=== PATIENT | female | born 1950 ===

== ENCOUNTER 2023-03-12 22:36 | Inpatient (IN) | payer MEDICARE, SELFPAY ==
--- NOTE | 2023-03-12 | ECG_ITS ---
Test Reason : TACHYCARDIA Blood Pressure : / mmHG Vent. Rate : 140 BPM Atrial Rate : 000 BPM P-R Int : 000 ms QRS Dur : 144 ms QT Int : 364 ms P-R-T Axes : 000 133 -49 degrees QTc Int : 555 ms Possible Atrial flutter with 2 to 1 block Left bundle branch block Abnormal ECG No previous ECGs available Referred By: Chris Mendez Electronically Signed By:JENNA CORNELIUS MD
--- NOTE | ~2023-03-12 | XR_ITS ---
EXAMINATION: XR CHEST CLINICAL INFORMATION: Shortness of breath COMPARISON: None available. TECHNIQUE: Frontal view of the chest was obtained. FINDINGS: There is mild cardiac enlargement. There is mild central pulmonary vascular congestion along with some peribronchial cuffing and thickening of the minor fissure. Tiny pleural effusions may be present. Bibasilar atelectasis is seen. Degenerative changes are present in the spine with scoliosis convex to right. XR/XR chest 1V IMPRESSION: Cardiomegaly with mild pulmonary vascular congestion and possible tiny pleural effusions.
--- NOTE | ~2023-03-12 | CT_ITS ---
EXAMINATION: CT ANGIOGRAM OF THE CHEST WITH AND WITHOUT CONTRAST (CT PULMONARY ANGIOGRAM FOR PE) CLINICAL INFORMATION: Reason for Exam acute sob ?PE COMPARISON: None available. TECHNIQUE: Prior to contrast administration, noncontrast localization images were obtained. Subsequently, multidetector volumetric imaging was performed from the thoracic inlet to below the diaphragms following the administration of 65 mL Omnipaque 350 intravenous contrast. No contrast reaction reported Sagittal, coronal, and MIP oblique sagittal reformatted images were obtained on the CT workstation, uploaded to PACS, and reviewed. This CT examination was performed using dose optimization techniques as appropriate, variously including the following: *Automated exposure control *Adjustment of mA and/or kV according to patient size (this includes techniques or standardized protocols for targeted exams where dose is matched to indication/reason for exam; i.e. extremities or head) *Use of iterative reconstruction technique Total exam dose-length product 372 mGy-cm FINDINGS: QUALITY OF STUDY/CONTRAST BOLUS: Suboptimal. PULMONARY ARTERIES: Limited evaluation due to extensive respiratory motion artifact. However, within these limitations there does appear to be a filling defect in the right lower lobe pulmonary artery on image 266/514 and possibly in a left lower lobe segmental vessel on image 287/514, suspicious for pulmonary emboli. THORACIC AORTA: Suboptimally assessed due to the phase of postcontrast imaging. There is atherosclerotic calcification along the aorta. LUNG: Significantly limited detailed evaluation due to extensive respiratory motion artifact. Mild bibasilar atelectasis is suspected. PLEURA: Small right and trace left pleural effusions. No pneumothorax. MEDIASTINUM: Visualized thyroid gland is grossly unremarkable. No appreciable mediastinal lymphadenopathy. There is cardiomegaly without pericardial effusion. No evidence of septal bowing or right heart strain. CORONARY ARTERY CALCIFICATION: None visualized on this study. CHEST WALL/AXILLA: No axillary or internal mammary lymphadenopathy. OSSEOUS STRUCTURES: No acute or suspicious osseous abnormality. UPPER ABDOMEN: Grossly unremarkable for acute findings, though suboptimally assessed due to motion artifact. Partially visualized hypodensity in the lateral left kidney favors a cyst; no follow-up recommended. No reflux of contrast into the hepatic veins to suggest elevated right heart pressures. CT/CT angio chest PE protocol IMPRESSION: 1. Limited assessment due to extensive respiratory motion artifact. However, there do appear to be filling defects in the right lower lobe pulmonary artery and possibly in a left lower lobe segmental vessel, suspicious for pulmonary emboli. 2. Small right and trace left pleural effusions. 3. Cardiomegaly. VTE: positive. This critical result was discussed with Dr. Tellez on 03/13/2023 1:23 AM, and it was ascertained that the content and urgency of the report was understood at the time of direct communication.
--- NOTE | ~2023-03-12 | XR_ITS ---
EXAMINATION: XR CHEST CLINICAL INFORMATION: Central line COMPARISON: 03/12/2023 TECHNIQUE: Frontal view of the chest was obtained. FINDINGS: Right IJ central line tip lies in the region of the cavoatrial junction. Lung volumes are symmetric. Mild bibasilar opacities favoring atelectasis along with small pleural effusions, better demonstrated on recent CT. No evidence of pneumothorax. Mildly prominent central vasculature without overt edema. Cardiac silhouette remains enlarged. Calcification is present at the aortic arch. No acute osseous findings are seen. XR/XR chest 1V IMPRESSION: Right IJ central line tip in the region of the cavoatrial junction. Small pleural effusions and mild bibasilar opacities favoring atelectasis.
--- NOTE | 2023-03-12 22:47 | ECG_ITS ---
Test Reason : RYTHYM CHANGE Blood Pressure : / mmHG Vent. Rate : 147 BPM Atrial Rate : 147 BPM P-R Int : 080 ms QRS Dur : 140 ms QT Int : 320 ms P-R-T Axes : 000 121 -50 degrees QTc Int : 500 ms Possible Atrial flutter with 2 to 1 block Left bundle branch block T wave abnormality, consider inferolateral ischemia Abnormal ECG When compared with ECG of 12-MAR-2023 22:44, No significant changes seen Referred By: Deb Escamilla Electronically Signed By:JENNA CORNELIUS MD
--- NOTE | 2023-03-12 22:47 | ED_ITS ---
HPI - SOB/Dyspnea General Chief Complaint: Dyspnea Stated Complaint: SOB,RESPIRATORY DISTRESS 78% RA 95%W/ CPAP Time Seen by Provider: 03/12/23 22:38 Source: patient and EMS Mode of arrival: EMS Limitations: no limitations History of Present Illness HPI Narrative: Patient is 79 years old with history of left MCA stroke with right-sided weakness , thrombocythemia, AFib on aspirin and Plavix,diabetes, hypertension no history of heart failure or lung conditions came from long term for acute shortness breath saturating 75% with dry cough no fever no chills no chest pain or palpitation on arrival patient was tachycardic with heart rate of 140 saturating 95% on CPAP patient is DNR DNI Related Data Allergies Allergy/AdvReac Type Severity Reaction Status Date / Time lisinopril Allergy Unknown Unknown Verified 03/12/23 23:14 atorvastatin AdvReac Unknown Unknown Verified 03/12/23 23:14 metformin AdvReac Unknown Unknown Verified 03/12/23 23:14 spironolactone AdvReac Unknown Unknown Verified 03/12/23 23:14 Review of Systems 2 Review of Systems: Yes all other systems are reviewed and are negative [facility] Past Medical History Medical History (Updated 03/13/23 @ 01:33 by Chris Mendez MD) Essential thrombocythemia Rheumatic valvular disease Hyperlipemia HTN (hypertension) Atrial fibrillation CKD (chronic kidney disease) stage 3, GFR 30-59 ml/min Diabetes mellitus Aphasia Chronic ischemic left MCA stroke Social History Social History Advance Directives: No Advance Directives Information Provided: Yes Physical Exam 2 Vital Signs: Vital Signs: Last Vital Signs Temp 98.7 F 03/13/23 00:16 Pulse 115 H 03/13/23 02:50 Resp 28 H 03/13/23 02:50 BP 90/67 03/13/23 02:50 Pulse Ox 98 03/13/23 02:50 O2 Del Method High Flow Nasal C annula 03/13/23 02:50 O2 Flow Rate 35 03/13/23 02:50 Oxygen Flow Rate 5 03/12/23 22:55 BMI result Body Mass Index 22.8 Appearance: Alert. Oriented X3. severe respiratory distress , thin emaciated Eyes: PERRLA, ENT: Pharynx normal. Oral Mucosa moist Neck: Normal inspection. Neck supple. CVS: tachycardic with heart rate of 140. Pulses normal. Respiratory: No respiratory distress. Equal air entry bilateral, no wheezing/rales/rhonchi Abdomen: Soft and nontender. Bowel sounds are present, no mass palpable, no CVA tenderness Skin: Skin warm and dry. Normal skin color. Normal skin turgor. Extremities: No lower extremity edema. No calf tenderness Neuro: Oriented X 3. right hemiparesis .No cerebellar signs , cranial nerves II-XII intact Medications Administered Generic Name Dose Route Start Last Admin Trade Name Freq PRN Reason Stop Dose Admin Diltiazem HCl 125 mg/ Sodium 125 mls @ 0 mls/hr 03/13/23 01:00 03/13/23 02:18 Chloride IVCONT 15 mg/hr .Q0M STONE 15 mls/hr Titration Protocol Per Protocol Discontinued Medications Generic Name Dose Route Start Last Admin Trade Name Freq PRN Reason Stop Dose Admin Acetaminophen 650 mg 03/12/23 23:04 03/12/23 23:12 Acetaminophen Supp 650 Mg Supp.Rect LA 03/12/23 23:05 650 mg ONCE ONE Administration Dexamethasone Sodium Phosphate 6 mg 03/13/23 02:05 03/13/23 02:29 Dexamethasone Sod Phosphate 4 Mg/Ml Vial IVPUSH 03/13/23 02:06 6 mg ONCE ONE Administration Diltiazem HCl 10 mg 03/12/23 23:01 03/12/23 23:10 Diltiazem Hcl 50 Mg/10 Ml Vial IVPUSH 03/12/23 23:02 10 mg STAT STA Administration Furosemide 20 mg 03/12/23 23:25 03/13/23 00:02 Furosemide 20 Mg/2 Ml Vial IVPUSH 03/12/23 23:26 20 mg ONCE ONE Administration Protocol Heparin Sodium (Porcine) 3,700 unit 03/13/23 01:26 03/13/23 01:39 Heparin Sodium,Porcine 5,000 Unit/Ml Vial 60 unit/kg (3700 unit) 03/13/23 01:27 3,700 unit IVPUSH Administration ONCE ONE Sodium Chloride 1,000 mls @ 999 mls/hr 03/12/23 23:03 03/13/23 01:31 Ns IV 03/13/23 00:03 Infused .Q1H1M ONE Infusion Ceftriaxone Sodium 1 gm/ 50 mls @ 100 mls/hr 03/12/23 23:15 03/13/23 01:31 Sodium Chloride IV 03/12/23 23:44 Infused ONCE ONE Infusion Calcium Gluconate 2 gm in 100 mls @ 50 mls/hr 03/12/23 23:25 03/13/23 01:14 Calcium Gluconate IV 03/13/23 01:24 50 mls/hr ONCE ONE Administration Insulin Human Regular 5 unit 03/13/23 01:32 03/13/23 02:32 Insulin Regular, Human 100 Unit/Ml 3 Ml Vial IVPUSH 03/13/23 01:33 5 unit ONCE ONE Administration Iohexol 65 ml 03/13/23 00:39 03/13/23 00:40 Iohexol 350 Mg/Ml 100 Ml Infus..Btl IV 03/13/23 00:40 65 ml ONCE ONE Administration Sodium Zirconium Cyclosilicate 10 gm 03/12/23 23:25 03/13/23 00:02 Sodium Zirconium Cyclosilicate 10 Gm Powd.Pack PO 03/12/23 23:26 10 gm ONCE ONE Administration Medical Decision Making Medical Decision Making [facility] Narrative: patient with COVID-19 with UTI with acute shortness of breath CTA chest done which showed bilateral PE, pleural effusion no saddle emboli will start patient on haparin and admit patient was placed on high-flow but tachypnea and increased shortness of breath at this time patient on high Flow 50% FiO2 35 liters/minutes Differential Diagnosis Differential Diagnoses: The differential diagnosis associated with the presentation includes CHF/pneumonia/ COVID/ PE/pneumothorax /sepsis acute hypoxic failure Admission/Observation Consideration of admission/observation: Escalation of care including admission/observation considered Consult Healthcare Provider Management of the patient was discussed with: Hospitalist Lab Data [facility] Lab Attestation statement: I reviewed the patient's lab results. 03/12/23 22:52 03/13/23 01:11 Labs: Lab Results 03/12/23 03/12/23 03/12/23 Range/Units 00:00 22:45 22:52 WBC 22.2 H (4.8-10.8) X10*3/uL RBC 4.29 (4.20-5.50) X10*6/uL Hgb 12.1 (12.0-16.0) g/dl Hct 37.2 (37.0-47.0) % MCV 86.7 (80.0-98.0) fL MCH 28.2 (27.0-33.0) pg MCHC 32.5 (31.0-35.0) g/dl RDW 13.5 (11.0-16.0) % Plt Count 482 H D (160-400) X10*3/uL MPV 9.8 (9.4-12.3) fL Immature Gran % (Auto) 1.3 H (0.0-0.4) % Neut % (Auto) 84.7 H (45-73) % Lymph % (Auto) 4.9 L (20-40) % Elliott % (Auto) 8.3 (2-11) % Eos % (Auto) 0.1 (0-4) % Baso % (Auto) 0.7 (0-2) % Lymph # (Auto) 1.1 L (1.2-4.9) X10*3/uL Elliott # (Auto) 1.8 H (0.1-1.2) X10*3/uL Eos # (Auto) 0.0 (0.0-0.4) X10*3/uL Baso # (Auto) 0.2 (0.0-0.2) X10*3/uL Abs Immat Gran (auto) 0.28 H (0.00-0.03) X10*3/uL Absolute Neuts (auto) 18.9 H (2.0-8.3) x10*3/uL Absolute Nucleated RBC 0.000 (0.0-0.012) X10*3/uL Nucleated RBC % (auto) 0.0 (0.0-0.2) /100WBC Smear Tech's Comments VERIFIED PT (11.1-13.3) SEC INR (0.9-1.1) APTT (26.0-36.4) SEC D-Dimer High Sensitivty NG/ML VBG pH (7.32-7.43) VBG pCO2 mmHg VBG pO2 mmHg VBG HCO3 (22-26) mmol/L VBG O2 Saturation % VBG Base Excess mmol/L Sodium 129 L (135-145) mmol/L Potassium 6.7 H* D (3.3-5.1) mmol/L Chloride 99 (96-108) mmol/L Carbon Dioxide 16 L (22-29) mmol/L Anion Gap 21 H (12-20) BUN 33 H (9-16) mg/dL Creatinine 1.55 H (0.5-1.4) mg/dL Estim Creat Clear Calc 29.1 Estimated GFR 33 Random Glucose 308 H (60-115) mg/dL Lactic Acid 1.5 (0.5-2.0) mmol/L Calcium 9.1 (8.4-10.2) mg/dL Magnesium 2.0 (1.6-2.6) mg/dL Total Bilirubin 0.9 (0.0-1.0) mg/dL AST 23 (5-31) U/L ALT 15 (0-31) U/L Alkaline Phosphatase 91 (39-117) U/L Troponin I High Sens (<3.5-17.0) ng/L B-Natriuretic Peptide 1919 H (<100) pg/mL Total Protein 6.0 L (6.5-8.0) g/dL Albumin 2.6 L (3.5-5.0) g/dL Urine Color Urine Appearance Urine pH (5.0-9.0) Ur Specific Canadensis (1.005-1.025) Urine Protein (Neg-Trace) mg/dL Urine Glucose (UA) (Negative) mg/dL Urine Ketones (Negative) mg/dL Urine Blood (Negative) Urine Nitrite (Negative) Ur Leukocyte Esterase (Negative) Urine RBC (0-2) /HPF Urine WBC (0-5) /HPF Ur Squamous Epith Cells (0-2) /HPF Urine Bacteria (None Seen) Hyaline Casts (0-2) /LPF Influenza Type A (PCR) NEGATIVE (Negative) Influenza Type B (PCR) NEGATIVE (Negative) RSV RNA Qual (PCR) NEGATIVE (Negative) SARS-CoV-2 RNA (RT-PCR) POSITIVE A (Negative) 03/12/23 03/12/23 03/12/23 Range/Units 23:36 23:43 23:43 WBC (4.8-10.8) X10*3/uL RBC (4.20-5.50) X10*6/uL Hgb (12.0-16.0) g/dl Hct (37.0-47.0) % MCV (80.0-98.0) fL MCH (27.0-33.0) pg MCHC (31.0-35.0) g/dl RDW (11.0-16.0) % Plt Count (160-400) X10*3/uL MPV (9.4-12.3) fL Immature Gran % (Auto) (0.0-0.4) % Neut % (Auto) (45-73) % Lymph % (Auto) (20-40) % Elliott % (Auto) (2-11) % Eos % (Auto) (0-4) % Baso % (Auto) (0-2) % Lymph # (Auto) (1.2-4.9) X10*3/uL Elliott # (Auto) (0.1-1.2) X10*3/uL Eos # (Auto) (0.0-0.4) X10*3/uL Baso # (Auto) (0.0-0.2) X10*3/uL Abs Immat Gran (auto) (0.00-0.03) X10*3/uL Absolute Neuts (auto) (2.0-8.3) x10*3/uL Absolute Nucleated RBC (0.0-0.012) X10*3/uL Nucleated RBC % (auto) (0.0-0.2) /100WBC Smear Tech's Comments PT 13.5 H (11.1-13.3) SEC INR 1.1 (0.9-1.1) APTT 25.8 L (26.0-36.4) SEC D-Dimer High Sensitivty 2061 Cancelled NG/ML VBG pH (7.32-7.43) VBG pCO2 mmHg VBG pO2 mmHg VBG HCO3 (22-26) mmol/L VBG O2 Saturation % VBG Base Excess mmol/L Sodium (135-145) mmol/L Potassium (3.3-5.1) mmol/L Chloride (96-108) mmol/L Carbon Dioxide (22-29) mmol/L Anion Gap (12-20) BUN (9-16) mg/dL Creatinine (0.5-1.4) mg/dL Estim Creat Clear Calc Estimated GFR Random Glucose (60-115) mg/dL Lactic Acid (0.5-2.0) mmol/L Calcium (8.4-10.2) mg/dL Magnesium (1.6-2.6) mg/dL Total Bilirubin (0.0-1.0) mg/dL AST (5-31) U/L ALT (0-31) U/L Alkaline Phosphatase (39-117) U/L Troponin I High Sens 50.8 H* (<3.5-17.0) ng/L B-Natriuretic Peptide (<100) pg/mL Total Protein (6.5-8.0) g/dL Albumin (3.5-5.0) g/dL Urine Color Dark Yellow Urine Appearance Turbid Urine pH 5.5 (5.0-9.0) Ur Specific [place] 1.015 (1.005-1.025) Urine Protein 100 (2+) H (Neg-Trace) mg/dL Urine Glucose (UA) Negative (Negative) mg/dL Urine Ketones Trace (Negative) mg/dL Urine Blood Large (3+) H (Negative) Urine Nitrite Negative (Negative) Ur Leukocyte Esterase Large (3+) H (Negative) Urine RBC >20 H (0-2) /HPF Urine WBC >50 H (0-5) /HPF Ur Squamous Epith Cells 6-10 (0-2) /HPF Urine Bacteria 4+ (None Seen) Hyaline Casts 6-10 (0-2) /LPF Influenza Type A (PCR) (Negative) Influenza Type B (PCR) (Negative) RSV RNA Qual (PCR) (Negative) SARS-CoV-2 RNA (RT-PCR) (Negative) 03/12/23 03/13/23 Range/Units 23:48 01:11 WBC (4.8-10.8) X10*3/uL RBC (4.20-5.50) X10*6/uL Hgb (12.0-16.0) g/dl Hct (37.0-47.0) % MCV (80.0-98.0) fL MCH (27.0-33.0) pg MCHC (31.0-35.0) g/dl RDW (11.0-16.0) % Plt Count (160-400) X10*3/uL MPV (9.4-12.3) fL Immature Gran % (Auto) (0.0-0.4) % Neut % (Auto) (45-73) % Lymph % (Auto) (20-40) % Elliott % (Auto) (2-11) % Eos % (Auto) (0-4) % Baso % (Auto) (0-2) % Lymph # (Auto) (1.2-4.9) X10*3/uL Elliott # (Auto) (0.1-1.2) X10*3/uL Eos # (Auto) (0.0-0.4) X10*3/uL Baso # (Auto) (0.0-0.2) X10*3/uL Abs Immat Gran (auto) (0.00-0.03) X10*3/uL Absolute Neuts (auto) (2.0-8.3) x10*3/uL Absolute Nucleated RBC (0.0-0.012) X10*3/uL Nucleated RBC % (auto) (0.0-0.2) /100WBC Smear Tech's Comments PT (11.1-13.3) SEC INR (0.9-1.1) APTT (26.0-36.4) SEC D-Dimer High Sensitivty NG/ML VBG pH 7.46 H (7.32-7.43) VBG pCO2 25 mmHg VBG pO2 62 mmHg VBG HCO3 18 L (22-26) mmol/L VBG O2 Saturation 87.0 % VBG Base Excess -4.1 mmol/L Sodium 130 L (135-145) mmol/L Potassium 5.9 H (3.3-5.1) mmol/L Chloride 98 (96-108) mmol/L Carbon Dioxide 18 L (22-29) mmol/L Anion Gap 20 (12-20) BUN 34 H (9-16) mg/dL Creatinine 1.59 H (0.5-1.4) mg/dL Estim Creat Clear Calc 28.3 Estimated GFR 32 Random Glucose 293 H (60-115) mg/dL Lactic Acid (0.5-2.0) mmol/L Calcium 9.0 (8.4-10.2) mg/dL Magnesium (1.6-2.6) mg/dL Total Bilirubin (0.0-1.0) mg/dL AST (5-31) U/L ALT (0-31) U/L Alkaline Phosphatase (39-117) U/L Troponin I High Sens (<3.5-17.0) ng/L B-Natriuretic Peptide (<100) pg/mL Total Protein (6.5-8.0) g/dL Albumin (3.5-5.0) g/dL Urine Color Urine Appearance Urine pH (5.0-9.0) Ur Specific [place] (1.005-1.025) Urine Protein (Neg-Trace) mg/dL Urine Glucose (UA) (Negative) mg/dL Urine Ketones (Negative) mg/dL Urine Blood (Negative) Urine Nitrite (Negative) Ur Leukocyte Esterase (Negative) Urine RBC (0-2) /HPF Urine WBC (0-5) /HPF Ur Squamous Epith Cells (0-2) /HPF Urine Bacteria (None Seen) Hyaline Casts (0-2) /LPF Influenza Type A (PCR) (Negative) Influenza Type B (PCR) (Negative) RSV RNA Qual (PCR) (Negative) SARS-CoV-2 RNA (RT-PCR) (Negative) Radiology Impression Discussion of test interpretation with radiology: I have reviewed the radiologist's reading. Radiologist Impression: [place] [id number] CT Scan Report Signed Patient: Brenna Driver MR#: [id number] : 1950 Acct:[id number] Age/Sex: 72 / F ADM Date: 03/12/23 Loc: .ED Attending Dr: Ordering Physician: Chris Mendez MD Date of Service: 03/13/23 Procedure(s): CT angio chest PE protocol Accession Number(s): [id number] cc: LISET LICONA MD; Chris Mendez MD~ EXAMINATION: CT ANGIOGRAM OF THE CHEST WITH AND WITHOUT CONTRAST (CT PULMONARY ANGIOGRAM FOR PE) CLINICAL INFORMATION: Reason for Exam acute sob ?PE COMPARISON: None available. TECHNIQUE: Prior to contrast administration, noncontrast localization images were obtained. Subsequently, multidetector volumetric imaging was performed from the thoracic inlet to below the diaphragms following the administration of 65 mL Omnipaque 350 intravenous contrast. No contrast reaction reported Sagittal, coronal, and MIP oblique sagittal reformatted images were obtained on the CT workstation, uploaded to PACS, and reviewed. This CT examination was performed using dose optimization techniques as appropriate, variously including the following: *Automated exposure control *Adjustment of mA and/or kV according to patient size (this includes techniques or standardized protocols for targeted exams where dose is matched to indication/reason for exam; i.e. extremities or head) *Use of iterative reconstruction technique Total exam dose-length product 372 mGy-cm FINDINGS: QUALITY OF STUDY/CONTRAST BOLUS: Suboptimal. PULMONARY ARTERIES: Limited evaluation due to extensive respiratory motion artifact. However, within these limitations there does appear to be a filling defect in the right lower lobe pulmonary artery on image 266/514 and possibly in a left lower lobe segmental vessel on image 287/514, suspicious for pulmonary emboli. THORACIC AORTA: Suboptimally assessed due to the phase of postcontrast imaging. There is atherosclerotic calcification along the aorta. LUNG: Significantly limited detailed evaluation due to extensive respiratory motion artifact. Mild bibasilar atelectasis is suspected. PLEURA: Small right and trace left pleural effusions. No pneumothorax. MEDIASTINUM: Visualized thyroid gland is grossly unremarkable. No appreciable mediastinal lymphadenopathy. There is cardiomegaly without pericardial effusion. No evidence of septal bowing or right heart strain. CORONARY ARTERY CALCIFICATION: None visualized on this study. CHEST WALL/AXILLA: No axillary or internal mammary lymphadenopathy. OSSEOUS STRUCTURES: No acute or suspicious osseous abnormality. UPPER ABDOMEN: Grossly unremarkable for acute findings, though suboptimally assessed due to motion artifact. Partially visualized hypodensity in the lateral left kidney favors a cyst; no follow-up recommended. No reflux of contrast into the hepatic veins to suggest elevated right heart pressures. CT/CT angio chest PE protocol IMPRESSION: 1. Limited assessment due to extensive respiratory motion artifact. However, there do appear to be filling defects in the right lower lobe pulmonary artery and possibly in a left lower lobe segmental vessel, suspicious for pulmonary emboli. 2. Small right and trace left pleural effusions. 3. Cardiomegaly. VTE: positive. This critical result was discussed with Dr. Tellez on 03/13/2023 1:23 AM, and it was ascertained that the content and urgency of the report was understood at the time of direct communication. Dictated By: Gene Cerda MD Signed By: <Electronically signed by Gene Cerda MD in OV> 03/13/23 0124 DD/ 0048 TD/TT: Hog Ringer: RICKI Procedures Central Line Placement Right IJ: Time Out Performed: Yes Patient Placed on Monitor/Pulse Ox: Yes MD Prep: mask, gown and gloves Central Line Prep: Chlorhexidine scrub and sterile drapes applied Local Anesthetic: lidocaine 2% Amount of anesthesia used (mL): 4 Ultrasound Used for Placement: Yes Central Line Lumen Inserted: triple Post Procedure: sutured in place, good blood return, all ports aspirated, flushed, capped and sterile dressing applied Post Procedure X-Ray: tip of catheter in good position Patient Tolerated Procedure: well Complications: none Critical Care Time Critical Care Time Critical Care Time: Yes Total Critical Care Time: 70 Attestation: The patient was critically ill with a high probability of imminent or life threatening deterioration. I spent greater than 80 minutes of discontinuous time evaluating the patient,delivering critical care at the bedside, discussing and evaluating pertinent data with consultants. Critical care time does not include time spent performing separately billable procedures or teaching. Total time spent performing critical care was 70 minutes. Discharge Plan Discharge Clinical Impression: COVID-19, Pulmonary embolism, Acute hypoxic respiratory failure, Acute UTI Patient Disposition: Admitted As Inpatient
[2023-03-12 22:55] VITALS: BP 110/72; BP 124/82; PULSE 140; PULSE 147; RESP 35; TEMP 36.9; O2SAT 95; O2SAT 96; BMI 22.8
[2023-03-12 22:58] LABS: Basophils Absolute Auto 0.2 X10*3/uL (0.0-0.2); Basophils Percent Auto 0.7 % (0-2); Eosinophils Percent Auto 0.1 % (0-4); Hematocrit 37.2 % (37.0-47.0); Hemoglobin 12.1 g/dl (12.0-16.0); Imm Gran Abs Auto 0.28 X10*3/uL (0.00-0.03); Imm Gran Pct Auto 1.3 % (0.0-0.4); Lymphocytes Absolute Auto 1.1 X10*3/uL (1.2-4.9); Lymphocytes Percent Auto 4.9 % (20-40); MANUAL DIFF FLAG SCAN; Mean Corpuscular HGB Conc 32.5 g/dl (31.0-35.0); Mean Corpuscular Hemoglobin 28.2 pg (27.0-33.0); Mean Corpuscular Volume 86.7 fL (80.0-98.0); Mean Platelet Volume 9.8 fL (9.4-12.3); Monocytes Absolute Auto 1.8 X10*3/uL (0.1-1.2); Monocytes Percent Auto 8.3 % (2-11); Neutrophils Absolute Auto 18.9 x10*3/uL (2.0-8.3); Neutrophils Percent Auto 84.7 % (45-73); Platelet Count 482 X10*3/uL (160-400); Red Blood Count 4.29 X10*6/uL (4.20-5.50); Red Cell Distribution Width 13.5 % (11.0-16.0); SCAN SMEAR FLAG 1; White Blood Count 22.2 X10*3/uL (4.8-10.8)
--- NOTE | 2023-03-12 23:00 | PC.NURSE ---
pt toriea from [place] where staff reports pt having increased work of breathing. staff reports pt o2 sat of 78% on room air, pt placed on 2 L nasal cannula and sating at 88%. ems placed pt on cpap and pt was sating at 95%. respirations even but labored at this time. pt placed on oxymax 5L and sating between 94-96%. pt tachycardic on tele between 130-145, provider aware.
[2023-03-12] MEDS: dilTIAZem HCL 50 MG/10 ML VIAL 10 MG IVPUSH (23:10)
[2023-03-12] MEDS: 0.9 % Sodium Chloride 1,000 ML 999 ML IV (23:12)
[2023-03-12] MEDS: Acetaminophen Supp 650 MG SUPP.RECT PR (23:12)
[2023-03-12 23:15] VITALS: BP 124/82; PULSE 96; RESP 25; O2SAT 95
[2023-03-12 23:17] LABS: SLIDE REVIEW VERIFIED
[2023-03-12 23:19] LABS: B Type Natriuretic Peptide 1919 pg/mL (<100)
[2023-03-12 23:22] VITALS: BP 117/57; PULSE 93; RESP 24; O2SAT 95
[2023-03-12 23:25] LABS: Alanine Aminotransferase 15 U/L (0-31); Albumin Level 2.6 g/dL (3.5-5.0); Alkaline Phosphatase 91 U/L (39-117); Anion Gap 21 (12-20); Aspartate Amino Transferase 23 U/L (5-31); Bilirubin Total 0.9 mg/dL (0.0-1.0); Blood Urea Nitrogen 33 mg/dL (9-16); Calcium 9.1 mg/dL (8.4-10.2); Carbon Dioxide 16 mmol/L (22-29); Chloride 99 mmol/L (96-108); Creatinine Clr Calc Pharmacy 29.1; Estimated Glomerular Filt Rate 33; Glucose Random 308 mg/dL (60-115); Potassium 6.7 mmol/L (3.3-5.1); Sodium 129 mmol/L (135-145)
--- NOTE | 2023-03-12 23:33 | PC.NURSE ---
this rn straight cathed pt at this time with assietnce from [place]. pt produced 300ml of cloudy yellow urine. pt tolerated procedure well.
[2023-03-12 23:37] LABS: Influenza A PCR NEGATIVE (Negative); Influenza B PCR NEGATIVE (Negative); Resp Syncy Virus RNA Qual PCR NEGATIVE (Negative); SARS COV2 PCR INHOUSE POSITIVE (Negative)
[2023-03-12 23:42] VITALS: BP 168/71; PULSE 139; RESP 25; O2SAT 98
[2023-03-12 23:49] LABS: Appearance Urine Turbid; Color Urine Dark Yellow; Glucose Urine UA Negative (Negative); Leukocyte Esterase Urine Large (3+) (Negative); Nitrite Urine Negative (Negative); PH 5.5 (5.0-9.0); Specific Gravity - Urine 1.015 (1.005-1.025); UMIC TRIGGER UACC YES; Urine Blood Large (3+) (Negative); Urine Ketones Trace mg/dL (Negative); Urine Protein 100 (2+) mg/dL (Neg-Trace)
[2023-03-12 23:53] LABS: VBG Base Excess -4.1 mmol/L; VBG HCO3 18 mmol/L (22-26); VBG pCO2 25 mmHg; VBG pH 7.46 (7.32-7.43); VBG pO2 62 mmHg
[2023-03-12 23:53] LABS: Venous Blood Gas Refer to POC result
[2023-03-12 23:58] LABS: INTERNATIONAL NORM RATIO 1.1 (0.9-1.1); Prothrombin Time 13.5 SEC (11.1-13.3)
[2023-03-13] VITALS (28 sets, daily range): BP systolic 90–155; BP diastolic 54–87; PULSE 66–165; RESP 16–30; TEMP 36–37.1; O2SAT 5–99; BMI 22.6
[2023-03-13] LABS: D Dimer High Sensitivity 2061 NG/ML
--- NOTE | 2023-03-13 | ECG_ITS ---
Test Reason : tachy Blood Pressure : / mmHG Vent. Rate : 133 BPM Atrial Rate : 153 BPM P-R Int : 000 ms QRS Dur : 140 ms QT Int : 342 ms P-R-T Axes : 000 117 -49 degrees QTc Int : 509 ms Atrial fibrillation Left bundle branch block T wave abnormality, consider inferior ischemia Abnormal ECG When compared with ECG of 13-MAR-2023 04:56, Atrial fibrillation has replaced Atrial flutter with 2 to 1 block Referred By: Deb Escamilla Electronically Signed By:JENNA CORNELIUS MD
[2023-03-13 00:01] LABS: Partial Thromboplastin Time 25.8 SEC (26.0-36.4)
[2023-03-13] MEDS: Sodium Zirconium Cyclosilicate 10 GM POWD.PACK PO ×2 (00:02→09:19)
[2023-03-13] MEDS: Furosemide 20 MG/2 ML VIAL IVPUSH (00:02)
[2023-03-13 00:03] LABS: Bacteria Urine 4+ (None Seen); RBC Urine >20 /HPF (0-2); UACC Culture Trigger YES; WBC Urine >50 /HPF (0-5)
[2023-03-13] MEDS: cefTRIAXone sodium 1 GM in 0.9 % Sodium Chloride 50 ML IV ×2 (00:05→20:53)
[2023-03-13 00:18] LABS: Lactic Acid 1.5 mmol/L (0.5-2.0)
[2023-03-13 00:36] LABS: Troponin-I High Sensitivity 50.8 ng/L (<3.5-17.0)
--- NOTE | 2023-03-13 00:36 | PC.NURSE ---
critical lab result troponin 50.8,provider aware.
[2023-03-13] MEDS: iohexoL 350 MG/ML 100 ML INFUS..BTL 65 ML IV (00:40)
[2023-03-13] MEDS: Calcium Gluconate/NaCl,Iso-Osm 2 GM/100 ML PLAST..BAG IV (01:14)
--- NOTE | 2023-03-13 01:30 | PC.NURSE ---
delay in calcium iv hanging d/t pt only having one IV access.
--- NOTE | 2023-03-13 01:34 | P.HPHOSP_ITS ---
History of Present Illness Date of Service: 03/13/23 Chief Complaint: Dyspnea This is a 72-year-old female with pertinent history of CVA with residual right- sided weakness, paroxysmal atrial fibrillation not on anticoagulation, evu-[id number]-[id number] diabetes mellitus, essential hypertension, mixed hyperlipidemia who was sent to the emergency department for evaluation of dyspnea and hypoxemia. Patient is a poor historian and unable to obtain history from the patient. History obtained from ER provider and chart review. Patient presents for dyspnea and was found saturating 75% on room air. Was placed on NIV by [facility] and brought to the ER. In the emergency department, imaging with PE and patient tested positive for COVID-19. She was found to be in AFib with RVR and started on IV diltiazem which was weaned. UA concerning for UTI. Unable to obtain review of systems Review of Systems 2 Review of Systems: Yes Unobtainable due to mental status [facility] Medical History Essential thrombocythemia Rheumatic valvular disease Hyperlipemia HTN (hypertension) Atrial fibrillation CKD (chronic kidney disease) stage 3, GFR 30-59 ml/min Diabetes mellitus Aphasia Chronic ischemic left MCA stroke Pertinent family history: Unable to obtain Social History Advance Directives: No Advance Directives Information Provided: Yes Meds Allergies Allergy/AdvReac Type Severity Reaction Status Date / Time lisinopril Allergy Unknown Unknown Verified 03/12/23 23:14 atorvastatin AdvReac Unknown Unknown Verified 03/12/23 23:14 metformin AdvReac Unknown Unknown Verified 03/12/23 23:14 spironolactone AdvReac Unknown Unknown Verified 03/12/23 23:14 Active Medications: Current Medications Acetaminophen (Acetaminophen 325 Mg Tablet) 650 mg PO Q6H PRN PRN Reason: Pain, Mild (Pain Scale 1-3) Acetaminophen (Acetaminophen Supp 650 Mg Supp.Rect) 650 mg [place] Q6H PRN PRN Reason: Pain, Mild (Pain Scale 1-3) Heparin Sodium (Porcine) (Heparin Sodium,Porcine 5,000 Unit/Ml Vial) 2,500 unit 40 unit/kg (2500 unit) IVPUSH PROTOCOL BOLUS PRN; Protocol PRN Reason: 40 unit/kg - Heparin Protocol Heparin Sodium (Porcine) (Heparin Sodium,Porcine 5,000 Unit/Ml Vial) 5,000 unit 80 unit/kg (5000 unit) IVPUSH PROTOCOL BOLUS PRN; Protocol PRN Reason: 80 unit/kg - Heparin Protocol Diltiazem HCl 125 mg/ Sodium (Chloride) 125 mls @ 0 mls/hr IVCONT .Q0M STONE; Protocol Heparin Sodium/Sodium Chloride (Heparin Sodium,Porcine/1/2ns) 25,000 unit in 250 mls @ 0 mls/hr IVCONT .Q0M STONE; Protocol Sodium Chloride (0.9 % Sodium Chloride Flush 3 Ml Syringe) 3 ml IVFLUSH QSHIFT [facility] Physical Exam 2 Vital Signs and Narrative: Vital Signs: Last Vital Signs Temp 98.7 F 03/13/23 00:16 Pulse 139 H 03/13/23 00:16 Resp 26 H 03/13/23 00:16 BP 130/69 03/13/23 00:16 Pulse Ox 5 L 03/13/23 00:16 O2 Del Method Oxymask 03/13/23 00:16 O2 Flow Rate 5 03/12/23 23:42 Oxygen Flow Rate 5 03/12/23 22:55 BMI result Body Mass Index 22.8 Elderly female lying in bed in distress on supplemental oxygen Neck supple Regular rate and rhythm, S1-S2 heard Bilateral crackles without wheezing Abdomen soft nontender, no guarding, no rigidity Patient is awake, alert and oriented to self, disoriented to place, time and person ; no focal motor deficit Psych: Normal mood Bilateral pedal edema Results Labs 03/12/23 22:52 03/13/23 01:11 Labs: Laboratory Results - last 24 hr 03/12/23 03/12/23 03/12/23 00:00 22:45 22:52 MCV 86.7 MCH 28.2 MCHC 32.5 RDW 13.5 Plt Count 482 H D MPV 9.8 Immature Gran % (Auto) 1.3 H Neut % (Auto) 84.7 H Lymph % (Auto) 4.9 L Garvin % (Auto) 8.3 Eos % (Auto) 0.1 Baso % (Auto) 0.7 Lymph # (Auto) 1.1 L Garvin # (Auto) 1.8 H Eos # (Auto) 0.0 Baso # (Auto) 0.2 Abs Immat Gran (auto) 0.28 H Absolute Neuts (auto) 18.9 H Absolute Nucleated RBC 0.000 Nucleated RBC % (auto) 0.0 Smear Tech's Comments VERIFIED PT INR APTT D-Dimer High Sensitivty VBG pH VBG pCO2 VBG pO2 VBG HCO3 VBG O2 Saturation VBG Base Excess Anion Gap 21 H Estim Creat Clear Calc 29.1 Estimated GFR 33 Random Glucose 308 H Lactic Acid 1.5 Calcium 9.1 Magnesium 2.0 Total Bilirubin 0.9 AST 23 ALT 15 Alkaline Phosphatase 91 B-Natriuretic Peptide 1919 H Total Protein 6.0 L Albumin 2.6 L Urine Color Urine Appearance Urine pH Ur Specific [place] Urine Protein Urine Glucose (UA) Urine Ketones Urine Blood Urine Nitrite Ur Leukocyte Esterase Urine RBC Urine WBC Ur Squamous Epith Cells Urine Bacteria Hyaline Casts Influenza Type A (PCR) NEGATIVE Influenza Type B (PCR) NEGATIVE RSV RNA Qual (PCR) NEGATIVE SARS-CoV-2 RNA (RT-PCR) POSITIVE A 03/12/23 03/12/23 03/12/23 23:36 23:43 23:43 MCV MCH MCHC RDW Plt Count MPV Immature Gran % (Auto) Neut % (Auto) Lymph % (Auto) Garvin % (Auto) Eos % (Auto) Baso % (Auto) Lymph # (Auto) Garvin # (Auto) Eos # (Auto) Baso # (Auto) Abs Immat Gran (auto) Absolute Neuts (auto) Absolute Nucleated RBC Nucleated RBC % (auto) Smear Tech's Comments PT 13.5 H INR 1.1 APTT 25.8 L D-Dimer High Sensitivty 2060 Cancelled VBG pH VBG pCO2 VBG pO2 VBG HCO3 VBG O2 Saturation VBG Base Excess Anion Gap Estim Creat Clear Calc Estimated GFR Random Glucose Lactic Acid Calcium Magnesium Total Bilirubin AST ALT Alkaline Phosphatase B-Natriuretic Peptide Total Protein Albumin Urine Color Dark Yellow Urine Appearance Turbid Urine pH 5.5 Ur Specific [place] 1.015 Urine Protein 100 (2+) H Urine Glucose (UA) Negative Urine Ketones Trace Urine Blood Large (3+) H Urine Nitrite Negative Ur Leukocyte Esterase Large (3+) H Urine RBC >20 H Urine WBC >50 H Ur Squamous Epith Cells 6-10 Urine Bacteria 4+ Hyaline Casts 6-10 Influenza Type A (PCR) Influenza Type B (PCR) RSV RNA Qual (PCR) SARS-CoV-2 RNA (RT-PCR) 03/12/23 23:48 MCV MCH MCHC RDW Plt Count MPV Immature Gran % (Auto) Neut % (Auto) Lymph % (Auto) Garvin % (Auto) Eos % (Auto) Baso % (Auto) Lymph # (Auto) Garvin # (Auto) Eos # (Auto) Baso # (Auto) Abs Immat Gran (auto) Absolute Neuts (auto) Absolute Nucleated RBC Nucleated RBC % (auto) Smear Tech's Comments PT INR APTT D-Dimer High Sensitivty VBG pH 7.46 H VBG pCO2 25 VBG pO2 62 VBG HCO3 18 L VBG O2 Saturation 87.0 VBG Base Excess -4.1 Anion Gap Estim Creat Clear Calc Estimated GFR Random Glucose Lactic Acid Calcium Magnesium Total Bilirubin AST ALT Alkaline Phosphatase B-Natriuretic Peptide Total Protein Albumin Urine Color Urine Appearance Urine pH Ur Specific [place] Urine Protein Urine Glucose (UA) Urine Ketones Urine Blood Urine Nitrite Ur Leukocyte Esterase Urine RBC Urine WBC Ur Squamous Epith Cells Urine Bacteria Hyaline Casts Influenza Type A (PCR) Influenza Type B (PCR) RSV RNA Qual (PCR) SARS-CoV-2 RNA (RT-PCR) Imaging Radiologist's Impressions: Impressions Chest X-Ray 03/12/23 23:55 IMPRESSION: Cardiomegaly with mild pulmonary vascular congestion and possible tiny pleural effusions. Chest CTA 03/13/23 00:48 IMPRESSION: 1. Limited assessment due to extensive respiratory motion artifact. However, there do appear to be filling defects in the right lower lobe pulmonary artery and possibly in a left lower lobe segmental vessel, suspicious for pulmonary emboli. 2. Small right and trace left pleural effusions. 3. Cardiomegaly. VTE: positive. This critical result was discussed with Dr. Tellez on 03/13/2023 1:23 AM, and it was ascertained that the content and urgency of the report was understood at the time of direct communication. Assessment and Plan (1) Acute UTI: Status: Acute (2) Acute hypoxic respiratory failure: Status: Acute (3) Pulmonary embolism: Status: Acute (4) COVID-19: Status: Acute Plan This is a 72-year-old female with pertinent history of CVA with residual right- sided weakness, paroxysmal atrial fibrillation not on anticoagulation, ruw-qlsmnef-yhcxgnjvy diabetes mellitus, essential hypertension, mixed hyperlipidemia who was sent to the emergency department for evaluation of dyspnea and hypoxemia. #. Acute hypoxemic respiratory failure secondary to acute submassive right- sided PE and COVID-19 infection. Will admit patient with supplemental oxygen. Was initiated on IV heparin in the ER. Also initiating IV Decadron. Monitor oxygen saturation and wean as tolerated. Maintain oxygen saturation greater than 90%. Obtaining echocardiogram #. Sepsis due to acute UTI: Resuscitated with IV crystalloids. Initiating empiric IV Rocephin. Follow urine culture and blood culture. Lactic acid obtained #. Acute metabolic encephalopathy in the setting of above #. AFib with RVR. Was initiated on IV diltiazem in the ER which was weaned. Consulting Cardiology and obtaining echo. On IV heparin as above #. Acute kidney injury stage I: Monitor creatinine and urine output. Avoid nephrotoxins. #. Hyperkalemia due to JOSEPH: Given temporizing measures in the ER. Initiating Lokelma #. Xjt-xhihpza-exiupqgql diabetes glycemia: Initiating Accu-Cheks with sliding scale insulin every 6 hours #. Essential hypertension: Hold antihypertensives in the setting of sepsis #. History of CVA with residual right-sided weakness: On dual antiplatelet therapy and high-intensity statin Med rec pending DNR/DNI Admit as inpatient and will require two night minimum hospital stay for supplemental oxygen, IV antibiotics and IV heparin Time Spent With Patient Time: Total time managing care of this patient today ____ minutes. Quality Stroke Does the patient have a stroke diagnosis?: No VTE Prior VTE?: No VTE Risk Level:: Medical - moderate - high VTE Device Contraindication: Treatment Not Indicated VTE Drug Contraindication: N/A - Med Ordered
[2023-03-13] MEDS: Heparin Sodium,Porcine 5,000 UNIT/ML VIAL 3700 UNIT IVPUSH (01:39)
[2023-03-13 01:49] LABS: Anion Gap 20 (12-20); Blood Urea Nitrogen 34 mg/dL (9-16); Carbon Dioxide 18 mmol/L (22-29); Chloride 98 mmol/L (96-108); Creatinine Clr Calc Pharmacy 28.3; Estimated Glomerular Filt Rate 32; Glucose Random 293 mg/dL (60-115); Potassium 5.9 mmol/L (3.3-5.1); Sodium 130 mmol/L (135-145)
[2023-03-13] MEDS: dilTIAZem HCL 125 MG in 0.9 % Sodium Chloride 100 ML 10 MG IVCONT (01:59)
--- NOTE | 2023-03-13 02:02 | PC.NURSE ---
cartizem drip started at this time. pt heart rate between 158-165.
--- NOTE | 2023-03-13 02:21 | PC.NURSE ---
delay in heparin drip per provider verbal order. heparin bolus given per provider order/jul.
[2023-03-13] MEDS: dexAMETHasone sod phosphate 4 MG/ML VIAL 6 MG IVPUSH ×2 (02:29→09:17)
[2023-03-13] MEDS: Insulin Regular, Human 100 UNIT/ML 3 ML VIAL IVPUSH (02:32)
[2023-03-13] MEDS: Metoprolol Tartrate 5 MG/5 ML VIAL IVPUSH (02:55)
--- NOTE | 2023-03-13 03:01 | PC.NURSE ---
at bedside placing central line for pt. central line placed in pt right neck.
[2023-03-13 03:15] LABS: PTT Heparin Drip 145.7 SEC (53-77.9)
--- NOTE | 2023-03-13 03:15 | PC.NURSE ---
per provider Anwer, pause cartizem drip d/t pt heart rate between 90-105.
--- NOTE | 2023-03-13 03:20 | PC.NURSE ---
at bedside discussing pt care.
--- NOTE | 2023-03-13 03:22 | PC.NURSE ---
Called Pharmacy spoke to regarding heparin drip rate due to false elevate Ptt , lab was drawn after Heparin bolus was given. Per start rate at weight base redraw Ptt in 6 hours from false bolus results. Notified RN Pema and Provider Dr. Escamilla. Will continue to monitor.
[2023-03-13] MEDS: Heparin Sodium,Porcine/1/2NS 25,000 UNIT/250 ML IV.SOLN 8.69 UNIT IVCONT (03:38)
--- NOTE | 2023-03-13 03:38 | PC.NURSE ---
heparin drip started at pt kg/hr in pt central line.
[2023-03-13 04:07] LABS: Lactic Acid 2.3 mmol/L (0.5-2.0)
[2023-03-13 04:15] LABS: Troponin-I High Sensitivity 53.1 ng/L (<3.5-17.0)
--- NOTE | 2023-03-13 04:18 | PC.NURSE ---
critical lab received. troponin 53.1, aware.
[2023-03-13] MEDS: dilTIAZem HCL 50 MG/10 ML VIAL 15 MG IVPUSH (05:08)
--- NOTE | 2023-03-13 05:13 | PC.NURSE ---
pt in rapid heart rate of 148, placed order for 15mg cartizem, pushed at 0508.
[2023-03-13 05:23] LABS: MANUAL DIFF FLAG NO
[2023-03-13 05:24] LABS: Basophils Percent Auto 0.3 % (0-2); Eosinophils Percent Auto 0.1 % (0-4); Hemoglobin 10.1 g/dl (12.0-16.0); Imm Gran Abs Auto 0.17 X10*3/uL (0.00-0.03); Imm Gran Pct Auto 1.1 % (0.0-0.4); Lymphocytes Percent Auto 6.6 % (20-40); Mean Corpuscular HGB Conc 31.6 g/dl (31.0-35.0); Mean Corpuscular Hemoglobin 27.5 pg (27.0-33.0); Mean Corpuscular Volume 87.2 fL (80.0-98.0); Mean Platelet Volume 9.8 fL (9.4-12.3); Monocytes Absolute Auto 0.9 X10*3/uL (0.1-1.2); Monocytes Percent Auto 5.6 % (2-11); Neutrophils Absolute Auto 13.2 x10*3/uL (2.0-8.3); Neutrophils Percent Auto 86.3 % (45-73); Platelet Count 361 X10*3/uL (160-400); Red Blood Count 3.67 X10*6/uL (4.20-5.50); Red Cell Distribution Width 13.5 % (11.0-16.0); White Blood Count 15.2 X10*3/uL (4.8-10.8)
[2023-03-13 05:47] LABS: Reflex Lactate? Lactic Acid Added
[2023-03-13 05:49] LABS: Anion Gap 16 (12-20); Blood Urea Nitrogen 36 mg/dL (9-16); Calcium 8.8 mg/dL (8.4-10.2); Carbon Dioxide 19 mmol/L (22-29); Chloride 101 mmol/L (96-108); Creatinine Clr Calc Pharmacy 30.6; Estimated Glomerular Filt Rate 35; Glucose Random 275 mg/dL (60-115); Potassium 5.1 mmol/L (3.3-5.1); Sodium 131 mmol/L (135-145)
[2023-03-13 06:09] LABS: Glucose, Whole Blood 271 mg/dL (60-115)
[2023-03-13 06:16] LABS: ~Lactic Acid-LAB USE ONLY 1.4 mmol/L (0.5-2.0)
[2023-03-13] MEDS: Insulin Lispro 100 UNIT/ML 3 ML VIAL SUBCUT ×3 (06:17→18:26)
--- NOTE | 2023-03-13 07:00 | CA_ITS ---
Transthoracic Echocardiogram Patient (Last, First, Middle): Brenna Driver, Gender: Female Date of : 1950 Age: 72 Procedure Date: 03/13/2023 Procedure Type: Transthoracic Echocardiogram Location: ER Height: 165.1 cm Weight: 61.69 kg BSA: 1.68 m2 Heart Rate: bpm BP: 87 / 60 mmHg Child Welfare Social Worker: Referring MD: Roberto Escamilla MD [place] Machine Operator Helper: Eric Polk MD Symptoms: Pulmonary Embolism Study Quality: Adequate ECG Rhythm: Atrial Fibrillation Conclusions: - 1. Severely reduced LV ejection fraction of 25-30% with mild LVH with regional wall motion abnormality consistent with underlying coronary artery disease 2. Mildly dilated left atrium 3. Mild mitral regurgitation 4. Normal RV systolic pressure 5. Trivial pericardial effusion Findings Left Ventricle Normal left ventricular cavity size. There is mildly increased left ventricular wall thickness. The left ventricular systolic function is severely decreased. The visually estimated ejection fraction is between 25 30%. Diastolic function is indeterminate on the basis of available data. Wall Motion Rest Echo Findings The anterior wall, anteroseptal wall, entire lateral wall, and apex segment are hypokinetic. The inferoseptal wall and inferior wall are akinetic. Right Ventricle Mildly increased right ventricular cavity size. There is borderline right ventricular systolic function. Atria The left atrium is mildly dilated. There is no evidence of interatrial shunt. The right atrium is likely dilated. Aortic Valve There is mild calcification of the aortic valve. There is mild thickening of the aortic valve. There is no aortic valve stenosis. There is no aortic valve regurgitation. Mitral Valve There is mild anterior mitral leaflet thickening. There is mild mitral valve regurgitation. There is no mitral valve stenosis. Pulmonic Valve The pulmonic valve is likely normal. There is trace pulmonic valve regurgitation. Tricuspid Valve Normal tricuspid valve structure. There is mild tricuspid valve regurgitation. The right ventricular systolic pressure is normal. The right ventricular systolic pressure is 24 mmHg. Normal right atrial pressure. There is no evidence of pulmonary hypertension. Great Vessels All visible segments of the aorta are normal in size. The pulmonary artery was not well visualized. Venous The inferior vena cava is normal in size and collapses greater than 50% with inspiration. Pericardium/Pleural There is a trivial pericardial effusion. There is a left sided pleural effusion. Prior Study Comparison No prior study available for comparison. Measurements 2D Linear Measurements IVSd: 1.24 0.6-0.9/0.6-1.0 cm LVIDd: 3.36 3.9-5.3/4.2-5.9 cm LVIDd Index: 2.00 2.4-3.2/2.2-3.1 cm/m2 LVIDs: 3.07 2.0-3.6 cm LVPWd: 1.21 0.7-1.1 cm Ao Root: 2.90 2.1-3.5 cm LA Diam: 3.90 2.7-3.8/3.0-4.0 cm LAIDs Index: 2.32 1.5-2.3 cm/m2 LV Mass: 164.52 67-162/88-224 g LV Mass Index: 97.93 43-95/49-115 g/m2 LVOT Diam: 2.10 3.0+(-)1.3 cm 2D Systolic Function EF 4C: 29.00 >55% EF 2C: 13.70 >55% EF BiP: 23.60 >55% Mitral Valve MV Pk E: 0.99 MV Decel Time: 195.00 E'Lateral: 12.00 E'Medial: 5.11 E/E' Med: 19.30 E/E' Lat: 8.20 Aortic Valve AoV Pk Amadeo: 1.12 AoV Mn Amadeo: 0.75 AoV VTI: 0.22 AoV Pk Grad: 5.00 Aov Mn Grad: 3.00 IKE Cont.VTI: 2.29 LVOT LVOT Pk Amadeo: 0.71 LVOT Mn Amadeo: 0.44 LVOT VTI: 0.14 LVOT Pk Grad: 2.00 LVOT Mn Grad: 1.00 LVOT Diam: 2.10 LVOT Area: 3.46 Diastolic Function MV Pk E: 0.99 E'Medial: 5.11 E/E' Med: 19.30 E' Laterial: 12.00 E/E' Lat: 8.20 Right Ventricle TAPSE (mm): 17.00 TVS' Amadeo: 8.00 Tricuspid Valve TR Pk Amadeo: 2.31 TR Pk Grad: 21.00 RA Press: 3.00 RVSP: 24.00 Great Vessels Aorta Ao Root-2D: 2.90 2.0-3.7 cm Ao Asc: 3.20 2.1-3.4 cm Pulmonary Valve PV Pk Amadeo: 0.87 Peak PV Grad: 3.00 Updated in Other Vendor System with Status of Final Eric Polk MD electronically signed on 03/13/2023 4:36:46 PM with status of Final
[2023-03-13 07:43] LABS: Glucose, Whole Blood 281 mg/dL (60-115)
[2023-03-13] MEDS: 0.9 % Sodium Chloride Flush 3 ML SYRINGE IVFLUSH ×3 (07:50→20:54)
--- NOTE | 2023-03-13 08:21 | PHA.MEDREC ---
Pharmacy Consult ? Medication Reconciliation Pharmacy has completed the medication reconciliation. List from [facility]
--- NOTE | 2023-03-13 08:35 | PC.NURSE ---
hr 130-150 on 10mg /h cardizem, bp trended down to 91/70, cardizem decreased to 5mg/[address] mlapah and bp and hr stabilized as that change was made. pt asymptomatic, alert, nad
--- NOTE | 2023-03-13 08:43 | P.PNIM_ITS ---
Subjective Subjective Date of Service: 03/13/23 Interval History: Seen eval, has acute hypoxic resp failure d/t covid and PE, on high flow but appear comfortable. Physical Exam 2 Vital Signs: Vital Signs: Last Vital Signs Temp 98.2 F 03/13/23 05:14 Pulse 90 03/13/23 08:34 Resp 22 H 03/13/23 08:34 BP 141/69 H 03/13/23 08:34 Pulse Ox 97 03/13/23 08:34 O2 Del Method High Flow Nasal C annula 03/13/23 07:55 O2 Flow Rate 35 03/13/23 08:34 Oxygen Flow Rate 5 03/12/23 22:55 BMI result Body Mass Index 22.8 Const: Other: General: AO X 2, no acute distress Resp: CTA bilateral CVS: S1,S2, iregular iregular GI: +BS, NT, no distention Skin: No rash Neuro: motor grossly intact Psych: appropriate affect Objective Data Active Medications Acetaminophen (Acetaminophen 325 Mg Tablet) 650 mg PO Q6H PRN PRN Reason: Pain, Mild (Pain Scale 1-3) Acetaminophen (Acetaminophen Supp 650 Mg Supp.Rect) 650 mg NH Q6H PRN PRN Reason: Pain, Mild (Pain Scale 1-3) Dexamethasone Sodium Phosphate (Dexamethasone Sod Phosphate 4 Mg/Ml Vial) 6 mg IVPUSH DAILY [facility] Dextrose (Dextrose 50 % 25 Gm/50 Ml Syringe) 25 gm IVPUSH Q15M PRN; Protocol PRN Reason: per Hypoglycemia Standing Ord. Glucose (Glucose Gel 15 Gm Gel..Gram.) 15 gm PO Q15M PRN; Protocol PRN Reason: per Hypoglycemia Standing Ord. Heparin Sodium (Porcine) (Heparin Sodium,Porcine 5,000 Unit/Ml Vial) 2,500 unit 40 unit/kg (2500 unit) IVPUSH PROTOCOL BOLUS PRN; Protocol PRN Reason: 40 unit/kg - Heparin Protocol Heparin Sodium (Porcine) (Heparin Sodium,Porcine 5,000 Unit/Ml Vial) 5,000 unit 80 unit/kg (5000 unit) IVPUSH PROTOCOL BOLUS PRN; Protocol PRN Reason: 80 unit/kg - Heparin Protocol Diltiazem HCl 125 mg/ Sodium (Chloride) 125 mls @ 0 mls/hr IVCONT .Q0M STONE; Protocol Last Titration: 03/13/23 08:35 Dose: 5 mg/hr, 5 mls/hr Documented By: GRAHAM Heparin Sodium/Sodium Chloride (Heparin Sodium,Porcine/1/2ns) 25,000 unit in 250 mls @ 0 mls/hr IVCONT .Q0M [facility]; Protocol Last Admin: 03/13/23 03:38 Dose: 14 units/kg/hr, 8.69 mls/hr Documented By: JANIS Co-signed By: RESHMA Ceftriaxone Sodium 1 gm/ (Sodium Chloride) 50 mls @ 100 mls/hr IV Q24H [facility] Insulin Human Lispro (Insulin Lispro 100 Unit/Ml 3 Ml Vial) 0 unit SUBCUT Q6H [facility]; Protocol Last Admin: 03/13/23 06:17 Dose: 6 unit Documented By: JANIS Comments: per , given the okay Melatonin (Melatonin 3 Mg Tablet) 6 mg PO BEDTIME PRN PRN Reason: Insomnia Ondansetron HCl (Ondansetron Hcl 4 Mg/2 Ml Vial) 4 mg IVPUSH Q8H PRN PRN Reason: Nausea and Vomiting Sodium Chloride (0.9 % Sodium Chloride Flush 3 Ml Syringe) 3 ml IVFLUSH QSHIFT [facility] Last Admin: 03/13/23 07:50 Dose: 3 ml Documented By: GRAHAM Sodium Zirconium Cyclosilicate (Sodium Zirconium Cyclosilicate 10 Gm Powd.Pack) 10 gm PO DAILY [facility] Labs 03/13/23 05:03 03/13/23 05:03 Labs: Laboratory Results - last 24 hr 03/12/23 03/12/23 03/12/23 00:00 22:45 22:52 MCV 86.7 MCH 28.2 MCHC 32.5 RDW 13.5 Plt Count 482 H D MPV 9.8 Immature Gran % (Auto) 1.3 H Neut % (Auto) 84.7 H Lymph % (Auto) 4.9 L [place] % (Auto) 8.3 Eos % (Auto) 0.1 Baso % (Auto) 0.7 Lymph # (Auto) 1.1 L [place] # (Auto) 1.8 H Eos # (Auto) 0.0 Baso # (Auto) 0.2 Abs Immat Gran (auto) 0.28 H Absolute Neuts (auto) 18.9 H Absolute Nucleated RBC 0.000 Nucleated RBC % (auto) 0.0 Smear Tech's Comments VERIFIED Hold Purple Top PT INR APTT aPTT Heparin Protocol D-Dimer High Sensitivty VBG pH VBG pCO2 VBG pO2 VBG HCO3 VBG O2 Saturation VBG Base Excess Anion Gap 21 H Estim Creat Clear Calc 29.1 Estimated GFR 33 POC Glucose Random Glucose 308 H Lactic Acid 1.5 Lactic Acid F/U @ 2Hr Calcium 9.1 Magnesium 2.0 Total Bilirubin 0.9 AST 23 ALT 15 Alkaline Phosphatase 91 B-Natriuretic Peptide 1919 H Total Protein 6.0 L Albumin 2.6 L Urine Color Urine Appearance Urine pH Ur Specific [place] Urine Protein Urine Glucose (UA) Urine Ketones Urine Blood Urine Nitrite Ur Leukocyte Esterase Urine RBC Urine WBC Ur Squamous Epith Cells Urine Bacteria Hyaline Casts Influenza Type A (PCR) NEGATIVE Influenza Type B (PCR) NEGATIVE RSV RNA Qual (PCR) NEGATIVE SARS-CoV-2 RNA (RT-PCR) POSITIVE A 03/12/23 03/12/23 03/12/23 23:36 23:43 23:43 MCV MCH MCHC RDW Plt Count MPV Immature Gran % (Auto) Neut % (Auto) Lymph % (Auto) [place] % (Auto) Eos % (Auto) Baso % (Auto) Lymph # (Auto) [place]rie # (Auto) Eos # (Auto) Baso # (Auto) Abs Immat Gran (auto) Absolute Neuts (auto) Absolute Nucleated RBC Nucleated RBC % (auto) Smear Tech's Comments Hold Purple Top PT 13.5 H INR 1.1 APTT 25.8 L aPTT Heparin Protocol D-Dimer High Sensitivty 2060 Cancelled VBG pH VBG pCO2 VBG pO2 VBG HCO3 VBG O2 Saturation VBG Base Excess Anion Gap Estim Creat Clear Calc Estimated GFR POC Glucose Random Glucose Lactic Acid Lactic Acid F/U @ 2Hr Calcium Magnesium Total Bilirubin AST ALT Alkaline Phosphatase B-Natriuretic Peptide Total Protein Albumin Urine Color Dark Yellow Urine Appearance Turbid Urine pH 5.5 Ur Specific [place] 1.015 Urine Protein 100 (2+) H Urine Glucose (UA) Negative Urine Ketones Trace Urine Blood Large (3+) H Urine Nitrite Negative Ur Leukocyte Esterase Large (3+) H Urine RBC >20 H Urine WBC >50 H Ur Squamous Epith Cells 6-10 Urine Bacteria 4+ Hyaline Casts 6-10 Influenza Type A (PCR) Influenza Type B (PCR) RSV RNA Qual (PCR) SARS-CoV-2 RNA (RT-PCR) 03/12/23 03/13/23 03/13/23 23:48 01:11 02:11 MCV MCH MCHC RDW Plt Count MPV Immature Gran % (Auto) Neut % (Auto) Lymph % (Auto) [place] % (Auto) Eos % (Auto) Baso % (Auto) Lymph # (Auto) [place] # (Auto) Eos # (Auto) Baso # (Auto) Abs Immat Gran (auto) Absolute Neuts (auto) Absolute Nucleated RBC Nucleated RBC % (auto) Smear Tech's Comments Hold Purple Top SEE NOTE PT INR APTT aPTT Heparin Protocol 145.7 H* D-Dimer High Sensitivty VBG pH 7.46 H VBG pCO2 25 VBG pO2 62 VBG HCO3 18 L VBG O2 Saturation 87.0 VBG Base Excess -4.1 Anion Gap 20 Estim Creat Clear Calc 28.3 Estimated GFR 32 POC Glucose Random Glucose 293 H Lactic Acid Lactic Acid F/U @ 2Hr Calcium 9.0 Magnesium Total Bilirubin AST ALT Alkaline Phosphatase B-Natriuretic Peptide Total Protein Albumin Urine Color Urine Appearance Urine pH Ur Specific [place] Urine Protein Urine Glucose (UA) Urine Ketones Urine Blood Urine Nitrite Ur Leukocyte Esterase Urine RBC Urine WBC Ur Squamous Epith Cells Urine Bacteria Hyaline Casts Influenza Type A (PCR) Influenza Type B (PCR) RSV RNA Qual (PCR) SARS-CoV-2 RNA (RT-PCR) 03/13/23 03/13/23 03/13/23 03:44 05:03 05:56 MCV 87.2 MCH 27.5 MCHC 31.6 RDW 13.5 Plt Count 361 D MPV 9.8 Immature Gran % (Auto) 1.1 H Neut % (Auto) 86.3 H Lymph % (Auto) 6.6 L [place] % (Auto) 5.6 Eos % (Auto) 0.1 Baso % (Auto) 0.3 Lymph # (Auto) 1.0 L [place] # (Auto) 0.9 Eos # (Auto) 0.0 Baso # (Auto) 0.0 Abs Immat Gran (auto) 0.17 H Absolute Neuts (auto) 13.2 H Absolute Nucleated RBC 0.000 Nucleated RBC % (auto) 0.0 Smear Tech's Comments Hold Purple Top PT INR APTT aPTT Heparin Protocol D-Dimer High Sensitivty VBG pH VBG pCO2 VBG pO2 VBG HCO3 VBG O2 Saturation VBG Base Excess Anion Gap 16 Estim Creat Clear Calc 30.6 Estimated GFR 35 POC Glucose Random Glucose 275 H Lactic Acid 2.3 H* Lactic Acid F/U @ 2Hr 1.4 Calcium 8.8 Magnesium Total Bilirubin AST ALT Alkaline Phosphatase B-Natriuretic Peptide Total Protein Albumin Urine Color Urine Appearance Urine pH Ur Specific [place] Urine Protein Urine Glucose (UA) Urine Ketones Urine Blood Urine Nitrite Ur Leukocyte Esterase Urine RBC Urine WBC Ur Squamous Epith Cells Urine Bacteria Hyaline Casts Influenza Type A (PCR) Influenza Type B (PCR) RSV RNA Qual (PCR) SARS-CoV-2 RNA (RT-PCR) 03/13/23 03/13/23 06:06 07:39 MCV MCH MCHC RDW Plt Count MPV Immature Gran % (Auto) Neut % (Auto) Lymph % (Auto) [place] % (Auto) Eos % (Auto) Baso % (Auto) Lymph # (Auto) [place] # (Auto) Eos # (Auto) Baso # (Auto) Abs Immat Gran (auto) Absolute Neuts (auto) Absolute Nucleated RBC Nucleated RBC % (auto) Smear Tech's Comments Hold Purple Top PT INR APTT aPTT Heparin Protocol D-Dimer High Sensitivty VBG pH VBG pCO2 VBG pO2 VBG HCO3 VBG O2 Saturation VBG Base Excess Anion Gap Estim Creat Clear Calc Estimated GFR POC Glucose 271 H 281 H Random Glucose Lactic Acid Lactic Acid F/U @ 2Hr Calcium Magnesium Total Bilirubin AST ALT Alkaline Phosphatase B-Natriuretic Peptide Total Protein Albumin Urine Color Urine Appearance Urine pH Ur Specific [place] Urine Protein Urine Glucose (UA) Urine Ketones Urine Blood Urine Nitrite Ur Leukocyte Esterase Urine RBC Urine WBC Ur Squamous Epith Cells Urine Bacteria Hyaline Casts Influenza Type A (PCR) Influenza Type B (PCR) RSV RNA Qual (PCR) SARS-CoV-2 RNA (RT-PCR) Assessment and Plan (1) Acute hypoxic respiratory failure: Status: Acute (2) Pulmonary embolism: Status: Acute (3) COVID-19: Status: Acute Plan 72-year-old female with 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 Acute hypoxemic respiratory failure secondary to acute submassive right-sided PE and COVID-19 infection, continue high flow O2 to maintain sat between 90 to 94% Covid 19 with hypoxia, continue Decadrone, add Remdesevir PE--On IV heparin, get an echo Sepsis due to acute UTI: Culture pending, continue Rocephin 03/13 Acute metabolic encephalopathy in the setting of above, treat underlying causes AFib with RV, IV cardizem, echo and cardiology eval Acute kidney injury stage I: Monitor creatinine and urine output. IVF Hyperkalemia due to JOSEPH: resolved after lokelma [id number] diabetes glycemia: BS check , SSI Essential hypertension: Hold antihypertensives in the setting of sepsis and low Bap History of CVA with residual right-sided weakness: On dual antiplatelet therapy and high-intensity statin DNR/DNI need for inpatient: management with covid and PE with hypoxia and on IV heparin Time Spent With Patient Time: Total time managing care of this patient today ____ minutes. Quality Stroke Does the patient have a stroke diagnosis?: No VTE Prior VTE?: No VTE Risk Level:: Medical - moderate - high VTE Device Contraindication: Treatment Not Indicated VTE Drug Contraindication: N/A - Med Ordered
--- NOTE | 2023-03-13 09:09 | PC.NURSE ---
cardizem changed to 7.5mg/h per Dr Polk
[2023-03-13] MEDS: Sodium Bicarbonate 650 MG TABLET 1300 MG PO (09:18)
[2023-03-13] MEDS: Aspirin Enteric Coated 81 MG TABLET.DR PO (09:18)
[2023-03-13] MEDS: Digoxin 0.5 MG/2 ML AMPUL 0.125 MG IVPUSH ×3 (09:18→20:52)
[2023-03-13] MEDS: carvediloL 12.5 MG TABLET PO ×2 (09:18→20:53)
--- NOTE | 2023-03-13 09:28 | PC.NURSE ---
this RN resumed care of pt a this time. medication administered per provider order. pharmacy called/notified of missing med from pyxis - will administer when able. labs drawn off of central line/given to phlebotomy. line flushed w/ ns. pt c/o no pain at this time. pt resting at 97% via CPAP 34.8%. pt able to speak in full, clear sentences w/o difficulty. no sob/wob noted at this time. pt sinus tachy on monitoring and evaluation advisor (130-150bpm). otherwise vss. crackles noted throughout lower lungs bilaterally upon auscultation. heparin drip at 8.69 ml/hr per protocol/admitting provider. respiration even and unlabored at this time. call ybarra placed within reach.
[2023-03-13 09:32] LABS: PTT Heparin Drip 59.2 SEC (53-77.9)
--- NOTE | 2023-03-13 09:38 | MHC.CM.PN ---
PT ADMITTED, COVID-19 + CM CALLED PTS SON/ALT HCP, AKIN ROGERS [phone] HE REPORTS PT INITIALLY WENT TO [facility] AND THEN TRANSITIONED TO [facility] FOR STR HE SAYS SHE WAS EXPECTED TO DC FROM [facility] IN MID-MARCH HE REPORTS PRIOR TO REHAB, PT WAS LIVING ALONE AND FULLY INDEPENDENT SHE HAD NO DME AND NO SERVICES PTS PCP IS DR SENTHIL BIGGS IN [place] COPY OF HCP OBTAINED AND SCANNED INTO [employer] IMM DELIVERED, COPY WILL BE EMAILED TO JOVANNI AT [email or web address] DCP: PT WILL NEED A PT EVAL TO RETURN TO [facility] TO CONTINUE STR BLS TRANSPORT HCP: NELLY ROGERS [phone] AKIN ROGERS: [phone]
--- NOTE | 2023-03-13 10:30 | PC.NURSE ---
APTT results came back at 59.2 - per [facility] heparin protocol - no titration/dose change needed at this point. next APTT isc scheduled to be drawn in 6 hours from this time.
--- NOTE | 2023-03-13 10:54 | P.CONCA_ITS ---
History of Present Illness History of Present Illness Date of Service: 03/13/23 [facility]ing [facility] Consult reason: atrial fibrillation Chief complaint: Dyspnea Narrative: I was consulted to see Brenna in cardiology consultation today for atrial flutter/fibrillation with rapid ventricular response. 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 Patient also noted to be in rapid atrial fibrillation/flutter with underlying left bundle-branch block. Patient also from [facility] note has a prior history of cardiomyopathy LVEF of about 40-45%. On presently emergency room she was noted to be markedly hypoxemic requiring high level of oxygen and subsequently diagnosed with COVID and subsequent CTA shows pulmonary embolism in the right lung. Patient has been started on IV heparin. Was also started on IV Cardizem drip although blood pressure was soft and her medications have been withheld multiple times leading to rapid heart rate very quickly. Patient currently denying any palpitations or chest pain. Says shortness of breath is better. No lightheadedness, syncope. No clear history of orthopnea, PND. There is also concern for UTI Review of Systems 2 Constitutional: Constitutional: Reports lethargy and Reports weakness Eyes: Eyes: Reports no additional eye complaints Cardiovascular: Cardiovascular: Denies chest pain, Denies rapid heart rate, Denies leg edema, Denies lightheadedness, Denies Loss of Consciousness, Denies palpitations and Reports dyspnea Respiratory: Respiratory: Reports no additional respiratory complaints and Reports dyspnea Gastrointestinal: Gastrointestinal: Reports no additional gastrointestinal complaints Genitourinary: Genitourinary: Reports no additional female genitourinary complaints Neurologic: Reports weakness Endocrine: Endocrine: Denies palpitations PMFSH Past Medical History Medical History Essential thrombocythemia Rheumatic valvular disease Hyperlipemia HTN (hypertension) Atrial fibrillation CKD (chronic kidney disease) stage 3, GFR 30-59 ml/min Diabetes mellitus Aphasia Chronic ischemic left MCA stroke Social History Social History Patient Tobacco Use Status: Never used Tobacco Smoked in Last 30 Days: No Use of substances other than those prescribed or required for medical reasons: No Advance Directives: Yes Advance Directives on File: Yes Advance Directives Date on File: 03/13/23 Nutrition Risks: No Nutritional Risk service: No Meds Allergies Allergy/AdvReac Type Severity Reaction Status Date / Time lisinopril Allergy Unknown Unknown Verified 03/12/23 23:14 atorvastatin AdvReac Unknown Unknown Verified 03/12/23 23:14 metformin AdvReac Unknown Unknown Verified 03/12/23 23:14 spironolactone AdvReac Unknown Unknown Verified 03/12/23 23:14 Active Medications: Current Medications Acetaminophen (Acetaminophen 325 Mg Tablet) 650 mg PO Q6H PRN PRN Reason: Pain, Mild (Pain Scale 1-3) Acetaminophen (Acetaminophen Supp 650 Mg Supp.Rect) 650 mg WI Q6H PRN PRN Reason: Pain, Mild (Pain Scale 1-3) Aspirin (Aspirin Enteric Coated 81 Mg Tablet.Dr) 81 mg PO DAILY [facility] Last Admin: 03/13/23 09:18 Dose: 81 mg Carvedilol (Carvedilol 12.5 Mg Tablet) 12.5 mg PO BID [facility]; Protocol Last Admin: 03/13/23 09:18 Dose: 12.5 mg Dexamethasone Sodium Phosphate (Dexamethasone Sod Phosphate 4 Mg/Ml Vial) 6 mg IVPUSH DAILY [facility] Last Admin: 03/13/23 09:17 Dose: 6 mg Dextrose (Dextrose 50 % 25 Gm/50 Ml Syringe) 25 gm IVPUSH Q15M PRN; Protocol PRN Reason: per Hypoglycemia Standing Ord. Digoxin (Digoxin 0.5 Mg/2 Ml Ampul) 0.125 mg IVPUSH Q6H [facility] Stop: 03/13/23 21:01 Last Admin: 03/13/23 09:18 Dose: 0.125 mg Glipizide (Glipizide 10 Mg Tablet) 10 mg PO DAILY [facility] Glucose (Glucose Gel 15 Gm Gel..Gram.) 15 gm PO Q15M PRN; Protocol PRN Reason: per Hypoglycemia Standing Ord. Heparin Sodium (Porcine) (Heparin Sodium,Porcine 5,000 Unit/Ml Vial) 2,500 unit 40 unit/kg (2500 unit) IVPUSH PROTOCOL BOLUS PRN; Protocol PRN Reason: 40 unit/kg - Heparin Protocol Heparin Sodium (Porcine) (Heparin Sodium,Porcine 5,000 Unit/Ml Vial) 5,000 unit 80 unit/kg (5000 unit) IVPUSH PROTOCOL BOLUS PRN; Protocol PRN Reason: 80 unit/kg - Heparin Protocol Diltiazem HCl 125 mg/ Sodium (Chloride) 125 mls @ 0 mls/hr IVCONT .Q0M [facility]; Protocol Last Titration: 03/13/23 09:09 Dose: 7.5 mg/hr, 7.5 mls/hr Heparin Sodium/Sodium Chloride (Heparin Sodium,Porcine/1/2ns) 25,000 unit in 250 mls @ 0 mls/hr IVCONT .Q0M [facility]; Protocol Last Admin: 03/13/23 03:38 Dose: 14 units/kg/hr, 8.69 mls/hr Ceftriaxone Sodium 1 gm/ (Sodium Chloride) 50 mls @ 100 mls/hr IV Q24H [facility] Remdesivir 200 mg/ Sodium (Chloride) 210 mls @ 105 mls/hr IV ONCE ONE Stop: 03/13/23 13:59 Remdesivir 100 mg/ Sodium (Chloride) 230 mls @ 115 mls/hr IV Q24H [facility] Stop: 03/15/23 13:59 Insulin Human Lispro (Insulin Lispro 100 Unit/Ml 3 Ml Vial) 0 unit SUBCUT Q6H [facility]; Protocol Last Admin: 03/13/23 06:17 Dose: 6 unit Melatonin (Melatonin 3 Mg Tablet) 6 mg PO BEDTIME PRN PRN Reason: Insomnia Melatonin (Melatonin 3 Mg Tablet) 3 mg PO BEDTIME PRN PRN Reason: Sleep Ondansetron HCl (Ondansetron Hcl 4 Mg/2 Ml Vial) 4 mg IVPUSH Q8H PRN PRN Reason: Nausea and Vomiting Sodium Bicarbonate (Sodium Bicarbonate 650 Mg Tablet) 1,300 mg PO DAILY [facility] Last Admin: 03/13/23 09:18 Dose: 1,300 mg Sodium Chloride (0.9 % Sodium Chloride Flush 3 Ml Syringe) 3 ml IVFLUSH QSHIFT [facility] Last Admin: 03/13/23 07:50 Dose: 3 ml Sodium Zirconium Cyclosilicate (Sodium Zirconium Cyclosilicate 10 Gm Powd.Pack) 10 gm PO DAILY [facility] Last Admin: 03/13/23 09:19 Dose: 10 gm Home Medications Medication Instructions Recorded Confirmed Last Taken Type amlodipine 10 mg tablet 10 mg PO DAILY 03/13/23 03/13/23 Unknown History aspirin 81 mg tablet,delayed 81 mg PO DAILY 03/13/23 03/13/23 Unknown History release carvedilol 12.5 mg tablet 12.5 mg PO BID 03/13/23 03/13/23 Unknown History clopidogrel 75 mg tablet 75 mg PO DAILY 03/13/23 03/13/23 Unknown History glipizide 10 mg tablet 10 mg PO DAILY 03/13/23 03/13/23 Unknown History insulin glargine 100 unit/mL (3 5 unit subcut DAILY 03/13/23 03/13/23 Unknown History mL) subcutaneous pen (Lantus Solostar U-100 Insulin) insulin lispro 100 unit/mL 4 unit subcut BID@1130,1630 03/13/23 03/13/23 Unknown History subcutaneous solution (Humalog U-100 Insulin) insulin lispro 100 unit/mL 5 unit subcut BEDTIME 03/13/23 03/13/23 Unknown History subcutaneous solution (Humalog U-100 Insulin) insulin lispro 100 unit/mL 10 unit subcut QAM 03/13/23 03/13/23 Unknown History subcutaneous solution (Humalog U-100 Insulin) melatonin 3 mg tablet 3 mg PO BEDTIME PRN Sleep 03/13/23 03/13/23 Unknown History potassium chloride 10 mEq 40 meq PO DAILY 03/13/23 03/13/23 Unknown History capsule,extended release sodium bicarbonate 650 mg tablet 1,300 mg PO DAILY 03/13/23 03/13/23 Unknown History Physical Exam 2 Vital Signs: Vital Signs: Last Vital Signs Temp 98.2 F 03/13/23 05:14 Pulse 137 H 03/13/23 09:16 Resp 22 H 03/13/23 09:16 BP 99/69 03/13/23 09:16 Pulse Ox 95 03/13/23 09:16 O2 Del Method CPAP 03/13/23 09:16 O2 Flow Rate 34.8 03/13/23 09:16 Oxygen Flow Rate 5 03/12/23 22:55 BMI result Body Mass Index 22.8 Const: General: cooperative, alert and awake Nutritional Appearance: thin Orientation/consciousness: patient oriented x3 HEENT: Head: Yes normocephalic and Yes atraumatic Neck: Neck: Yes trachea midline, Yes supple and Yes no JVD Resp: Effort & Inspection: decreased respiratory effort Auscultation: clear to auscultation bilaterally Cardio: Jugular venous distension: no JVD Rate: tachycardic Rhythm: a bnormal rhythm irregularly irregular Heart sounds: S1 normal heart sound present, S2 normal heart sound present, no click, no gallops and no murmurs GI: Auscultation: normal bowel sounds Skin: General skin exam: no rashes or lesions noted Neuro: General: patient oriented x3 Extrem: General: Yes no clubbing, cyanosis or edema Objective Labs and Meds 03/13/23 05:03 03/13/23 05:03 Lab results: Laboratory Results - last 24 hr 03/12/23 03/12/23 03/12/23 00:00 22:45 22:52 WBC 22.2 H RBC 4.29 Hgb 12.1 Hct 37.2 MCV 86.7 MCH 28.2 MCHC 32.5 RDW 13.5 Plt Count 482 H D MPV 9.8 Immature Gran % (Auto) 1.3 H Neut % (Auto) 84.7 H Lymph % (Auto) 4.9 L [place] % (Auto) 8.3 Eos % (Auto) 0.1 Baso % (Auto) 0.7 Lymph # (Auto) 1.1 L [place] # (Auto) 1.8 H Eos # (Auto) 0.0 Baso # (Auto) 0.2 Abs Immat Gran (auto) 0.28 H Absolute Neuts (auto) 18.9 H Absolute Nucleated RBC 0.000 Nucleated RBC % (auto) 0.0 Smear Tech's Comments VERIFIED Hold Purple Top PT INR APTT aPTT Heparin Protocol D-Dimer High Sensitivty VBG pH VBG pCO2 VBG pO2 VBG HCO3 VBG O2 Saturation VBG Base Excess Sodium 129 L Potassium 6.7 H* D Chloride 99 Carbon Dioxide 16 L Anion Gap 21 H BUN 33 H Creatinine 1.55 H Estim Creat Clear Calc 29.1 Estimated GFR 33 POC Glucose Random Glucose 308 H Lactic Acid 1.5 Lactic Acid F/U @ 2Hr Calcium 9.1 Magnesium 2.0 Total Bilirubin 0.9 AST 23 ALT 15 Alkaline Phosphatase 91 Troponin I High Sens B-Natriuretic Peptide 1919 H Total Protein 6.0 L Albumin 2.6 L Urine Color Urine Appearance Urine pH Ur Specific [place] Urine Protein Urine Glucose (UA) Urine Ketones Urine Blood Urine Nitrite Ur Leukocyte Esterase Urine RBC Urine WBC Ur Squamous Epith Cells Urine Bacteria Hyaline Casts Influenza Type A (PCR) NEGATIVE Influenza Type B (PCR) NEGATIVE RSV RNA Qual (PCR) NEGATIVE SARS-CoV-2 RNA (RT-PCR) POSITIVE A 03/12/23 03/12/23 03/12/23 23:36 23:43 23:43 WBC RBC Hgb Hct MCV MCH MCHC RDW Plt Count MPV Immature Gran % (Auto) Neut % (Auto) Lymph % (Auto) [place] % (Auto) Eos % (Auto) Baso % (Auto) Lymph # (Auto) [place] # (Auto) Eos # (Auto) Baso # (Auto) Abs Immat Gran (auto) Absolute Neuts (auto) Absolute Nucleated RBC Nucleated RBC % (auto) Smear Tech's Comments Hold Purple Top PT 13.5 H INR 1.1 APTT 25.8 L aPTT Heparin Protocol D-Dimer High Sensitivty 2060 Cancelled VBG pH VBG pCO2 VBG pO2 VBG HCO3 VBG O2 Saturation VBG Base Excess Sodium Potassium Chloride Carbon Dioxide Anion Gap BUN Creatinine Estim Creat Clear Calc Estimated GFR POC Glucose Random Glucose Lactic Acid Lactic Acid F/U @ 2Hr Calcium Magnesium Total Bilirubin AST ALT Alkaline Phosphatase Troponin I High Sens 50.8 H* B-Natriuretic Peptide Total Protein Albumin Urine Color Dark Yellow Urine Appearance Turbid Urine pH 5.5 Ur Specific [place] 1.015 Urine Protein 100 (2+) H Urine Glucose (UA) Negative Urine Ketones Trace Urine Blood Large (3+) H Urine Nitrite Negative Ur Leukocyte Esterase Large (3+) H Urine RBC >20 H Urine WBC >50 H Ur Squamous Epith Cells 6-10 Urine Bacteria 4+ Hyaline Casts 6-10 Influenza Type A (PCR) Influenza Type B (PCR) RSV RNA Qual (PCR) SARS-CoV-2 RNA (RT-PCR) 03/12/23 03/13/23 03/13/23 23:48 01:11 02:11 WBC RBC Hgb Hct MCV MCH MCHC RDW Plt Count MPV Immature Gran % (Auto) Neut % (Auto) Lymph % (Auto) [place] % (Auto) Eos % (Auto) Baso % (Auto) Lymph # (Auto) [place] # (Auto) Eos # (Auto) Baso # (Auto) Abs Immat Gran (auto) Absolute Neuts (auto) Absolute Nucleated RBC Nucleated RBC % (auto) Smear Tech's Comments Hold Purple Top SEE NOTE PT INR APTT aPTT Heparin Protocol 145.7 H* D-Dimer High Sensitivty VBG pH 7.46 H VBG pCO2 25 VBG pO2 62 VBG HCO3 18 L VBG O2 Saturation 87.0 VBG Base Excess -4.1 Sodium 130 L Potassium 5.9 H Chloride 98 Carbon Dioxide 18 L Anion Gap 20 BUN 34 H Creatinine 1.59 H Estim Creat Clear Calc 28.3 Estimated GFR 32 POC Glucose Random Glucose 293 H Lactic Acid Lactic Acid F/U @ 2Hr Calcium 9.0 Magnesium Total Bilirubin AST ALT Alkaline Phosphatase Troponin I High Sens B-Natriuretic Peptide Total Protein Albumin Urine Color Urine Appearance Urine pH Ur Specific [place] Urine Protein Urine Glucose (UA) Urine Ketones Urine Blood Urine Nitrite Ur Leukocyte Esterase Urine RBC Urine WBC Ur Squamous Epith Cells Urine Bacteria Hyaline Casts Influenza Type A (PCR) Influenza Type B (PCR) RSV RNA Qual (PCR) SARS-CoV-2 RNA (RT-PCR) 03/13/23 03/13/23 03/13/23 03:43 03:44 05:03 WBC 15.2 H RBC 3.67 L Hgb 10.1 L Hct 32.0 L MCV 87.2 MCH 27.5 MCHC 31.6 RDW 13.5 Plt Count 361 D MPV 9.8 Immature Gran % (Auto) 1.1 H Neut % (Auto) 86.3 H Lymph % (Auto) 6.6 L [place] % (Auto) 5.6 Eos % (Auto) 0.1 Baso % (Auto) 0.3 Lymph # (Auto) 1.0 L [place] # (Auto) 0.9 Eos # (Auto) 0.0 Baso # (Auto) 0.0 Abs Immat Gran (auto) 0.17 H Absolute Neuts (auto) 13.2 H Absolute Nucleated RBC 0.000 Nucleated RBC % (auto) 0.0 Smear Tech's Comments Hold Purple Top PT INR APTT aPTT Heparin Protocol D-Dimer High Sensitivty VBG pH VBG pCO2 VBG pO2 VBG HCO3 VBG O2 Saturation VBG Base Excess Sodium 131 L Potassium 5.1 Chloride 101 Carbon Dioxide 19 L Anion Gap 16 BUN 36 H Creatinine 1.47 H Estim Creat Clear Calc 30.6 Estimated GFR 35 POC Glucose Random Glucose 275 H Lactic Acid 2.3 H* Lactic Acid F/U @ 2Hr Calcium 8.8 Magnesium Total Bilirubin AST ALT Alkaline Phosphatase Troponin I High Sens 53.1 H* B-Natriuretic Peptide Total Protein Albumin Urine Color Urine Appearance Urine pH Ur Specific [place] Urine Protein Urine Glucose (UA) Urine Ketones Urine Blood Urine Nitrite Ur Leukocyte Esterase Urine RBC Urine WBC Ur Squamous Epith Cells Urine Bacteria Hyaline Casts Influenza Type A (PCR) Influenza Type B (PCR) RSV RNA Qual (PCR) SARS-CoV-2 RNA (RT-PCR) 03/13/23 03/13/23 03/13/23 05:56 06:06 07:39 WBC RBC Hgb Hct MCV MCH MCHC RDW Plt Count MPV Immature Gran % (Auto) Neut % (Auto) Lymph % (Auto) [place] % (Auto) Eos % (Auto) Baso % (Auto) Lymph # (Auto) [place] # (Auto) Eos # (Auto) Baso # (Auto) Abs Immat Gran (auto) Absolute Neuts (auto) Absolute Nucleated RBC Nucleated RBC % (auto) Smear Tech's Comments Hold Purple Top PT INR APTT aPTT Heparin Protocol D-Dimer High Sensitivty VBG pH VBG pCO2 VBG pO2 VBG HCO3 VBG O2 Saturation VBG Base Excess Sodium Potassium Chloride Carbon Dioxide Anion Gap BUN Creatinine Estim Creat Clear Calc Estimated GFR POC Glucose 271 H 281 H Random Glucose Lactic Acid Lactic Acid F/U @ 2Hr 1.4 Calcium Magnesium Total Bilirubin AST ALT Alkaline Phosphatase Troponin I High Sens B-Natriuretic Peptide Total Protein Albumin Urine Color Urine Appearance Urine pH Ur Specific [place] Urine Protein Urine Glucose (UA) Urine Ketones Urine Blood Urine Nitrite Ur Leukocyte Esterase Urine RBC Urine WBC Ur Squamous Epith Cells Urine Bacteria Hyaline Casts Influenza Type A (PCR) Influenza Type B (PCR) RSV RNA Qual (PCR) SARS-CoV-2 RNA (RT-PCR) 03/13/23 09:15 WBC RBC Hgb Hct MCV MCH MCHC RDW Plt Count MPV Immature Gran % (Auto) Neut % (Auto) Lymph % (Auto) [place] % (Auto) Eos % (Auto) Baso % (Auto) Lymph # (Auto) [place] # (Auto) Eos # (Auto) Baso # (Auto) Abs Immat Gran (auto) Absolute Neuts (auto) Absolute Nucleated RBC Nucleated RBC % (auto) Smear Tech's Comments Hold Purple Top PT INR APTT aPTT Heparin Protocol 59.2 D D-Dimer High Sensitivty VBG pH VBG pCO2 VBG pO2 VBG HCO3 VBG O2 Saturation VBG Base Excess Sodium Potassium Chloride Carbon Dioxide Anion Gap BUN Creatinine Estim Creat Clear Calc Estimated GFR POC Glucose Random Glucose Lactic Acid Lactic Acid F/U @ 2Hr Calcium Magnesium Total Bilirubin AST ALT Alkaline Phosphatase Troponin I High Sens B-Natriuretic Peptide Total Protein Albumin Urine Color Urine Appearance Urine pH Ur Specific [place] Urine Protein Urine Glucose (UA) Urine Ketones Urine Blood Urine Nitrite Ur Leukocyte Esterase Urine RBC Urine WBC Ur Squamous Epith Cells Urine Bacteria Hyaline Casts Influenza Type A (PCR) Influenza Type B (PCR) RSV RNA Qual (PCR) SARS-CoV-2 RNA (RT-PCR) Imaging Radiologist's impression: Impressions Chest X-Ray 03/12/23 23:55 IMPRESSION: Cardiomegaly with mild pulmonary vascular congestion and possible tiny pleural effusions. Chest CTA 03/13/23 00:48 IMPRESSION: 1. Limited assessment due to extensive respiratory motion artifact. However, there do appear to be filling defects in the right lower lobe pulmonary artery and possibly in a left lower lobe segmental vessel, suspicious for pulmonary emboli. 2. Small right and trace left pleural effusions. 3. Cardiomegaly. VTE: positive. This critical result was discussed with Dr. Tellez on 03/13/2023 1:23 AM, and it was ascertained that the content and urgency of the report was understood at the time of direct communication. Chest X-Ray 03/13/23 03:25 IMPRESSION: Right IJ central line tip in the region of the cavoatrial junction. Small pleural effusions and mild bibasilar opacities favoring atelectasis. Assessment and Plan (1) Atrial fibrillation with rapid ventricular response: Status: Acute Atrial fibrillation rapid ventricular response the patient with known prior history of paroxysmal atrial fibrillation not on oral anticoagulation despite multiple embolic appearing CVA with multiple comorbidities including hypertension, diabetes, prior CVA, cardiomyopathy, CAD. Atrial fibrillation most likely due to acute medical illness with COVID as well as UTI as well as acute pulmonary embolism. Blood pressure is on the softer side. Continue to manage underlying medical condition including UTI and hypoxemia associated with COVID as well as PE. Can use IV Cardizem for now as she does appear to be in heart failure and LV systolic function is only marginally depressed by last echocardiogram at [facility]. Can also digitalize with 0.25 mg IV push q.6 hours x3 doses. Can also start using p.o. metoprolol. Consider neurology/neuro surgical consultation for oral anticoagulation therapy. She has now significant indication for oral anticoagulation therapy given her PE as well as prior CVA. If the any absolute contraindication this may be a clinical dilemma and will need to discuss with family about the same. Will continue to follow with you Time Spent With Patient Time: Total time managing care of this patient today ____ minutes. Procedures Date of Service Date of Service: 03/13/23
--- NOTE | 2023-03-13 11:06 | PC.NURSE ---
RT took pt off of CPAP and transitioned to 3L via NC. pt currently tolerating transition well - satting at 98% at this time. no sob/wob noted at this time. respirations even and unlabored. still currently waiting for medication from pharmacy - will administer when able. call ybarra placed within reach.
[2023-03-13 11:47] LABS: Glucose, Whole Blood 282 mg/dL (60-115)
[2023-03-13] MEDS: glipiZIDE 10 MG TABLET PO (12:11)
[2023-03-13] MEDS: Remdesivir 200 MG in 0.9 % Sodium Chloride 210 ML 105 MG IV (12:11)
--- NOTE | 2023-03-13 12:23 | PC.NURSE ---
medication delivered by pharmacy. medication administered per provider order. pt resting comfortably in no apparent distress. respirations remain even and unlabored. call ybarra placed within reach.
--- NOTE | 2023-03-13 14:03 | PC.NURSE ---
pt currently sleeping at this time. seems to be in no apparent distress. vss and up to date. nsr on the director of cardiac rehabilitation. respirations even and unlabored. call ybarra placed within reach.
--- NOTE | 2023-03-13 14:08 | PC.NURSE ---
frances villegas held/paused at this time d/t HR being wnl. admitting provider aware at this time.
--- NOTE | 2023-03-13 15:13 | PC.NURSE ---
medication administered per provider order. pt receiving echocardiogram at this time. respirations remain even and unlabored. call ybarra placed within reach.
[2023-03-13 18:17] LABS: Glucose, Whole Blood 268 mg/dL (60-115)
--- NOTE | 2023-03-13 18:17 | PC.NURSE ---
this RN was unaware of delay in draw from phlebotomy. update APTT drawn from central line and sent to lab at this time. pt has family bedside for support. tech took POC = 262mg/dL - will administer insulin per sliding scale. pt still verbalizing no pain at this time. resting comfortably in no apparent distress. respirations remain even and unlabored.
[2023-03-13 18:27] LABS: PTT Heparin Drip 66.1 SEC (53-77.9)
--- NOTE | 2023-03-13 18:28 | PC.NURSE ---
insulin administered per sliding scale.
[2023-03-13] MEDS: Melatonin 3 MG TABLET 6 MG PO (20:53)
--- NOTE | 2023-03-13 22:49 | HO.SKINPHOTO ---
Location: Right Buttock Category: Pressure Injury Stage: 2 Length: 1.5cm Width: 1cm Depth: 0 cm
[2023-03-14 01:02] LABS: Glucose, Whole Blood 253 mg/dL (60-115)
[2023-03-14] MEDS: Insulin Lispro 100 UNIT/ML 3 ML VIAL SUBCUT ×4 (01:14→17:00)
[2023-03-14] MEDS: Heparin Sodium,Porcine/1/2NS 25,000 UNIT/250 ML IV.SOLN 8.69 UNIT IVCONT (03:27)
[2023-03-14 03:42] VITALS: BP 156/59; PULSE 89; RESP 16; TEMP 35.8; O2SAT 98
[2023-03-14 05:50] LABS: Glucose, Whole Blood 198 mg/dL (60-115)
[2023-03-14 07:21] LABS: INTERNATIONAL NORM RATIO 1.1 (0.9-1.1); Prothrombin Time 13.9 SEC (11.1-13.3)
[2023-03-14 07:24] LABS: PTT Heparin Drip 45.8 SEC (53-77.9)
--- NOTE | 2023-03-14 07:33 | P.CDIM_ITS ---
PROVIDER RESPONSE TEXT: To clarify, the appropriate diagnosis supported by the clinical indicators: Hyponatremia QUERY TEXT: PHYSICIAN'S DOCUMENTATION REQUEST Date of Query: 03/13/2023 09:52 AM EDT Patient Name: Brenna Driver Admit Date: 03/13/2023 Dear Tom Carpenter, A review of the medical record indicates additional documentation may be needed. Please review below and update the documentation accordingly. Clinical Indicators: LAB FINDINGS: sodium 129 L 130 L Based on the above, is there a diagnosis that correlates with these lab findings: Hyponatremia Labs indicate a diagnosis of (please specify) Other (explain)Clinically unable to determine (explain)Thank you, Donna Thomas, CCS, CDIS Use of terms such as suspected, likely, concern for, or probable (associated with a specific diagnosi s that is being evaluated, monitored, or treated as if it exists) are acceptable and can be coded in the inpatient se tting, when documented at the time of discharge. Please use your independent medical judgment in providing your response. THIS QUERY IS PART OF THE PERMANENT MEDICAL RECORD
[2023-03-14 07:41] VITALS: BP 106/65; PULSE 94; RESP 21; TEMP 36; O2SAT 100
[2023-03-14] MEDS: carvediloL 12.5 MG TABLET PO ×2 (08:06→21:47)
[2023-03-14] MEDS: Sodium Zirconium Cyclosilicate 10 GM POWD.PACK PO (08:06)
[2023-03-14] MEDS: Heparin Sodium,Porcine 5,000 UNIT/ML VIAL 2500 UNIT IVPUSH (08:06)
[2023-03-14] MEDS: dexAMETHasone sod phosphate 4 MG/ML VIAL 6 MG IVPUSH (08:06)
[2023-03-14] MEDS: glipiZIDE 10 MG TABLET PO (08:06)
[2023-03-14] MEDS: Sodium Bicarbonate 650 MG TABLET 1300 MG PO (08:06)
[2023-03-14] MEDS: 0.9 % Sodium Chloride Flush 3 ML SYRINGE IVFLUSH ×2 (08:07→23:43)
--- NOTE | 2023-03-14 10:19 | HO.PM.IMPN ---
Subjective Subjective Date of Service: 03/14/23 Interval History: Patient is doing much better today, she is off HiFlo and saturating near 100 on 2 liters Physical Exam Vital Signs: Vital Signs: Last Vital Signs Temp 96.8 F 03/14/23 07:41 Pulse 94 03/14/23 07:41 Resp 21 H 03/14/23 07:41 BP 106/65 03/14/23 07:41 Pulse Ox 100 03/14/23 07:41 O2 Del Method Nasal Cannula 03/14/23 07:41 O2 Flow Rate 2 03/14/23 07:41 Oxygen Flow Rate 5 03/12/23 22:55 BMI result Body Mass Index 22.6 Const: Other: General: AO X 2, no acute distress Resp: CTA bilateral CVS: S1,S2, iregular iregular GI: +BS, NT, no distention Skin: No rash Neuro: motor grossly intact Psych: appropriate affect Objective Data Active Medications Acetaminophen (Acetaminophen 325 Mg Tablet) 650 mg PO Q6H PRN PRN Reason: Pain, Mild (Pain Scale 1-3) Acetaminophen (Acetaminophen Supp 650 Mg Supp.Rect) 650 mg [place] Q6H PRN PRN Reason: Pain, Mild (Pain Scale 1-3) Aspirin (Aspirin Enteric Coated 81 Mg Tablet.Dr) 81 mg PO DAILY ON [facility] OF [facility] Last Admin: 03/14/23 08:17 Dose: Not Given Documented By: SAMRA Non-Admin Reason: Cant be crushed Carvedilol (Carvedilol 12.5 Mg Tablet) 12.5 mg PO BID ON LICENSE OF [facility]; Protocol Last Admin: 03/14/23 08:06 Dose: 12.5 mg Documented By: SAMRA Dexamethasone Sodium Phosphate (Dexamethasone Sod Phosphate 4 Mg/Ml Vial) 6 mg IVPUSH DAILY ON LICENSE OF [facility] Last Admin: 03/14/23 08:06 Dose: 6 mg Documented By: SAMRA Dextrose (Dextrose 50 % 25 Gm/50 Ml Syringe) 25 gm IVPUSH Q15M PRN; Protocol PRN Reason: per Hypoglycemia Standing Ord. Digoxin (Digoxin 0.125 Mg Tablet) 0.125 mg PO Q2D ON LICENSE OF [facility] Glipizide (Glipizide 10 Mg Tablet) 10 mg PO DAILY ON [facility] OF [facility] Last Admin: 03/14/23 08:06 Dose: 10 mg Documented By: SAMRA Glucose (Glucose Gel 15 Gm Gel..Gram.) 15 gm PO Q15M PRN; Protocol PRN Reason: per Hypoglycemia Standing Ord. Heparin Sodium (Porcine) (Heparin Sodium,Porcine 5,000 Unit/Ml Vial) 2,500 unit 40 unit/kg (2500 unit) IVPUSH PROTOCOL BOLUS PRN; Protocol PRN Reason: 40 unit/kg - Heparin Protocol Last Admin: 03/14/23 08:06 Dose: 2,500 unit Documented By: SAMRA Heparin Sodium (Porcine) (Heparin Sodium,Porcine 5,000 Unit/Ml Vial) 5,000 unit 80 unit/kg (5000 unit) IVPUSH PROTOCOL BOLUS PRN; Protocol PRN Reason: 80 unit/kg - Heparin Protocol Diltiazem HCl 125 mg/ Sodium (Chloride) 125 mls @ 0 mls/hr IVCONT .Q0M [facility]; Protocol Last Titration: 03/14/23 09:34 Dose: Infused Documented By: SAMRA Heparin Sodium/Sodium Chloride (Heparin Sodium,Porcine/1/2ns) 25,000 unit in 250 mls @ 0 mls/hr IVCONT .Q0M [facility]; Protocol Last Titration: 03/14/23 07:30 Dose: 16 units/kg/hr, 9.94 mls/hr Documented By: SAMRA Co-signed By: LEONELA Ceftriaxone Sodium 1 gm/ (Sodium Chloride) 50 mls @ 100 mls/hr IV Q24H ON LICENSE OF [facility] Last Infusion: 03/13/23 21:31 Dose: Infused Documented By: COURTNEY Remdesivir 100 mg/ Sodium (Chloride) 230 mls @ 115 mls/hr IV Q24H ON LICENSE OF [facility] Stop: 03/15/23 13:59 Insulin Human Lispro (Insulin Lispro 100 Unit/Ml 3 Ml Vial) 0 unit SUBCUT Q6H [facility]; Protocol Last Admin: 03/14/23 06:19 Dose: 2 unit Documented By: COURTNEY Melatonin (Melatonin 3 Mg Tablet) 6 mg PO BEDTIME PRN PRN Reason: Insomnia Last Admin: 03/13/23 20:53 Dose: 6 mg Documented By: COURTNEY Melatonin (Melatonin 3 Mg Tablet) 3 mg PO BEDTIME PRN PRN Reason: Sleep Ondansetron HCl (Ondansetron Hcl 4 Mg/2 Ml Vial) 4 mg IVPUSH Q8H PRN PRN Reason: Nausea and Vomiting Sodium Bicarbonate (Sodium Bicarbonate 650 Mg Tablet) 1,300 mg PO DAILY ON [facility] OF [facility] Last Admin: 03/14/23 08:06 Dose: 1,300 mg Documented By: SAMRA Sodium Chloride (0.9 % Sodium Chloride Flush 3 Ml Syringe) 3 ml IVFLUSH QSHIFT ON LICENSE OF [facility] Last Admin: 03/14/23 08:07 Dose: 3 ml Documented By: SAMRA Sodium Zirconium Cyclosilicate (Sodium Zirconium Cyclosilicate 10 Gm Powd.Pack) 10 gm PO DAILY ON LICENSE OF [facility] Last Admin: 03/14/23 08:06 Dose: 10 gm Documented By: SAMRA Valsartan (Valsartan 40 Mg Tablet) 20 mg PO BID ON LICENSE OF [facility]; Protocol Labs 03/13/23 05:03 03/13/23 05:03 Labs: Laboratory Results - last 24 hr 03/13/23 03/13/23 03/13/23 11:42 18:09 18:12 Hold Purple Top PT INR aPTT Heparin Protocol 66.1 POC Glucose 282 H 268 H 03/14/23 03/14/23 03/14/23 00:58 05:36 06:25 Hold Purple Top PT 13.9 H INR 1.1 aPTT Heparin Protocol 45.8 L D POC Glucose 253 H 198 H 03/14/23 06:53 Hold Purple Top SEE NOTE PT INR aPTT Heparin Protocol POC Glucose Microbiology Microbiology Results: Microbiology 03/12/23 23:43 Blood Culture - Preliminary Blood - Venous No growth after 24 hours. 03/12/23 23:43 Blood Culture - Preliminary Blood - Venous No growth after 24 hours. 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 Acute hypoxemic respiratory failure secondary to acute submassive right-sided PE and COVID-19 infection. Off hi flwo Covid 19 with hypoxia, continue Decadrone, add Remdesevir x 3 days PE--On IV heparin, get an echo pending, will transition to PO eliquis in a day Sepsis due to acute UTI: Culture pending, continue Rocephin 03/13 Acute metabolic encephalopathy in the setting of above, back to baseline AFib, RVR resolved, stop cardizem, continue coreg and Digoxin added, previously not anticoagulated but now on heparin, will investigate contraindication to anticoagulation Acute kidney injury stage I: Monitor creatinine and urine output. IVF Hyperkalemia due to JOSEPH: resolved after lokelma Gks-ubakbbg-fyonyievb diabetes glycemia: BS check , SSI Essential hypertension: Hold antihypertensives in the setting of sepsis and low Bap History of CVA with residual right-sided weakness: On dual antiplatelet therapy and high-intensity statin DNR/DNI need for inpatient: management with covid and PE with hypoxia and on IV heparin Time Spent With Patient Time: Total time managing care of this patient today ____ minutes. Quality Stroke Does the patient have a stroke diagnosis?: No VTE Prior VTE?: No VTE Risk Level:: Medical - moderate - high VTE Device Contraindication: Treatment Not Indicated VTE Drug Contraindication: N/A - Med Ordered
--- NOTE | 2023-03-14 10:29 | PM.PNCARD ---
Subjective Subjective Date of Service: 03/14/23 Principal diagnosis: Atrial fibrillation, cardiomyopathy. Interval history: Patient currently having no cardiac symptoms. Echocardiogram shows further worsening LV ejection fraction. Patient denies any shortness of breath orthopnea. Heart rate is much better control at this point time. Tolerating IV heparin therapy. Review of Systems Constitutional: Reports no additional constitutional complaints Cardiovascular: Reports no additional cardiovascular complaints Gastrointestinal: Reports no additional gastrointestinal complaints Reports system reviewed and no additional complaints, except as documented Physical Exam Vital Signs: Last Vital Signs Temp 96.8 F 03/14/23 07:41 Pulse 94 03/14/23 07:41 Resp 21 H 03/14/23 07:41 BP 106/65 03/14/23 07:41 Pulse Ox 100 03/14/23 07:41 O2 Del Method Nasal Cannula 03/14/23 07:41 O2 Flow Rate 2 03/14/23 07:41 Oxygen Flow Rate 5 03/12/23 22:55 BMI result Body Mass Index 22.6 Const General: cooperative, alert and awake Nutritional Appearance: thin Orientation/consciousness: patient oriented x3 HEENT Head: Yes normocephalic and Yes atraumatic Neck Neck: Yes trachea midline, Yes supple and Yes no JVD Resp Effort & Inspection: decreased respiratory effort Auscultation: clear to auscultation bilaterally Cardio Jugular venous distension: no JVD Rate: tachycardic Rhythm: abnormal rhythm irregularly irregular Heart sounds: S1 normal heart sound present, S2 normal heart sound present, no click, no gallops and no murmurs GI Auscultation: normal bowel sounds Skin General skin exam: no rashes or lesions noted Neuro General: patient oriented x3 Extrem General: Yes no clubbing, cyanosis or edema Objective Labs and Meds 03/13/23 05:03 03/13/23 05:03 Lab results: Laboratory Results - last 24 hr 03/13/23 03/13/23 03/13/23 11:42 18:09 18:12 Hold Purple Top PT INR aPTT Heparin Protocol 66.1 POC Glucose 282 H 268 H 03/14/23 03/14/23 03/14/23 00:58 05:36 06:25 Hold Purple Top PT 13.9 H INR 1.1 aPTT Heparin Protocol 45.8 L D POC Glucose 253 H 198 H 03/14/23 06:53 Hold Purple Top SEE NOTE PT INR aPTT Heparin Protocol POC Glucose Progress Note: A&P Assessment and plan (1) Cardiomyopathy: Status: Acute Assessment and Plan: Patient with worsening LV systolic dysfunction secondary cardiomyopathy. Doing well at this point in time without overt signs of heart failure. Cause for worsening LV systolic function unclear whether this is related to progressive cardiomyopathic process and/or related to tachycardia mediated cardiomyopathy and/or stress-induced cardiomyopathy. Switch to oral metoprolol therapy for neurohormonal modulation as well as rate control. Add digoxin for rate control. Avoid calcium channel blockers. Also can start on angiotensin receptor antagonist such as valsartan 20 mg b.i.d. for neurohormonal modulation eventually switch to Entresto of the blood pressure tolerates. Blood pressure is on the lower side at this point in time. Signs and symptoms of heart failure were discussed. No indication for diuretic regimen at this point in time. (2) Atrial fibrillation with rapid ventricular response: Status: Acute Assessment and Plan: Atrial fibrillation rapid ventricular response, persistent at this point time. Rate is adequately control at this point time. Switch to oral digoxin metoprolol for rate control. Given acute pulmonary embolism as well as prior multiple CVAs which appear to be embolic in nature consider oral anticoagulation therapy. Will follow up if need be. Thank you for allowing me to partake in her care Time Spent With Patient Time: Total time managing care of this patient today ____ minutes. Progress Note: Quality Stroke Does the patient have a stroke diagnosis?: No Procedures Date of Service Date of Service: 03/14/23
[2023-03-14] MEDS: Digoxin 0.125 MG TABLET PO (11:17)
[2023-03-14] MEDS: Valsartan 40 MG TABLET 20 MG PO ×2 (11:17→21:47)
[2023-03-14] MEDS: Remdesivir 100 MG in 0.9 % Sodium Chloride 230 ML 115 MG IV (11:18)
--- NOTE | 2023-03-14 11:28 | MHC.CM.PN ---
EMR REVIEWED, PER HOSPITALIST ANTIC PT WILL BE MEDICALLY CLEARED FOR DC TOMORROW AND PLAN CONT'S TO BE [facility] TO RESUME STR, SNF UPDATED AND CM WILL CONT TO FOLLOW DC NEEDS.
--- NOTE | 2023-03-14 11:34 | P.CDIM_ITS ---
PROVIDER RESPONSE TEXT: To clarify, the appropriate diagnosis supported by the clinical indicators: Pressure (decubitus) ulcer/injury right buttock Stage 2 QUERY TEXT: PHYSICIAN'S DOCUMENTATION REQUEST Date of Query: 03/14/2023 08:52 AM EDT Patient Name: Brenna Driver Admit Date: 03/13/2023 Dear Tom Guerrero, A review of the medical record indicates additional documentation may be needed. Please review below and update the documentation accordingly. Clinical Indicators: Wound care nursing notes - Pressure injury right buttock Stage 2 Triad applied to wound bed and foam dressing placed on top. Based on the above, could you please provide further information regarding the ulcer/wound: Pressure (decubitus) ulcer/injury right buttock Stage 2 Other please specify Other (explain)Clinically unable to determine (explain)Thank you, Donna Thomas, CCS, CDIS Use of terms such as suspected, likely, concern for, or probable (associated with a specific diagnosi s that is being evaluated, monitored, or treated as if it exists) are acceptable and can be coded in the inpatient se tting, when documented at the time of discharge. Please use your independent medical judgment in providing your response. THIS QUERY IS PART OF THE PERMANENT MEDICAL RECORD
--- NOTE | 2023-03-14 11:35 | P.CDIM_ITS ---
PROVIDER RESPONSE TEXT: To clarify, the appropriate diagnosis supported by the clinical indicators: Diabetes mellitus with hyperglycemia QUERY TEXT: PHYSICIAN'S DOCUMENTATION REQUEST Date of Query: 03/14/2023 10:24 AM EDT Patient Name: Brenna Driver Admit Date: 03/13/2023 Dear Tom Carpenter, A review of the medical record indicates additional documentation may be needed. Please review below and update the documentation accordingly. Clinical Indicators: PN: Kdo-rbwtqcg-dydxrumhz diabetes glycemia: BS check, SSI POC glucose 282 H Please clarify the following regarding the Complications of Diabetes Mellitus (DM): Diabetes mellitus with hyperglycemia Diabetes mellitus with hypoglycemia Other please specify Other (explain)Clinically unable to determine (explain)Thank you, Donna Thomas, CCS, CDIS Use of terms such as suspected, likely, concern for, or probable (associated with a specific diagnosi s that is being evaluated, monitored, or treated as if it exists) are acceptable and can be coded in the inpatient se tting, when documented at the time of discharge. Please use your independent medical judgment in providing your response. THIS QUERY IS PART OF THE PERMANENT MEDICAL RECORD
[2023-03-14 12:00] VITALS: BP 111/61; PULSE 92; RESP 18; TEMP 37; O2SAT 100
[2023-03-14 12:18] LABS: Glucose, Whole Blood 233 mg/dL (60-115)
--- NOTE | 2023-03-14 12:30 | MHC.CM.PN ---
CM RECEIVED COPY FROM PT'S RN OF LIVING WILL DECLARATION AND HCP, DOCUMENTS UPLOADED TO [facility] AND WILL BE PLACED IN CHART.
[2023-03-14 13:59] VITALS: BMI 22.6
[2023-03-14 14:29] LABS: PTT Heparin Drip 119.3 SEC (53-77.9)
[2023-03-14 15:54] VITALS: BP 114/59; PULSE 81; RESP 16; TEMP 36.4; O2SAT 99
[2023-03-14 16:41] LABS: PTT Heparin Drip 41.8 SEC (53-77.9)
[2023-03-14 17:01] LABS: Glucose, Whole Blood 301 mg/dL (60-115)
--- NOTE | 2023-03-14 18:28 | PC.NURSE ---
Pt's Heparin drip paused d/t high ptt of 119.3. Drip restarted at 1646 at 12 units/kg/hr (7.45 mls/hr) per policy. No bolus given. There was an error typed into Heparin drip MAR documentation stating that the drip was restarted at 19.32 units/kg/hr (12mls/hr) which was typed by accident. The new rate of 12 was typed into the mls/hr column instead of the units/kg/hr column. Pharmacy is aware that it only ever ran at 12 units/kg/hr and that it was a mistake only in the MAR documentation not the physical pump.
[2023-03-14 19:54] VITALS: BP 143/62; PULSE 89; RESP 16; TEMP 36.4; O2SAT 98
[2023-03-14] MEDS: cefTRIAXone sodium 1 GM in 0.9 % Sodium Chloride 50 ML IV (21:47)
[2023-03-14 23:03] VITALS: BP 131/60; PULSE 88; RESP 18; TEMP 36.6; O2SAT 96
[2023-03-14 23:59] LABS: Glucose, Whole Blood 294 mg/dL (60-115)
[2023-03-15 00:30] LABS: PTT Heparin Drip > 200.0 SEC (53-77.9)
[2023-03-15] MEDS: Insulin Lispro 100 UNIT/ML 3 ML VIAL SUBCUT ×4 (00:56→16:49)
[2023-03-15 02:48] LABS: PTT Heparin Drip 26.2 SEC (53-77.9)
[2023-03-15] MEDS: Heparin Sodium,Porcine/1/2NS 25,000 UNIT/250 ML IV.SOLN 4.97 UNIT IVCONT (03:28)
[2023-03-15 03:32] VITALS: BP 115/83; PULSE 63; RESP 14; TEMP 36.3; O2SAT 97
[2023-03-15 05:27] LABS: Glucose, Whole Blood 233 mg/dL (60-115)
[2023-03-15 07:39] VITALS: BP 127/58; PULSE 67; RESP 18; TEMP 36.2; O2SAT 97
[2023-03-15] MEDS: Valsartan 40 MG TABLET 20 MG PO ×2 (08:49→20:12)
[2023-03-15] MEDS: Sodium Bicarbonate 650 MG TABLET 1300 MG PO (08:49)
[2023-03-15] MEDS: glipiZIDE 10 MG TABLET PO (08:49)
[2023-03-15] MEDS: carvediloL 12.5 MG TABLET PO ×2 (08:49→20:11)
[2023-03-15] MEDS: 0.9 % Sodium Chloride Flush 3 ML SYRINGE IVFLUSH ×2 (08:51→20:12)
[2023-03-15] MEDS: dexAMETHasone sod phosphate 4 MG/ML VIAL 6 MG IVPUSH (08:51)
[2023-03-15 09:39] LABS: Hematocrit 33.1 % (37.0-47.0); Hemoglobin 10.9 g/dl (12.0-16.0); Mean Corpuscular HGB Conc 32.9 g/dl (31.0-35.0); Mean Corpuscular Hemoglobin 28.2 pg (27.0-33.0); Mean Corpuscular Volume 85.5 fL (80.0-98.0); Mean Platelet Volume 10.1 fL (9.4-12.3); Platelet Count 433 X10*3/uL (160-400); Red Blood Count 3.87 X10*6/uL (4.20-5.50); Red Cell Distribution Width 13.7 % (11.0-16.0); White Blood Count 17.4 X10*3/uL (4.8-10.8)
[2023-03-15 09:52] LABS: Anion Gap 17 (12-20); Blood Urea Nitrogen 46 mg/dL (9-16); Calcium 8.5 mg/dL (8.4-10.2); Carbon Dioxide 20 mmol/L (22-29); Chloride 99 mmol/L (96-108); Estimated Glomerular Filt Rate 35; Glucose Random 328 mg/dL (60-115); Potassium 3.8 mmol/L (3.3-5.1); Sodium 132 mmol/L (135-145)
[2023-03-15 09:56] LABS: PTT Heparin Drip 30.4 SEC (53-77.9)
[2023-03-15] MEDS: Heparin Sodium,Porcine 5,000 UNIT/ML VIAL 5000 UNIT IVPUSH (10:13)
--- NOTE | 2023-03-15 10:56 | P.PNIM_ITS ---
Subjective Subjective Date of Service: 03/15/23 Interval History: No new issues, O2 sat is within normal off O2 Physical Exam 2 Vital Signs: Vital Signs: Last Vital Signs Temp 97.2 F 03/15/23 07:39 Pulse 67 03/15/23 07:39 Resp 18 03/15/23 07:39 BP 127/58 L 03/15/23 07:39 Pulse Ox 97 03/15/23 07:39 O2 Del Method Nasal Cannula 03/15/23 07:39 O2 Flow Rate 1 03/15/23 07:39 Oxygen Flow Rate 5 03/12/23 22:55 BMI result Body Mass Index 22.6 Const: Other: General: AO X 2, no acute distress Resp: CTA bilateral CVS: S1,S2, iregular iregular GI: +BS, NT, no distention Skin: No rash Neuro: motor grossly intact Psych: appropriate affect Objective Data Active Medications Acetaminophen (Acetaminophen 325 Mg Tablet) 650 mg PO Q6H PRN PRN Reason: Pain, Mild (Pain Scale 1-3) Acetaminophen (Acetaminophen Supp 650 Mg Supp.Rect) 650 mg [place] Q6H PRN PRN Reason: Pain, Mild (Pain Scale 1-3) Aspirin (Aspirin Enteric Coated 81 Mg Tablet.Dr) 81 mg PO DAILY [facility] Last Admin: 03/15/23 08:51 Dose: Not Given Documented By: ALEX Non-Admin Reason: Patient Refused Carvedilol (Carvedilol 12.5 Mg Tablet) 12.5 mg PO BID [facility]; Protocol Last Admin: 03/15/23 08:49 Dose: 12.5 mg Documented By: ALEX Dexamethasone Sodium Phosphate (Dexamethasone Sod Phosphate 4 Mg/Ml Vial) 6 mg IVPUSH DAILY [facility] Last Admin: 03/15/23 08:51 Dose: 6 mg Documented By: ALEX Dextrose (Dextrose 50 % 25 Gm/50 Ml Syringe) 25 gm IVPUSH Q15M PRN; Protocol PRN Reason: per Hypoglycemia Standing Ord. Digoxin (Digoxin 0.125 Mg Tablet) 0.125 mg PO Q2D [facility] Last Admin: 03/14/23 11:17 Dose: 0.125 mg Documented By: SAMRA Glipizide (Glipizide 10 Mg Tablet) 10 mg PO DAILY [facility] Last Admin: 03/15/23 08:49 Dose: 10 mg Documented By: ALEX Glucose (Glucose Gel 15 Gm Gel..Gram.) 15 gm PO Q15M PRN; Protocol PRN Reason: per Hypoglycemia Standing Ord. Heparin Sodium (Porcine) (Heparin Sodium,Porcine 5,000 Unit/Ml Vial) 2,500 unit 40 unit/kg (2500 unit) IVPUSH PROTOCOL BOLUS PRN; Protocol PRN Reason: 40 unit/kg - Heparin Protocol Last Admin: 03/14/23 08:06 Dose: 2,500 unit Documented By: SAMRA Heparin Sodium (Porcine) (Heparin Sodium,Porcine 5,000 Unit/Ml Vial) 5,000 unit 80 unit/kg (5000 unit) IVPUSH PROTOCOL BOLUS PRN; Protocol PRN Reason: 80 unit/kg - Heparin Protocol Last Admin: 03/15/23 10:13 Dose: 5,000 unit Documented By: ALEX Heparin Sodium/Sodium Chloride (Heparin Sodium,Porcine/1/2ns) 25,000 unit in 250 mls @ 0 mls/hr IVCONT .Q0M [facility]; Protocol Last Titration: 03/15/23 10:14 Dose: 12 units/kg/hr, 7.45 mls/hr Documented By: ALEX Co-signed By: OG Ceftriaxone Sodium 1 gm/ (Sodium Chloride) 50 mls @ 100 mls/hr IV Q24H [facility] Last Infusion: 03/14/23 22:21 Dose: Infused Documented By: LIZY Remdesivir 100 mg/ Sodium (Chloride) 230 mls @ 115 mls/hr IV Q24H [facility] Stop: 03/15/23 13:59 Last Infusion: 03/14/23 13:26 Dose: Infused Documented By: SAMRA Insulin Human Lispro (Insulin Lispro 100 Unit/Ml 3 Ml Vial) 0 unit SUBCUT Q6H [facility]; Protocol Last Admin: 03/15/23 06:01 Dose: 4 unit Documented By: MANUELITO Melatonin (Melatonin 3 Mg Tablet) 6 mg PO BEDTIME PRN PRN Reason: Insomnia Last Admin: 03/13/23 20:53 Dose: 6 mg Documented By: COURTNEY Melatonin (Melatonin 3 Mg Tablet) 3 mg PO BEDTIME PRN PRN Reason: Sleep Ondansetron HCl (Ondansetron Hcl 4 Mg/2 Ml Vial) 4 mg IVPUSH Q8H PRN PRN Reason: Nausea and Vomiting Sodium Bicarbonate (Sodium Bicarbonate 650 Mg Tablet) 1,300 mg PO DAILY [facility] Last Admin: 03/15/23 08:49 Dose: 1,300 mg Documented By: ALEX Sodium Chloride (0.9 % Sodium Chloride Flush 3 Ml Syringe) 3 ml IVFLUSH QSHIFT [facility] Last Admin: 03/15/23 08:51 Dose: 3 ml Documented By: ALEX Sodium Zirconium Cyclosilicate (Sodium Zirconium Cyclosilicate 10 Gm Powd.Pack) 10 gm PO DAILY [facility] Last Admin: 03/15/23 08:52 Dose: Not Given Documented By: ALEX Non-Admin Reason: Patient Refused Valsartan (Valsartan 40 Mg Tablet) 20 mg PO BID [facility]; Protocol Last Admin: 03/15/23 08:49 Dose: 20 mg Documented By: ALEX Labs 03/15/23 09:29 03/15/23 09:30 Labs: Laboratory Results - last 24 hr 03/14/23 03/14/23 03/14/23 12:06 13:45 15:44 MCV MCH MCHC RDW Plt Count MPV Absolute Nucleated RBC Nucleated RBC % (auto) aPTT Heparin Protocol 119.3 H* D 41.8 L D Anion Gap Estim Creat Clear Calc Estimated GFR POC Glucose 233 H Random Glucose Calcium 03/14/23 03/14/23 03/14/23 16:57 23:05 23:40 MCV MCH MCHC RDW Plt Count MPV Absolute Nucleated RBC Nucleated RBC % (auto) aPTT Heparin Protocol > 200.0 H* D Anion Gap Estim Creat Clear Calc Estimated GFR POC Glucose 301 H 294 H Random Glucose Calcium 03/15/23 03/15/23 03/15/23 02:33 05:19 09:29 MCV 85.5 MCH 28.2 MCHC 32.9 RDW 13.7 Plt Count 433 H MPV 10.1 Absolute Nucleated RBC 0.000 Nucleated RBC % (auto) 0.0 aPTT Heparin Protocol 26.2 L D 30.4 L Anion Gap Estim Creat Clear Calc Estimated GFR POC Glucose 233 H Random Glucose Calcium 03/15/23 09:30 MCV MCH MCHC RDW Plt Count MPV Absolute Nucleated RBC Nucleated RBC % (auto) aPTT Heparin Protocol Anion Gap 17 Estim Creat Clear Calc 31.0 Estimated GFR 35 POC Glucose Random Glucose 328 H Calcium 8.5 Microbiology Microbiology Results: Microbiology 03/13/23 Unknown Urine Culture - Preliminary Urine clean catch - Clean Catch Midstream Gram negative 03/12/23 23:43 Blood Culture - Preliminary Blood - Venous No growth after 48 hours. 03/12/23 23:43 Blood Culture - Preliminary Blood - Venous No growth after 48 hours. Assessment and Plan (1) Acute hypoxic respiratory failure: Status: Acute (2) Pulmonary embolism: Status: Acute (3) COVID-19: Status: Acute Plan 72-year-old female with pertinent history of CVA with residual right-sided weakness, paroxysmal atrial fibrillation not on anticoagulation, dfs-ygvdhix-cieoctrdw diabetes mellitus, essential hypertension, mixed hyperlipidemia who was sent to the emergency department for evaluation of dyspnea and hypoxemia. Acute hypoxemic respiratory failure secondary to acute submassive right-sided PE and COVID-19 infection. Off hi flwo Covid 19 with hypoxia, continue Decadrone, add Remdesevir x 3 days PE--On IV heparin, get an echo pending, will transition to PO eliquis in a day later today Sepsis due to acute UTI: Culture pending, continue Rocephin 03/13 Acute metabolic encephalopathy in the setting of above, back to baseline AFib, RVR, resolved. Reason for no anticoagulation not clear. She was admitted to [facility] from 02/07 to 03/02: with the following summery: ?This is a 72-year-old woman with a history of previous CVA with right hemiparesis, hypertension, type 2 diabetes mellitus, chronic kidney disease stage III, atrial fibrillation, coronary artery disease and ischemic myopathy.? She was recently mated to [facility] on with visual changes and a left ICA occlusion along with multiple left hemisphere lesions.? She was discharged.? She returned to [facility] on 01/25/2023 with worsening expressive aphasia she was transferred to [facility] for concern of recurrent stroke and for angiogram/stent.? She was noted to have an acute infarct in the watershed area.? She was found to have right ICA stenosis of 60% and underwent carotid stent on 01/25.? After the stent she was noted to have worsening right upper extremity weakness and right-sided hemiparesis and was value by CT scan for the finding of hemorrhagic conversion vs contast extravasation per neurology.? Patient reinitiated dual antiplatelet therapy.? Given increasing right-sided weakness along with worsening expressive aphasia she was felt to need a course of acute inpatient rehabilitation and she was deemed medically stable and transferred to [place] [facility] on 02/07/2023. No mention of why she is not anticoagulated for AFIB Acute kidney injury stage I: [facility] record indicated she has stage 3 CKD Hyperkalemia due to JOSEPH: resolved after lokelma Hwj-axnigva-diqpldqvl diabetes glycemia: BS check , SSI Essential hypertension: Hold antihypertensives in the setting of sepsis and low Bap History of CVA with residual right-sided weakness: On dual antiplatelet therapy and high-intensity statin DNR/DNI need for inpatient: management with covid and PE with hypoxia and on IV hepari Time Spent With Patient Time: Total time managing care of this patient today ____ minutes. Quality Stroke Does the patient have a stroke diagnosis?: No VTE Prior VTE?: No VTE Risk Level:: Medical - moderate - high VTE Device Contraindication: Treatment Not Indicated VTE Drug Contraindication: N/A - Med Ordered
[2023-03-15] MEDS: Remdesivir 100 MG in 0.9 % Sodium Chloride 230 ML 115 MG IV (11:41)
[2023-03-15 11:47] LABS: Glucose, Whole Blood 300 mg/dL (60-115)
[2023-03-15 11:50] VITALS: BP 107/56; PULSE 100; RESP 18; TEMP 36.1; O2SAT 97
[2023-03-15] MEDS: Lactated Ringers 1,000 ML 80 ML IVCONT (13:36)
[2023-03-15 15:23] VITALS: BP 106/56; PULSE 52; RESP 18; TEMP 36; O2SAT 98
[2023-03-15 16:36] LABS: Glucose, Whole Blood 374 mg/dL (60-115)
[2023-03-15 17:20] LABS: PTT Heparin Drip 82.8 SEC (53-77.9)
[2023-03-15 19:15] VITALS: BP 136/63; PULSE 58; RESP 18; TEMP 36.6; O2SAT 97
[2023-03-15] MEDS: cefTRIAXone sodium 1 GM in 0.9 % Sodium Chloride 50 ML IV (23:00)
[2023-03-15 23:37] VITALS: BP 127/89; PULSE 67; RESP 18; TEMP 37; O2SAT 97
[2023-03-16 00:14] LABS: PTT Heparin Drip 64.6 SEC (53-77.9)
[2023-03-16 00:42] LABS: Glucose, Whole Blood 283 mg/dL (60-115)
[2023-03-16] MEDS: Insulin Lispro 100 UNIT/ML 3 ML VIAL SUBCUT ×4 (01:15→17:49)
[2023-03-16 02:47] VITALS: BP 146/71; PULSE 53; RESP 17; TEMP 37.1; O2SAT 97
[2023-03-16 06:22] LABS: Glucose, Whole Blood 190 mg/dL (60-115)
[2023-03-16 06:38] LABS: CDiff Gene PCR POSITIVE (Negative)
[2023-03-16 07:54] VITALS: BP 137/64; PULSE 96; RESP 16; TEMP 36.2; O2SAT 95
[2023-03-16] MEDS: Valsartan 40 MG TABLET 20 MG PO ×2 (07:55→20:56)
[2023-03-16] MEDS: Lactated Ringers 1,000 ML 80 ML IVCONT (07:55)
[2023-03-16] MEDS: 0.9 % Sodium Chloride Flush 3 ML SYRINGE IVFLUSH ×2 (07:55→16:18)
[2023-03-16] MEDS: dexAMETHasone sod phosphate 4 MG/ML VIAL 6 MG IVPUSH (07:56)
[2023-03-16] MEDS: Aspirin Enteric Coated 81 MG TABLET.DR PO (07:56)
[2023-03-16] MEDS: Sodium Bicarbonate 650 MG TABLET 1300 MG PO (07:56)
[2023-03-16] MEDS: glipiZIDE 10 MG TABLET PO (07:56)
[2023-03-16] MEDS: carvediloL 12.5 MG TABLET PO ×2 (07:56→20:56)
[2023-03-16 08:00] VITALS: BP 137/64; PULSE 96; RESP 16; TEMP 36.2; O2SAT 95
[2023-03-16 08:49] LABS: CDiff Toxin Positive (Negative)
[2023-03-16 08:50] LABS: CDIFF Internal ctrl Dots and bkg OK (V)
--- NOTE | 2023-03-16 08:56 | MHC.IC ---
Pt is CDIFF POSITIVE. Gowns and gloves MUST be worn within the room and hand MUST be washed with SOAP AND WATER after providing care. Thank you.
[2023-03-16 08:58] LABS: PTT Heparin Drip 31.9 SEC (53-77.9)
[2023-03-16 11:01] LABS: Glucose, Whole Blood 234 mg/dL (60-115)
--- NOTE | 2023-03-16 11:19 | P.PNIM_ITS ---
Subjective Subjective Date of Service: 03/16/23 Interval History: No new issues, O2 sat is within normal off O2 Physical Exam 2 Vital Signs: Vital Signs: Last Vital Signs Temp 97.1 F 03/16/23 08:00 Pulse 96 03/16/23 08:00 Resp 16 03/16/23 08:00 BP 137/64 03/16/23 08:00 Pulse Ox 95 03/16/23 08:00 O2 Del Method Room Air 03/16/23 08:00 O2 Flow Rate 1 03/15/23 07:39 Oxygen Flow Rate 5 03/12/23 22:55 BMI result Body Mass Index 22.6 Const: Other: General: AO X 2, no acute distress Resp: CTA bilateral CVS: S1,S2, iregular iregular GI: +BS, NT, no distention Skin: No rash Neuro: motor grossly intact Psych: appropriate affect Objective Data Active Medications Acetaminophen (Acetaminophen 325 Mg Tablet) 650 mg PO Q6H PRN PRN Reason: Pain, Mild (Pain Scale 1-3) Acetaminophen (Acetaminophen Supp 650 Mg Supp.Rect) 650 mg CO Q6H PRN PRN Reason: Pain, Mild (Pain Scale 1-3) Apixaban (Apixaban 5 Mg Tablet) 5 mg PO BID [facility] Aspirin (Aspirin Enteric Coated 81 Mg Tablet.Dr) 81 mg PO DAILY [facility] Last Admin: 03/16/23 07:56 Dose: 81 mg Documented By: SAMRA Carvedilol (Carvedilol 12.5 Mg Tablet) 12.5 mg PO BID [facility]; Protocol Last Admin: 03/16/23 07:56 Dose: 12.5 mg Documented By: SAMRA Dexamethasone Sodium Phosphate (Dexamethasone Sod Phosphate 4 Mg/Ml Vial) 6 mg IVPUSH DAILY [facility] Last Admin: 03/16/23 07:56 Dose: 6 mg Documented By: SAMRA Dextrose (Dextrose 50 % 25 Gm/50 Ml Syringe) 25 gm IVPUSH Q15M PRN; Protocol PRN Reason: per Hypoglycemia Standing Ord. Digoxin (Digoxin 0.125 Mg Tablet) 0.125 mg PO Q2D [facility] Last Admin: 03/14/23 11:17 Dose: 0.125 mg Documented By: SAMRA Glipizide (Glipizide 10 Mg Tablet) 10 mg PO DAILY [facility] Last Admin: 03/16/23 07:56 Dose: 10 mg Documented By: SAMRA Glucose (Glucose Gel 15 Gm Gel..Gram.) 15 gm PO Q15M PRN; Protocol PRN Reason: per Hypoglycemia Standing Ord. Ceftriaxone Sodium 1 gm/ (Sodium Chloride) 50 mls @ 100 mls/hr IV Q24H [facility] Last Infusion: 03/15/23 23:30 Dose: Infused Documented By: RAVIN Lactated Ringer's (Lr) 1,000 mls @ 80 mls/hr IVCONT .[id number] [facility] Last Admin: 03/16/23 11:08 Dose: Not Given Documented By: SAMRA Non-Admin Reason: Bag hung earlier Insulin Human Lispro (Insulin Lispro 100 Unit/Ml 3 Ml Vial) 0 unit SUBCUT Q6H [facility]; Protocol Last Admin: 03/16/23 07:35 Dose: 2 unit Documented By: RAVIN Melatonin (Melatonin 3 Mg Tablet) 6 mg PO BEDTIME PRN PRN Reason: Insomnia Last Admin: 03/13/23 20:53 Dose: 6 mg Documented By: COURTNEY Melatonin (Melatonin 3 Mg Tablet) 3 mg PO BEDTIME PRN PRN Reason: Sleep Ondansetron HCl (Ondansetron Hcl 4 Mg/2 Ml Vial) 4 mg IVPUSH Q8H PRN PRN Reason: Nausea and Vomiting Sodium Bicarbonate (Sodium Bicarbonate 650 Mg Tablet) 1,300 mg PO DAILY [facility] Last Admin: 03/16/23 07:56 Dose: 1,300 mg Documented By: SAMRA Sodium Chloride (0.9 % Sodium Chloride Flush 3 Ml Syringe) [facility] Last Admin: 03/16/23 07:55 Dose: 3 ml Documented By: SAMRA Sodium Zirconium Cyclosilicate (Sodium Zirconium Cyclosilicate 10 Gm Powd.Pack) 10 gm PO DAILY [facility] Last Admin: 03/16/23 08:08 Dose: Not Given Documented By: SAMRA Non-Admin Reason: Patient Refused Valsartan (Valsartan 40 Mg Tablet) 20 mg PO BID [facility]; Protocol Last Admin: 03/16/23 07:55 Dose: 20 mg Documented By: SAMRA Labs 03/15/23 09:29 10/26/23 09:30 Labs: Laboratory Results - last 24 hr 03/15/23 03/15/23 03/15/23 11:23 16:32 16:47 Hold Purple Top aPTT Heparin Protocol 82.8 H D POC Glucose 300 H 374 H* C. difficile Tox B Gene C. difficile Toxin A&B C. difficile Interpret 03/15/23 03/16/23 03/16/23 23:50 00:37 05:00 Hold Purple Top aPTT Heparin Protocol 64.6 D POC Glucose 283 H C. difficile Tox B Gene POSITIVE A* C. difficile Toxin A&B Positive A* C. difficile Interpret SEE NOTE 03/16/23 03/16/23 03/16/23 06:15 08:07 08:44 Hold Purple Top SEE NOTE aPTT Heparin Protocol 31.9 L D POC Glucose 190 H C. difficile Tox B Gene C. difficile Toxin A&B C. difficile Interpret 03/16/23 10:51 Hold Purple Top aPTT Heparin Protocol POC Glucose 234 H C. difficile Tox B Gene C. difficile Toxin A&B C. difficile Interpret Microbiology Microbiology Results: Microbiology 03/13/23 Unknown Urine Culture - Final Urine clean catch - Clean Catch Midstream Escherichia coli Assessment and Plan (1) Acute hypoxic respiratory failure: Status: Acute (2) Pulmonary embolism: Status: Acute (3) COVID-19: Status: Acute Plan 72-year-old female with pertinent history of CVA with residual right-sided weakness, paroxysmal atrial fibrillation not on anticoagulation, ges-qjnidfd-yxfsdsxfu diabetes mellitus, essential hypertension, mixed hyperlipidemia who was sent to the emergency department for evaluation of dyspnea and hypoxemia. Acute hypoxemic respiratory failure secondary to acute submassive right-sided PE and COVID-19 infection. Off hi flwo Covid 19 with hypoxia, continue Decadrone, add Remdesevir x 3 days PE--On IV heparin, get an echo pending, will transition to PO eliquis in a day later today Sepsis due to acute UTI: Culture pending, continue Rocephin 03/13 Acute metabolic encephalopathy in the setting of above, back to baseline AFib, RVR, resolved. Reason for no anticoagulation not clear. She was admitted to [facility] from 02/07 to 03/02: with the following summery: This is a 72-year-old woman with a history of previous CVA with right hemiparesis, hypertension, type 2 diabetes mellitus, chronic kidney disease stage III, atrial fibrillation, coronary artery disease and ischemic myopathy.? 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 She was discharged.? She returned to [facility] on 01/25/2023 with worsening expressive aphasia she was transferred to [facility] for concern of recurrent stroke and for angiogram/stent.? She was noted to have an acute infarct in the watershed area.? She was found to have right ICA stenosis of 60% and underwent carotid stent on 01/25.? After the stent she was noted to have worsening right upper extremity weakness and right-sided hemiparesis and was value by CT scan for the finding of hemorrhagic conversion vs contast extravasation per neurology.? Patient reinitiated dual antiplatelet therapy.? Given increasing right-sided weakness along with worsening expressive aphasia she was felt to need a course of acute inpatient rehabilitation and she was deemed medically stable and transferred to [facility] unit on 02/07/2023. No mention of why she is not anticoagulated for AFIB and no other contraindication and therefore will start eliquis Acute kidney injury stage I: [facility] record indicated she has stage 3 CKD Hyperkalemia due to JOSEPH: resolved after lokelma Iwe-lybozvc-venhxwrbj diabetes glycemia: BS check , SSI Essential hypertension: Hold antihypertensives in the setting of sepsis and low Bap History of CVA with residual right-sided weakness: On dual antiplatelet therapy and high-intensity statin DNR/DNI need for inpatient: management with covid and PE with hypoxia and on IV hepari Time Spent With Patient Time: Total time managing care of this patient today ____ minutes. Quality Stroke Does the patient have a stroke diagnosis?: No VTE Prior VTE?: No VTE Risk Level:: Medical - moderate - high VTE Device Contraindication: Treatment Not Indicated VTE Drug Contraindication: N/A - Med Ordered
[2023-03-16 11:21] VITALS: BP 112/56; PULSE 87; RESP 20; TEMP 37.7; O2SAT 97
[2023-03-16] MEDS: Digoxin 0.125 MG TABLET PO (11:24)
[2023-03-16] MEDS: Apixaban 5 MG TABLET PO ×2 (11:24→20:56)
--- NOTE | 2023-03-16 11:34 | MHC.CLN ---
F/U PT WITH INCREASED NUTRITION RISK R/T PRESSURE INJURY DIET RX: GRD M/S-APPROPRIATE RECOMMEND ADDING MAGIC CUP TID TO PROMOTE WOUND HEALING SUPP TO PROVIDE 810KCALS, 27G PROTEIN MONITOR PO INTAKE CLOSELY
[2023-03-16] MEDS: levoFLOXacin 250 MG TABLET PO (11:40)
[2023-03-16] MEDS: Fidaxomicin 200 MG TABLET PO ×2 (13:11→20:56)
--- NOTE | 2023-03-16 13:48 | MHC.CM.PN ---
CM STILL AWAITING FOR CONTACTS TO BE UPDATED IN MEDICAL RECORD, PT'S PRIMARY CONTACT AND HEALTH CARE AGENT IS NELLY ROGERS [phone] AND SECONDARY CONTACT SON/ALTERNATE HCP AKIN SUE [phone].
--- NOTE | 2023-03-16 13:50 | MHC.CM.PN ---
Addendum entered by Gabriella Rios RN 03/16/23 14:59: CM ATTEMPTED TO CONTACT HCP SEVERAL TIMES TO DELIVER IMM AND UPDATE ON PLAN FOR W/E DC HOWEVER CM UNABLE TO GET THROUGH D/T PHONE ISSUES AT [facility]. Addendum entered by Gabriella Rios RN 03/16/23 14:50: CM RECEIVED MESSAGE FROM HOSPTALIST PT WILL BE HELD OVERNIGHT, ANTIC DC TO [facility] OVER W/E. Original Note: ANTIC PT WILL BE MEDICALLY CLEARED FOR RETURN TO [facility], PT IS BED HOLD, SNF UPDATED PT NEWLY POSITIVE FOR CDIF AND CONT TO BE AGREEABLE FOR PT RETURN, TRANSPORT PREBOOKED W/SOFY FOR 3:30PM.
[2023-03-16 15:02] LABS: Anion Gap 14 (12-20); Blood Urea Nitrogen 43 mg/dL (9-16); Calcium 8.4 mg/dL (8.4-10.2); Carbon Dioxide 19 mmol/L (22-29); Chloride 99 mmol/L (96-108); Creatinine Clr Calc Pharmacy 33.8; Estimated Glomerular Filt Rate 39; Glucose Random 329 mg/dL (60-115); Potassium 3.9 mmol/L (3.3-5.1); Sodium 128 mmol/L (135-145)
[2023-03-16 15:37] VITALS: BP 121/63; PULSE 70; RESP 19; TEMP 36.5; O2SAT 98
[2023-03-16 17:31] LABS: Glucose, Whole Blood 341 mg/dL (60-115)
[2023-03-16 19:10] VITALS: BP 158/60; PULSE 80; RESP 17; TEMP 36.4; O2SAT 96
[2023-03-17] VITALS: BP 118/57; PULSE 80; RESP 19; TEMP 36.7
[2023-03-17 00:05] LABS: Glucose, Whole Blood 409 mg/dL (60-115)
--- NOTE | 2023-03-17 00:15 | MHC.PIE ---
P.POC 409 I.DR ROSE NOTIFIED.ORDER GIVEN TO GIVE 14 UNITS LISPRO. E.CONT.TO MONITOR
[2023-03-17] MEDS: Insulin Lispro 100 UNIT/ML 3 ML VIAL SUBCUT ×4 (01:12→16:43)
[2023-03-17] MEDS: 0.9 % Sodium Chloride Flush 3 ML SYRINGE IVFLUSH ×3 (01:12→16:43)
[2023-03-17 04:00] VITALS: BP 128/58; PULSE 63; RESP 19; TEMP 36.6; O2SAT 97
[2023-03-17 06:07] LABS: Glucose, Whole Blood 293 mg/dL (60-115)
[2023-03-17 07:48] VITALS: BP 133/60; PULSE 68; RESP 17; TEMP 36.2; O2SAT 98
[2023-03-17 07:52] VITALS: BP 133/60; PULSE 73; RESP 17; TEMP 36.4; O2SAT 98
[2023-03-17] MEDS: Fidaxomicin 200 MG TABLET PO (08:52)
[2023-03-17] MEDS: Apixaban 5 MG TABLET PO (08:53)
[2023-03-17] MEDS: Sodium Bicarbonate 650 MG TABLET 1300 MG PO (08:53)
[2023-03-17] MEDS: Aspirin Enteric Coated 81 MG TABLET.DR PO (08:53)
[2023-03-17] MEDS: Valsartan 40 MG TABLET 20 MG PO (08:53)
[2023-03-17] MEDS: carvediloL 12.5 MG TABLET PO (08:53)
[2023-03-17] MEDS: glipiZIDE 10 MG TABLET PO (08:53)
[2023-03-17] MEDS: dexAMETHasone sod phosphate 4 MG/ML VIAL 6 MG IVPUSH (08:54)
--- NOTE | 2023-03-17 09:48 | P.DS_ITS ---
DS: Providers Provider Date of Service: 03/17/23 Date of admission: 03/13/23 01:32 Primary care physician: Israel Figueredo MD Consults: 03/13/23 03:26 Consult to Cardiology Routine Consulting Provider: [facility] Cardiovascular Services Reason for consultation: afib with rvr DS: Diagnosis Discharge Diagnosis (1) Acute hypoxic respiratory failure: Status: Acute (2) Pulmonary embolism: Status: Acute (3) COVID-19: Status: Acute DS: Summary Hospital Course Hospital Course: Admission HPI Chief Complaint: Dyspnea This is a 72-year-old female with pertinent history of CVA with residual right- sided weakness, paroxysmal atrial fibrillation not on anticoagulation, pqd-bcghdky-mswbfzrtu diabetes mellitus, essential hypertension, mixed hyperlipidemia who was sent to the emergency department for evaluation of dyspnea and hypoxemia. Patient is a poor historian and unable to obtain history from the patient. History obtained from ER provider and chart review. Patient presents for dyspnea and was found saturating 75% on room air. Was placed on NIV by [facility] and brought to the ER. In the emergency department, imaging with PE and patient tested positive for COVID-19. She was found to be in AFib with RVR and started on IV diltiazem which was weaned. UA concerning for UTI. Unable to obtain review of systems Hospital course: The patient initially presented with acute hypoxic respiratory failure, with an oxygen saturation of 75% on room air, necessitating rescue BiPAP therapy. Further evaluation revealed a COVID-19 infection, and a chest CT scan suggested the presence of pulmonary emboli. Consequently, the patient was promptly initiated on IV heparin treatment. COVID-19 management included the administration of Decadron and three days of IV remdesivir. Remarkably, the hypoxia resolved rapidly, and the patient's oxygen saturation levels improved to 98% on room air. The pulmonary embolism was treated with an initial course of IV heparin, which was subsequently transitioned to Eliquis. Other medical issues addressed during the hospital stay included atrial fibrillation with rapid ventricular response (AFIB with RVR). This condition was managed with cardiology evaluation , IV cardizem and an initial loading dose of digoxin, with the patient currently maintained on a regimen of digoxin 0.125 mg every other day, in addition to continuing Coreg home dose. Notably, the patient had previously not been on anticoagulation, and the reasons for this were unclear. A discussion with the patient's son did not provide conclusive information. In January, when the patient was being treated for a [place] [facility] a carotid stent was placed. Subsequently, she experienced worsening weakness in the right upper extremity and right-sided hemiparesis, prompting a neurology evaluation that included a CT scan to differentiate between hemorrhagic conversion and contrast extravasation. Given the absence of contraindications, the decision has been made to continue anticoagulation therapy at this time. Cdiff--she was having diarrhea before in, tested positive for cdiff and started on Dificid and to be treated for 10 days Hyperkalemia--resolved with Lokelma Hyponatremia--She has chronic hyponatremia in the range of 128 to 130 JOSEPH on CKD--resolved with IVF UTI--E.coli sensitive to Levaqin will treat for 5 days Dispo: to return to SNF Time Spent with Patient Time attestation: Total time managing care of this patient today ____ minutes. Discharge coordination time: Greater than 30 minutes Quality: Safe Use of Opioids Does Pt have an Active Cancer Diagnosis on the Problem List?: No Quality: Stroke Does the patient have a stroke diagnosis?: No Physical Exam Vital Signs: Vital Signs: Last Vital Signs Temp 97.5 F 03/17/23 07:52 Pulse 73 03/17/23 07:52 Resp 17 03/17/23 07:52 BP 133/60 03/17/23 07:52 Pulse Ox 98 03/17/23 07:52 O2 Del Method Room Air 03/17/23 07:52 O2 Flow Rate 97 03/17/23 00:00 Oxygen Flow Rate 5 03/12/23 22:55 BMI result Body Mass Index 22.6 DS: Data Data Completed and Pending Labs on day of discharge: Laboratory Results - last 24 hr 03/16/23 03/16/23 03/16/23 10:51 13:48 17:28 Sodium 128 L Potassium 3.9 Chloride 99 Carbon Dioxide 19 L Anion Gap 14 BUN 43 H Creatinine 1.33 Estim Creat Clear Calc 33.8 Estimated GFR 39 POC Glucose 234 H 341 H Random Glucose 329 H Calcium 8.4 03/17/23 03/17/23 00:02 06:03 Sodium Potassium Chloride Carbon Dioxide Anion Gap BUN Creatinine Estim Creat Clear Calc Estimated GFR POC Glucose 409 H* 293 H Random Glucose Calcium Preliminary micro results at discharge 03/12/23 23:43 Blood Culture - Preliminary Blood - Venous No growth after 48 hours. 03/12/23 23:43 Blood Culture - Preliminary Blood - Venous No growth after 48 hours. Discharge Plan Discharge Anticipated Discharge Date/Time: 03/17/23 09:45 Patient Disposition: Xfer SNF Discharge Diagnosis: Pulmonary embolism, Covid 19 Referrals: [facility] [Outside] - 1 Day (SHORT TERM REHAB) Israel Figueredo MD [Primary Care Provider] - 1 Week Discharge Medications: New Dificid 200 mg Tablet 200 mg PO BID Qty: 17 0RF levofloxacin 250 mg Tablet 250 mg PO Q24H Qty: 3 0RF Eliquis 5 mg Tablet 5 mg PO BID Qty: 60 0RF Continued potassium chloride 10 mEq Capsule, Extended Release 40 meq PO DAILY carvedilol 12.5 mg Tablet 12.5 mg PO BID Rx Instructions: must administer with a meal/food glipizide 10 mg Tablet 10 mg PO DAILY melatonin 3 mg Tablet 3 mg PO BEDTIME PRN (Reason: Sleep) aspirin 81 mg Tablet,Delayed Release (Dr/Ec) 81 mg PO DAILY sodium bicarbonate 650 mg Tablet 1,300 mg PO DAILY amlodipine 10 mg tablet 10 mg PO DAILY insulin lispro [Humalog U-100 Insulin] 100 unit/mL Solution 4 unit SUBCUT BID@1130,1630 insulin lispro [Humalog U-100 Insulin] 100 unit/mL Solution 10 unit SUBCUT QAM insulin lispro [Humalog U-100 Insulin] 100 unit/mL Solution 5 unit SUBCUT BEDTIME insulin glargine [Lantus Solostar U-100 Insulin] 100 unit/mL (3 mL) Insulin Pen 5 unit SUBCUT DAILY Discontinued clopidogrel 75 mg tablet 75 mg PO DAILY Discharge Orders: Discharge Order (Routine); Ordered 03/17/23 Ordered By: Tom Carpenter Diet: Advance to usual diet Activity on Discharge: As tolerated Stand Alone Forms: Patient Portal Discharge page Care Plan Goals: recovery from PE and covid Health Concerns: pulmonary embolism, covid Plan of Treatment: take levaquin for UTI takei Eliquis for pulmonary embolism and Atrial fibrilation stop Plavix while taking eliquis Assessment: As above Discharge Date/Time: 03/17/23 17:00
--- NOTE | 2023-03-17 10:02 | HO.PM.IMPN ---
Subjective Subjective Date of Service: 03/17/23 Interval History: No new issues, O2 sat is within normal off O2 Physical Exam Vital Signs: Vital Signs: Last Vital Signs Temp 97.5 F 03/17/23 07:52 Pulse 73 03/17/23 07:52 Resp 17 03/17/23 07:52 BP 133/60 03/17/23 07:52 Pulse Ox 98 03/17/23 07:52 O2 Del Method Room Air 03/17/23 07:52 O2 Flow Rate 97 03/17/23 00:00 Oxygen Flow Rate 5 03/12/23 22:55 BMI result Body Mass Index 22.6 Const: Other: General:No distress Resp: CTA bilateral CVS: S1,S2,RRR GI: +BS, NT, no distention Skin: No rash Neuro: motor grossly intact Psych: appropriate affect Objective Data Active Medications Acetaminophen (Acetaminophen 325 Mg Tablet) 650 mg PO Q6H PRN PRN Reason: Pain, Mild (Pain Scale 1-3) Acetaminophen (Acetaminophen Supp 650 Mg Supp.Rect) 650 mg [place] Q6H PRN PRN Reason: Pain, Mild (Pain Scale 1-3) Apixaban (Apixaban 5 Mg Tablet) 5 mg PO BID [facility] Last Admin: 03/17/23 08:53 Dose: 5 mg Documented By: ALEX Aspirin (Aspirin Enteric Coated 81 Mg Tablet.) 81 mg PO DAILY [facility] Last Admin: 03/17/23 08:53 Dose: 81 mg Documented By: ALEX Carvedilol (Carvedilol 12.5 Mg Tablet) 12.5 mg PO BID [facility]; Protocol Last Admin: 03/17/23 08:53 Dose: 12.5 mg Documented By: ALEX Dexamethasone Sodium Phosphate (Dexamethasone Sod Phosphate 4 Mg/Ml Vial) 6 mg IVPUSH DAILY [facility] Last Admin: 03/17/23 08:54 Dose: 6 mg Documented By: ALEX Dextrose (Dextrose 50 % 25 Gm/50 Ml Syringe) 25 gm IVPUSH Q15M PRN; Protocol PRN Reason: per Hypoglycemia Standing Ord. Digoxin (Digoxin 0.125 Mg Tablet) 0.125 mg PO Q2D [facility] Last Admin: 03/16/23 11:24 Dose: 0.125 mg Documented By: SAMRA Fidaxomicin (Fidaxomicin 200 Mg Tablet) 200 mg PO BID [facility] Last Admin: 03/17/23 08:52 Dose: 200 mg Documented By: ALEX Glipizide (Glipizide 10 Mg Tablet) 10 mg PO DAILY [facility] Last Admin: 03/17/23 08:53 Dose: 10 mg Documented By: ALEX Glucose (Glucose Gel 15 Gm Gel..Gram.) 15 gm PO Q15M PRN; Protocol PRN Reason: per Hypoglycemia Standing Ord. Insulin Human Lispro (Insulin Lispro 100 Unit/Ml 3 Ml Vial) 0 unit SUBCUT Q6H [facility]; Protocol Last Admin: 03/17/23 06:18 Dose: 6 unit Documented By: LIANE Levofloxacin (Levofloxacin 250 Mg Tablet) 250 mg PO Q24H [facility] Last Admin: 03/16/23 11:40 Dose: 250 mg Documented By: SAMRA Melatonin (Melatonin 3 Mg Tablet) 6 mg PO BEDTIME PRN PRN Reason: Insomnia Last Admin: 03/13/23 20:53 Dose: 6 mg Documented By: COURTNEY Melatonin (Melatonin 3 Mg Tablet) 3 mg PO BEDTIME PRN PRN Reason: Sleep Ondansetron HCl (Ondansetron Hcl 4 Mg/2 Ml Vial) 4 mg IVPUSH Q8H PRN PRN Reason: Nausea and Vomiting Sodium Bicarbonate (Sodium Bicarbonate 650 Mg Tablet) 1,300 mg PO DAILY [facility] Last Admin: 03/17/23 08:53 Dose: 1,300 mg Documented By: ALEX Sodium Chloride (0.9 % Sodium Chloride Flush 3 Ml Syringe) 3 [facility] Last Admin: 03/17/23 08:54 Dose: 3 ml Documented By: ALEX Sodium Zirconium Cyclosilicate (Sodium Zirconium Cyclosilicate 10 Gm Powd.Pack) 10 gm PO DAILY [facility] Last Admin: 03/17/23 08:54 Dose: Not Given Documented By: ALEX Non-Admin Reason: Patient Refused Valsartan (Valsartan 40 Mg Tablet) 20 mg PO BID [facility]; Protocol Last Admin: 03/17/23 08:53 Dose: 20 mg Documented By: ALEX Labs 03/15/23 09:29 03/16/23 13:48 Labs: Laboratory Results - last 24 hr 10/03/16/23 03/16/23 10:51 13:48 17:28 Anion Gap 14 Estim Creat Clear Calc 33.8 Estimated GFR 39 POC Glucose 234 H 341 H Random Glucose 329 H Calcium 8.4 03/17/23 03/17/23 00:02 06:03 Anion Gap Estim Creat Clear Calc Estimated GFR POC Glucose 409 H* 293 H Random Glucose Calcium Microbiology Microbiology Results: Microbiology 03/13/23 Unknown Urine Culture - Final Urine clean catch - Clean Catch Midstream Escherichia coli Assessment and Plan (1) Acute hypoxic respiratory failure: Status: Acute (2) Pulmonary embolism: Status: Acute (3) COVID-19: Status: Acute Plan 72-year-old female with pertinent history of CVA with residual right-sided weakness, paroxysmal atrial fibrillation not on anticoagulation, dbm-urwbohq-hoqqiuyps diabetes mellitus, essential hypertension, mixed hyperlipidemia who was sent to the emergency department for evaluation of dyspnea and hypoxemia. Acute hypoxemic respiratory failure secondary to acute submassive right-sided PE and COVID-19 infection. Off hi flwo Covid 19 with hypoxia, continue Decadrone, add Remdesevir x 3 days PE--On IV heparin, get an echo pending, will transition to PO eliquis in a day later today Sepsis due to acute UTI: Culture pending, continue Rocephin 03/13 Acute metabolic encephalopathy in the setting of above, back to baseline AFib, RVR, resolved. Reason for no anticoagulation not clear. She was admitted to [facility] from 02/07 to 03/02: with the following summery: This is a 72-year-old woman with a history of previous CVA with right hemiparesis, hypertension, type 2 diabetes mellitus, chronic kidney disease stage III, atrial fibrillation, coronary artery disease and ischemic myopathy.? She was recently mated to [facility] on 831 through 01 19 with visual changes and a left ICA occlusion along with multiple left hemisphere lesions.? She was discharged.? She returned to [facility] on 01/25/2023 with worsening expressive aphasia she was transferred to [facility] for concern of recurrent stroke and for angiogram/stent.? She was noted to have an acute infarct in the watershed area.? She was found to have right ICA stenosis of 60% and underwent carotid stent on 01/25.? After the stent she was noted to have worsening right upper extremity weakness and right-sided hemiparesis and was value by CT scan for the finding of hemorrhagic conversion vs contast extravasation per neurology.? Patient reinitiated dual antiplatelet therapy.? Given increasing right-sided weakness along with worsening expressive aphasia she was felt to need a course of acute inpatient rehabilitation and she was deemed medically stable and transferred to [place] rehabilitation unit on 02/07/2023. No mention of why she is not anticoagulated for AFIB and no other contraindication and therefore will start eliquis Acute kidney injury stage I: [facility] record indicated she has stage 3 CKD Hyperkalemia due to JOSEPH: resolved after lokelma Gpg-aczaeud-hyhlmzred diabetes glycemia: BS check , SSI Essential hypertension: Hold antihypertensives in the setting of sepsis and low Bap History of CVA with residual right-sided weakness: On dual antiplatelet therapy and high-intensity statin DNR/DNI need for inpatient: management with covid and PE with hypoxia and on eliquis possible dc today Time Spent With Patient Time: Total time managing care of this patient today ____ minutes. Quality Stroke Does the patient have a stroke diagnosis?: No VTE Prior VTE?: No VTE Risk Level:: Medical - moderate - high VTE Device Contraindication: Treatment Not Indicated VTE Drug Contraindication: N/A - Med Ordered
[2023-03-17 10:39] LABS: Anion Gap 17 (12-20); Blood Urea Nitrogen 48 mg/dL (9-16); Calcium 8.8 mg/dL (8.4-10.2); Carbon Dioxide 20 mmol/L (22-29); Chloride 96 mmol/L (96-108); Estimated Glomerular Filt Rate 37; Glucose Random 331 mg/dL (60-115); Potassium 4.6 mmol/L (3.3-5.1); Sodium 128 mmol/L (135-145)
--- NOTE | 2023-03-17 11:17 | MHC.CM.PN ---
IMM 03/17/23 Patient is discharged back to [facility]. 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 A VM was left for HCP/Haily Driver.
[2023-03-17 11:40] VITALS: BP 130/69; PULSE 71; RESP 18; TEMP 36.4; O2SAT 96
[2023-03-17 11:45] LABS: Glucose, Whole Blood 338 mg/dL (60-115)
[2023-03-17] MEDS: levoFLOXacin 250 MG TABLET PO (11:50)
[2023-03-17 15:53] VITALS: BP 137/63; PULSE 92; RESP 18; TEMP 36.2; O2SAT 96
[2023-03-17 16:37] LABS: Glucose, Whole Blood 408 mg/dL (60-115)
--- NOTE | 2023-03-24 00:10 | P.CDIM_ITS ---
PROVIDER RESPONSE TEXT: To clarify, the appropriate diagnosis supported by the clinical indicators: Sepsis due to UTI QUERY TEXT: PHYSICIAN'S DOCUMENTATION REQUEST Date of Query: 03/21/2023 05:37 AM EDT Patient Name: Brenna Driver Admit Date: 03/13/2023 RETROSPECTIVE QUERY Dear Tom Guerrero, A review of the medical record indicates additional documentation may be needed. Please review below and update the documentation accordingly Clinical indicators: PN: Sepsis due to UTI (E coli) H&P: Sepsis due to UTI, resuscitated with IV cystalloids, initiating empiric IV Rocephin WBC 22.2 LA 2.4 HR 165 RR 35/28 BP 117/57 L Sepsis Systemic manifestations of infection, with 2 or more SIRS criteria which include: Fever > 100.4?F or hypothermia < 96.8?F Leukocytosis WBC > 12,000 or leukopenia, WBC < 4,000, or > 10% bands Tachycardia- > 90 beats/minute Tachypnea- RR > 20 breaths/minute or PaCO2 < 32mmHg Consistency of a diagnosis: Sepsis Sepsis due to UTI Other please specify Other (explain)Clinically unable to determine (explain)Thank you, Donna Thomas, CCS, CDIS Use of terms such as suspected, likely, concern for, or probable (associated with a specific diagnosi s that is being evaluated, monitored, or treated as if it exists) are acceptable and can be coded in the inpatient se tting, when documented at the time of discharge. Please use your independent medical judgment in providing your response. THIS QUERY IS PART OF THE PERMANENT MEDICAL RECORD
== END 2023-03-17 17:00 | disposition skilled nursing facility (03) | DRG 871 ==
LOC: HO.ED 03-13 01:33 → HO.EDOVER 03-13 01:46 → HO.IMC 03-13 19:21
PROVIDERS: Admitting Provider Student in an Organized Health Care Education/Training Program; Emergency Provider Internal Medicine; PCP Family Medicine; Visit Provider Internal Medicine
DX: A41.9 Sepsis, unspecified organism (principal); G93.41 Metabolic encephalopathy; I26.99 Other pulmonary embolism without acute cor pulmonale; J96.01 Acute respiratory failure with hypoxia; U07.1 COVID-19; N39.0 Urinary tract infection, site not specified; I69.351 Hemiplegia and hemiparesis following cerebral infarction affecting right dominant side; J91.8 Pleural effusion in other conditions classified elsewhere; N17.9 Acute kidney failure, unspecified; E87.1 Hypo-osmolality and hyponatremia; I42.9 Cardiomyopathy, unspecified; A04.72 Enterocolitis due to Clostridium difficile, not specified as recurrent; Z66 Do not resuscitate; L89.312 Pressure ulcer of right buttock, stage 2; I12.9 Hypertensive chronic kidney disease with stage 1 through stage 4 chronic kidney disease, or unspecified chronic kidney disease; N18.30 Chronic kidney disease, stage 3 unspecified; E11.22 Type 2 diabetes mellitus with diabetic chronic kidney disease; B96.20 Unspecified Escherichia coli [E. coli] as the cause of diseases classified elsewhere; E11.65 Type 2 diabetes mellitus with hyperglycemia; E87.5 Hyperkalemia; Z79.4 Long term (current) use of insulin; Z79.82 Long term (current) use of aspirin; Z79.84 Long term (current) use of oral hypoglycemic drugs; Z79.899 Other long term (current) drug therapy
CPT/HCPCS: 0241U; 36415; 71045; 71275; 80048; 80053; 81001; 82803; 82947; 83605; 83735; 83880; 84484; 85025; 85027; 85379; 85610; 85730; 87040; 87086; 87088; 87186; 87324; 87493; 93005; 93306; 99285; J0248; J0613; J0696; J1100; J1160; J1643; J1940; Q9957; Q9967

== ENCOUNTER → 2023-03-13 01:32 | Outpatient (BNV) | payer MEDICARE, SELFPAY | PROVIDERS: Admitting Provider Student in an Organized Health Care Education/Training Program; Emergency Provider Internal Medicine; PCP Family Medicine; Visit Provider Student in an Organized Health Care Education/Training Program | DX: J96.01 Acute respiratory failure with hypoxia (principal); I26.99 Other pulmonary embolism without acute cor pulmonale; U07.1 COVID-19 | CPT/HCPCS: 99223; 99232; 99239; 99499 ==

== ENCOUNTER → 2023-03-13 01:32 | Outpatient (BNV) | payer MEDICARE, SELFPAY | PROVIDERS: Admitting Provider Student in an Organized Health Care Education/Training Program; Emergency Provider Internal Medicine; PCP Family Medicine; Visit Provider Internal Medicine Cardiovascular Disease | DX: I48.91 Unspecified atrial fibrillation (principal); I34.0 Nonrheumatic mitral (valve) insufficiency | CPT/HCPCS: 93306; 99222; 99233 ==

== ENCOUNTER 2023-03-19 10:16 | Outpatient (REF) | payer MEDICARE, SELFPAY | END 2023-03-19 10:17 | disposition home or self-care (01) | LOC: HO.MMNH2L 10:16 | PROVIDERS: Visit Provider Family Medicine | DX: Z13.89 Encounter for screening for other disorder (principal) ==

== ENCOUNTER 2023-06-11 06:36 | Outpatient (REF) | payer MEDICARE, SELFPAY ==
[2023-06-11 06:10] LABS: MANUAL DIFF FLAG NO
[2023-06-11 06:50] LABS: Anion Gap 13 (12-20); Blood Urea Nitrogen 32 mg/dL (9-16); Calcium 9.9 mg/dL (8.4-10.2); Carbon Dioxide 29 mmol/L (22-29); Chloride 98 mmol/L (96-108); Estimated Glomerular Filt Rate 29; Glucose Random 205 mg/dL (60-115); Potassium 3.4 mmol/L (3.3-5.1); Sodium 137 mmol/L (135-145)
[2023-06-11 06:53] LABS: Basophils Absolute Auto 0.1 X10*3/uL (0.0-0.2); Basophils Percent Auto 0.9 % (0-2); Eosinophils Absolute Auto 0.7 X10*3/uL (0.0-0.4); Eosinophils Percent Auto 7.6 % (0-4); Hematocrit 32.9 % (37.0-47.0); Hemoglobin 10.4 g/dl (12.0-16.0); Imm Gran Abs Auto 0.02 X10*3/uL (0.00-0.03); Imm Gran Pct Auto 0.2 % (0.0-0.4); Lymphocytes Absolute Auto 3.1 X10*3/uL (1.2-4.9); Lymphocytes Percent Auto 36.1 % (20-40); Mean Corpuscular HGB Conc 31.6 g/dl (31.0-35.0); Mean Corpuscular Hemoglobin 25.1 pg (27.0-33.0); Mean Corpuscular Volume 79.3 fL (80.0-98.0); Mean Platelet Volume 10.5 fL (9.4-12.3); Monocytes Absolute Auto 0.8 X10*3/uL (0.1-1.2); Monocytes Percent Auto 9.1 % (2-11); Neutrophils Percent Auto 46.1 % (45-73); Platelet Count 318 X10*3/uL (160-400); Red Blood Count 4.15 X10*6/uL (4.20-5.50); Red Cell Distribution Width 13.5 % (11.0-16.0); White Blood Count 8.7 X10*3/uL (4.8-10.8)
== END 2023-06-11 06:37 | disposition home or self-care (01) ==
LOC: HO.MMNH2L 06:36
PROVIDERS: Visit Provider Family Medicine
DX: Z13.89 Encounter for screening for other disorder (principal)
CPT/HCPCS: 36415; 80048; 85025

== ENCOUNTER 2023-06-13 05:59 | Outpatient (REF) | payer MEDICARE, SELFPAY ==
[2023-06-13 06:46] LABS: Anion Gap 15 (12-20); Blood Urea Nitrogen 35 mg/dL (9-16); Calcium 9.8 mg/dL (8.4-10.2); Carbon Dioxide 24 mmol/L (22-29); Chloride 93 mmol/L (96-108); Estimated Glomerular Filt Rate 36; Glucose Random 233 mg/dL (60-115); Potassium 3.9 mmol/L (3.3-5.1); Sodium 128 mmol/L (135-145)
== END 2023-06-13 06:00 | disposition home or self-care (01) ==
LOC: HO.MMNH2L 05:59
PROVIDERS: Visit Provider Family Medicine
DX: Z13.89 Encounter for screening for other disorder (principal)
CPT/HCPCS: 36415; 80048

== ENCOUNTER 2023-06-14 13:27 | Inpatient (IN) | payer MEDICARE, SELFPAY ==
[2023-06-14] VITALS (15 sets, daily range): BP systolic 123–142; BP diastolic 50–69; PULSE 53–149; RESP 14–32; TEMP 36.3–37.4; O2SAT 80–100; BMI 27.4
--- NOTE | ~2023-06-14 | XR_ITS ---
EXAMINATION: XR CHEST CLINICAL INFORMATION: Dyspnea COMPARISON: Chest x-ray March 13, 2023 TECHNIQUE: Frontal portable view of the chest was obtained. 1:46 PM FINDINGS: Dense lung bases due to bilateral pleural effusions with bibasilar consolidation/atelectasis. Low lung volume chest which accentuates the pulmonary vascularity. There is pulmonary vascular congestion and increased lung markings. XR/XR chest 1V IMPRESSION: Congestive heart failure with bilateral pleural effusions and bibasilar consolidation/atelectasis.
--- NOTE | ~2023-06-14 | XR_ITS ---
EXAMINATION: XR CHEST CLINICAL INFORMATION: Hypoxia. COMPARISON: 06/14/2023 TECHNIQUE: AP upright portable view of the chest was obtained. FINDINGS: Diffuse patchy airspace opacities in both lungs are more pronounced as compared to prior. Peripheral interstitial opacities and small bilateral pleural effusions are suspected. Cardiac silhouette is partially obscured, but favored to be enlarged. No pneumothoraces. Bones are osteopenic. Degenerative spondylosis in the thoracic spine with scoliotic curvature. XR/XR chest 1V IMPRESSION: Worsening of the diffuse patchy airspace opacities in both lungs as compared to prior, concerning for worsening pulmonary edema. Multifocal pneumonia is also possible.
--- NOTE | 2023-06-14 13:35 | ECG_ITS ---
Test Reason : DIFF BREATHING Blood Pressure : / mmHG Vent. Rate : 088 BPM Atrial Rate : 088 BPM P-R Int : 156 ms QRS Dur : 154 ms QT Int : 416 ms P-R-T Axes : 049 118 -45 degrees QTc Int : 503 ms Sinus rhythm with Premature atrial complexes Right axis deviation Intra-ventricular conduction delay Abnormal ECG When compared with ECG of 13-MAR-2023 08:01, Sinus rhythm has replaced Atrial fibrillation Vent. rate has decreased BY 45 BPM T wave inversion now evident in Anterior leads Referred By: Cindy Tellez Electronically Signed By:Nicolás Godwin
[2023-06-14] MEDS: Albuterol Sulfate 7.5 MG, Albuterol/Iprat 2.5/0.5MG 3 ML 3 ML INHALE (13:57)
[2023-06-14 14:00] LABS: MANUAL DIFF FLAG NO
--- NOTE | 2023-06-14 14:03 | ED_ITS ---
HPI - SOB/Dyspnea General Chief Complaint: Dyspnea Stated Complaint: DIFF BREATHING,87% ON 8LPM WITH DUONEB PER EMS Time Seen by Provider: 06/14/23 13:27 Source: patient, EMS and old records reviewed Mode of arrival: EMS Limitations: no limitations History of Present Illness HPI Narrative: 73 yo female with PMH of CVA - R sided residual weakness, PAF, NIDDM, HTN, mixed HLD, who was admitted here back in February 2023 for hypoxia found to have PE and COVID (course also E. Coli UTI treated with levofloxacin and C. diff ) - she was started on eliquis which she states she is still taking. She comes in to our ED today with c/o struggling to breathe all night and a productive cough but no pain and no fevers starting before bed. EMS found her in the 70s and she was in the 80s on NRB. She tells me she is a DNR/DNI. She is from [facility]. ECHO at that time showed EF 25-30%. CXR from [facility] states moderate pulm effusions and bilateral patchy opacities patient was not sent with paperwork reportedly yesterday sats were in the 50s but she was given oxygen and her respiratory status worsened overnight after RN from ED called facility when patient arrived without med list or MOLST MD elicited complaint: shortness of breath Pertinent past history: congestive heart failure Onset (ago): day(s) (last night) Context: recent illness Timing: progressively worsening Severity: severe Exacerbating factors: lying flat, exertion and coughing Relieving factors: oxygen and upright position Known history of: congestive heart failure Associated symptoms: cough and sputum production Treatment prior to arrival: oxygen Related Data Home Medications Medication Instructions Recorded Confirmed amlodipine 10 mg tablet 10 mg PO DAILY 03/13/23 03/13/23 aspirin 81 mg tablet,delayed 81 mg PO DAILY 03/13/23 03/13/23 release carvedilol 12.5 mg tablet 12.5 mg PO BID 03/13/23 03/13/23 glipizide 10 mg tablet 10 mg PO DAILY 03/13/23 03/13/23 insulin glargine 100 unit/mL (3 5 unit subcut DAILY 03/13/23 03/13/23 mL) subcutaneous pen (Lantus Solostar U-100 Insulin) insulin lispro 100 unit/mL 4 unit subcut BID@1130,1630 03/13/23 03/13/23 subcutaneous solution (Humalog U-100 Insulin) insulin lispro 100 unit/mL 5 unit subcut BEDTIME 03/13/23 03/13/23 subcutaneous solution (Humalog U-100 Insulin) insulin lispro 100 unit/mL 10 unit subcut QAM 03/13/23 03/13/23 subcutaneous solution (Humalog U-100 Insulin) melatonin 3 mg tablet 3 mg PO BEDTIME PRN Sleep 03/13/23 03/13/23 potassium chloride 10 mEq 40 meq PO DAILY 03/13/23 03/13/23 capsule,extended release sodium bicarbonate 650 mg tablet 1,300 mg PO DAILY 03/13/23 03/13/23 Previous Rx's Medication Instructions Recorded apixaban 5 mg tablet (Eliquis) 5 mg PO BID #60 tabs 03/17/23 fidaxomicin 200 mg tablet (Dificid) 200 mg PO BID #17 tabs 03/17/23 levofloxacin 250 mg tablet 250 mg PO Q24H #3 tabs 03/17/23 Allergies Allergy/AdvReac Type Severity Reaction Status Date / Time lisinopril Allergy Unknown Unknown Verified 03/12/23 23:14 atorvastatin AdvReac Unknown Unknown Verified 03/12/23 23:14 metformin AdvReac Unknown Unknown Verified 03/12/23 23:14 spironolactone AdvReac Unknown Unknown Verified 03/12/23 23:14 Review of Systems 2 Review of Systems: Constitutional : No Fever, No Chills ENT/Mouth : No sore throat, No Rhinorrhea, No Swallowing Difficulty Eyes: No Eye Pain, No Swelling, No Redness Cardiovascular : No Chest Pain, positive SOB, pos Orthopnea, positive Edema Respiratory : pos Cough, pos Sputum, No Wheezing, positive dyspnea Gastrointestinal : No Nausea, No Vomiting, No Diarrhea, No abdominal Pain, No Hematochezia, No Melena Genitourinary : No Dysuria, No Urinary Frequency, No Hematuria Musculoskeletal : No joint pain, No Myalgias Skin : No Skin Lesions, No rash Neuro : No Weakness, No Numbness, No Dizziness, No Headache Psych : No Anxiety/Panic, No Depression All other systems reviewed and are negative PMFSH Past Medical History Attestation statement: The following information was validated with the patient. Source: old records reviewed Medical History Atrial fibrillation with rapid ventricular response Essential thrombocythemia Rheumatic valvular disease Hyperlipemia HTN (hypertension) Atrial fibrillation CKD (chronic kidney disease) stage 3, GFR 30-59 ml/min Diabetes mellitus Aphasia Chronic ischemic left MCA stroke Social History Social History Household Members: Friend(s) Housing: House Do you presently have visiting nurse or other home services: No Patient Tobacco Use Status: Never used Tobacco Smoked in Last 30 Days: No Use of substances other than those prescribed or required for medical reasons: No Advance Directives: Yes Advance Directives on File: Yes Advance Directives Date on File: 03/13/23 service: No Physical Exam 2 Vital Signs: Vital Signs: Last Vital Signs Temp 99.2 F 06/14/23 16:00 Pulse 92 06/14/23 16:55 Resp 26 H 06/14/23 16:00 BP 123/52 L 06/14/23 16:00 Pulse Ox 93 06/14/23 16:55 O2 Del Method High Flow Nasal C annula 06/14/23 16:55 O2 Flow Rate 40 06/14/23 16:55 FiO2 58 06/14/23 16:55 Oxygen Flow Rate 40 06/14/23 13:38 BMI result Body Mass Index 27.4 Appearance: Alert. Oriented X3. moderate acute distress. Eyes: Pupils equal, round and reactive to light. ENT: Pharynx normal. Neck: Normal inspection. Neck supple. CVS: Normal heart rate and rhythm. Pulses normal. Respiratory: Moderate respiratory distress - tachypnea, labored, retractions, hypoxic, rales in both bases - diminished throughout. Abdomen: Soft and nontender. Skin: Skin warm and dry. pale skin color. Normal skin turgor. Extremities: 1+ pitting R lower extremity edema. No calf ttp Neuro: Oriented X 3. R sided chronic weakness. No sensory deficit. Course Course Course Narrative: IV lasix ordered BNP higher than baseline much improved on high flow Reevaluation(s) Reevaluation #1: TROP NOT OVER DELTA Medications Administered Discontinued Medications Generic Name Dose Route Start Last Admin Trade Name Freq PRN Reason Stop Dose Admin Albuterol Sulfate 7.5 mg/ 0 mg 06/14/23 13:55 06/14/23 13:57 Albuterol/Ipratropium 3 ml INHALE 06/14/23 13:56 1 each ONCE ONE Administration Furosemide 40 mg 06/14/23 14:54 06/14/23 15:04 Furosemide 40 Mg/4 Ml Vial IVPUSH 06/14/23 14:55 40 mg STAT STA Administration Protocol Cefepime HCl 1 gm/ Sodium 50 mls @ 100 mls/hr 06/14/23 13:59 06/14/23 16:32 Chloride IV 06/14/23 14:28 Infused ONCE ONE Infusion Vancomycin HCl 1,500 mg/ 500 mls @ 333.333 mls/hr 06/14/23 15:15 06/14/23 16:32 Sodium Chloride IV 06/14/23 16:44 Infused ONCE ONE Infusion Sodium Chloride 250 mls @ 250 mls/hr 06/14/23 15:15 06/14/23 16:37 Ns IV 06/14/23 16:14 Infused .Q1H STONE Infusion Methylprednisolone Sodium Succinate 60 mg 06/14/23 13:34 06/14/23 14:07 Methylprednisolone Sod Succ 125 Mg/2 Ml Vial IVPUSH 06/14/23 13:35 60 mg ONCE ONE Administration Medical Decision Making Medical Decision Making MDM Narrative: 73 yo female with PMH of CVA - R sided residual weakness, PAF, NIDDM, HTN, mixed HLD, who was admitted here back in February 2023 for hypoxia found to have PE and COVID on eliquis here with c/o worsening dyspnea and hypoxia starting last night without chest pain - prehospital CXR concerning for pneumonia. At this time labs, nebs, will try high flow O2 - she tells me she is DNR/DNI. She will get nebs, steroids, and start on cefepime and vancomycin for HCAP until MRSA screen negative. Possible diuretics though isolated swelling on R leg and arm (old from CVA). Planned admit. Differential Diagnosis Differential Diagnoses: The differential diagnosis associated with the presentation includes pneumonia, CHF, viral syndrome doubt VTE given eliquis use Admission/Observation Consideration of admission/observation: Escalation of care including admission/observation considered admit for further management Consult Healthcare Provider Management of the patient was discussed with: Hospitalist (will admit improved on high flow) Lab Data [facility] Lab Attestation statement: I reviewed the patient's lab results. H/H at baseline 06/14/23 13:53 06/14/23 14:17 Labs: Lab Results 06/14/23 06/14/23 06/14/23 Range/Units 13:53 13:54 14:17 WBC 17.5 H (4.8-10.8) X10*3/uL RBC 4.25 (4.20-5.50) X10*6/uL Hgb 10.8 L (12.0-16.0) g/dl Hct 32.3 L (37.0-47.0) % MCV 76.0 L (80.0-98.0) fL MCH 25.4 L (27.0-33.0) pg MCHC 33.4 (31.0-35.0) g/dl RDW 13.8 (11.0-16.0) % Plt Count 386 (160-400) X10*3/uL MPV 10.2 (9.4-12.3) fL Immature Gran % (Auto) 0.5 H (0.0-0.4) % Neut % (Auto) 86.6 H (45-73) % Lymph % (Auto) 7.7 L (20-40) % [place] % (Auto) 4.9 (2-11) % Eos % (Auto) 0.1 (0-4) % Baso % (Auto) 0.2 (0-2) % Lymph # (Auto) 1.4 (1.2-4.9) X10*3/uL [place] # (Auto) 0.9 (0.1-1.2) X10*3/uL Eos # (Auto) 0.0 (0.0-0.4) X10*3/uL Baso # (Auto) 0.0 (0.0-0.2) X10*3/uL Abs Immat Gran (auto) 0.09 H (0.00-0.03) X10*3/uL Absolute Neuts (auto) 15.1 H (2.0-8.3) x10*3/uL Absolute Nucleated RBC 0.000 (0.0-0.012) X10*3/uL Nucleated RBC % (auto) 0.0 (0.0-0.2) /100WBC PT 25.5 H D (11.1-13.3) SEC INR 2.1 H (0.9-1.1) VBG pH (7.32-7.43) VBG pCO2 mmHg VBG pO2 mmHg VBG HCO3 (22-26) mmol/L VBG O2 Saturation % VBG Base Excess mmol/L Sodium 131 L (135-145) mmol/L Potassium 4.3 (3.3-5.1) mmol/L Chloride 92 L (96-108) mmol/L Carbon Dioxide 26 (22-29) mmol/L Anion Gap 17 (12-20) BUN 45 H (9-16) mg/dL Creatinine 2.09 H (0.5-1.4) mg/dL Estim Creat Clear Calc 20.5 Estimated GFR 23 Random Glucose 192 H (60-115) mg/dL Lactic Acid 3.1 H* (0.5-2.0) mmol/L Calcium 11.1 H D (8.4-10.2) mg/dL Magnesium 2.1 (1.6-2.6) mg/dL Total Bilirubin 1.2 H (0.0-1.0) mg/dL Direct Bilirubin 0.4 (0.0-0.5) mg/dL AST 13 (5-31) U/L ALT 7 (0-31) U/L Alkaline Phosphatase 88 (39-117) U/L Troponin I High Sens 57.1 H* (<3.5-17.0) ng/L B-Natriuretic Peptide 2178 H (<100) pg/mL Total Protein 7.8 (6.5-8.0) g/dL Albumin 3.6 (3.5-5.0) g/dL Lipase 6 L (8-78) U/L Procalcitonin 1.35 ng/mL Urine Color Urine Appearance Urine pH (5.0-9.0) Ur Specific [place] (1.005-1.025) Urine Protein (Neg-Trace) mg/dL Urine Glucose (UA) (Negative) mg/dL Urine Ketones (Negative) mg/dL Urine Blood (Negative) Urine Nitrite (Negative) Ur Leukocyte Esterase (Negative) Urine RBC (0-2) /HPF Urine WBC (0-5) /HPF Ur Squamous Epith Cells (0-2) /HPF Urine Bacteria (None Seen) Hyaline Casts (0-2) /LPF Nasal Screen MRSA (PCR) (Negative) Nasal S. aureus Screen (Negative) Nasal MRSA/S.aureus Interp Digoxin < 0.2 L (0.8-2.0) ng/mL COVID-19 ([facility]O) Negative (Negative) COVID-19 Clin Com See Note 06/14/23 06/14/23 06/14/23 Range/Units 14:21 14:22 14:53 WBC (4.8-10.8) X10*3/uL RBC (4.20-5.50) X10*6/uL Hgb (12.0-16.0) g/dl Hct (37.0-47.0) % MCV (80.0-98.0) fL MCH (27.0-33.0) pg MCHC (31.0-35.0) g/dl RDW (11.0-16.0) % Plt Count (160-400) X10*3/uL MPV (9.4-12.3) fL Immature Gran % (Auto) (0.0-0.4) % Neut % (Auto) (45-73) % Lymph % (Auto) (20-40) % [place] % (Auto) (2-11) % Eos % (Auto) (0-4) % Baso % (Auto) (0-2) % Lymph # (Auto) (1.2-4.9) X10*3/uL [place] # (Auto) (0.1-1.2) X10*3/uL Eos # (Auto) (0.0-0.4) X10*3/uL Baso # (Auto) (0.0-0.2) X10*3/uL Abs Immat Gran (auto) (0.00-0.03) X10*3/uL Absolute Neuts (auto) (2.0-8.3) x10*3/uL Absolute Nucleated RBC (0.0-0.012) X10*3/uL Nucleated RBC % (auto) (0.0-0.2) /100WBC PT (11.1-13.3) SEC INR (0.9-1.1) VBG pH 7.53 H (7.32-7.43) VBG pCO2 32 mmHg VBG pO2 73 mmHg VBG HCO3 27 H (22-26) mmol/L VBG O2 Saturation 97.0 % VBG Base Excess 5.3 mmol/L Sodium (135-145) mmol/L Potassium (3.3-5.1) mmol/L Chloride (96-108) mmol/L Carbon Dioxide (22-29) mmol/L Anion Gap (12-20) BUN (9-16) mg/dL Creatinine (0.5-1.4) mg/dL Estim Creat Clear Calc Estimated GFR Random Glucose (60-115) mg/dL Lactic Acid (0.5-2.0) mmol/L Calcium (8.4-10.2) mg/dL Magnesium (1.6-2.6) mg/dL Total Bilirubin (0.0-1.0) mg/dL Direct Bilirubin (0.0-0.5) mg/dL AST (5-31) U/L ALT (0-31) U/L Alkaline Phosphatase (39-117) U/L Troponin I High Sens (<3.5-17.0) ng/L B-Natriuretic Peptide (<100) pg/mL Total Protein (6.5-8.0) g/dL Albumin (3.5-5.0) g/dL Lipase (8-78) U/L Procalcitonin ng/mL Urine Color Yellow Urine Appearance Hazy Urine pH 5.5 (5.0-9.0) Ur Specific [place] 1.015 (1.005-1.025) Urine Protein Negative (Neg-Trace) mg/dL Urine Glucose (UA) 100 H (Negative) mg/dL Urine Ketones Negative (Negative) mg/dL Urine Blood Moderate (2+) H (Negative) Urine Nitrite Negative (Negative) Ur Leukocyte Esterase Large (3+) H (Negative) Urine RBC 0-2 (0-2) /HPF Urine WBC 11-20 (0-5) /HPF Ur Squamous Epith Cells 0-2 (0-2) /HPF Urine Bacteria 4+ (None Seen) Hyaline Casts 0-2 (0-2) /LPF Nasal Screen MRSA (PCR) POSITIVE A (Negative) Nasal S. aureus Screen POSITIVE A (Negative) Nasal MRSA/S.aureus Interp SEE NOTE Digoxin (0.8-2.0) ng/mL COVID-19 ([facility]O) (Negative) COVID-19 Clin Com Independent Interpretation I performed an independent interpretation of an: EKG and Plain X-Ray (R sided opacity effusion noted) Interpretation: Rate: 88 Rhythm: irregular [place]: left LBBB ST T wave : inverted T waves lateral leads, no CHRISTY qTC: normal prior studies: no sig change from priors The study has been interpreted contemporaneously by me. . Radiology Impression Discussion of test interpretation with radiology: I have reviewed the radiologist's reading. Independent Historian Clinical information obtained from an independent historian. History obtained from or confirmed by: EMS External Record Review External record reviewed: Inpatient record Procedures EJ/Peripheral Line Arm L: Time Out Performed: Yes Skin Cleansed in Sterile Fashion: Yes Size (gauge): 20 IV Secured and Dressing Applied: Yes Patient Tolerated Procedure: well and no complications Critical Care Time Critical Care Time Critical Care Time: Yes Total Critical Care Time: 60 Attestation: respiratory interventions, high flow O2, repeat assessments, review of records I attest to this time spent taking care of the patient Discharge Plan Discharge Clinical Impression: Acute on chronic clinical systolic heart failure Pneumonia Qualifiers: Pneumonia type: due to unspecified organism Laterality: right Lung location: l ower lobe of lung Qualified Code(s): J18.9 - Pneumonia, unspecified organism Respiratory failure Qualifiers: Chronicity: acute Respiratory failure complication: hypoxia Qualified Code(s): J96.01 - Acute respiratory failure with hypoxia Elevated WBC count Qualifiers: Leukocytosis type: unspecified Qualified Code(s): D72.829 - Elevated white blood cell count, unspecified Patient Disposition: Admitted As Inpatient
[2023-06-14 14:05] LABS: Basophils Percent Auto 0.2 % (0-2); Eosinophils Percent Auto 0.1 % (0-4); Hematocrit 32.3 % (37.0-47.0); Hemoglobin 10.8 g/dl (12.0-16.0); Imm Gran Abs Auto 0.09 X10*3/uL (0.00-0.03); Imm Gran Pct Auto 0.5 % (0.0-0.4); Lymphocytes Absolute Auto 1.4 X10*3/uL (1.2-4.9); Lymphocytes Percent Auto 7.7 % (20-40); Mean Corpuscular HGB Conc 33.4 g/dl (31.0-35.0); Mean Corpuscular Hemoglobin 25.4 pg (27.0-33.0); Mean Platelet Volume 10.2 fL (9.4-12.3); Monocytes Absolute Auto 0.9 X10*3/uL (0.1-1.2); Monocytes Percent Auto 4.9 % (2-11); Neutrophils Absolute Auto 15.1 x10*3/uL (2.0-8.3); Neutrophils Percent Auto 86.6 % (45-73); Platelet Count 386 X10*3/uL (160-400); Red Blood Count 4.25 X10*6/uL (4.20-5.50); Red Cell Distribution Width 13.8 % (11.0-16.0); White Blood Count 17.5 X10*3/uL (4.8-10.8)
[2023-06-14] MEDS: methylPREDNISolone Sod Succ 125 MG/2 ML VIAL 60 MG IVPUSH (14:07)
[2023-06-14] MEDS: cefEPime HCl 1 GM in 0.9 % Sodium Chloride 50 ML IV (14:12)
--- NOTE | 2023-06-14 14:15 | PC.NURSE ---
Pt is a&ox4 coming in for sob sating at 86% RA, respirtory at bedside, pt placed on high flow, some improvement noted. pt reports being wheelchair bound at baseline. #20 left hand, #22 right wrist.
[2023-06-14 14:25] LABS: INTERNATIONAL NORM RATIO 2.1 (0.9-1.1); Prothrombin Time 25.5 SEC (11.1-13.3)
[2023-06-14 14:25] LABS: COVID-19 Test Negative (Negative); IDNOW Serial# 08D9AD1C
[2023-06-14 14:30] LABS: VBG Base Excess 5.3 mmol/L; VBG HCO3 27 mmol/L (22-26); VBG pCO2 32 mmHg; VBG pH 7.53 (7.32-7.43); VBG pO2 73 mmHg
[2023-06-14 14:33] LABS: Venous Blood Gas Refer to POC result
[2023-06-14 14:46] LABS: Lactic Acid 3.1 mmol/L (0.5-2.0)
[2023-06-14 14:49] LABS: B Type Natriuretic Peptide 2178 pg/mL (<100); Digoxin < 0.2 ng/mL (0.8-2.0)
[2023-06-14 14:53] LABS: Alanine Aminotransferase 7 U/L (0-31); Albumin Level 3.6 g/dL (3.5-5.0); Alkaline Phosphatase 88 U/L (39-117); Anion Gap 17 (12-20); Aspartate Amino Transferase 13 U/L (5-31); Bilirubin Direct 0.4 mg/dL (0.0-0.5); Bilirubin Total 1.2 mg/dL (0.0-1.0); Blood Urea Nitrogen 45 mg/dL (9-16); Calcium 11.1 mg/dL (8.4-10.2); Carbon Dioxide 26 mmol/L (22-29); Chloride 92 mmol/L (96-108); Creatinine Clr Calc Pharmacy 20.5; Estimated Glomerular Filt Rate 23; Glucose Random 192 mg/dL (60-115); Lipase 6 U/L (8-78); Magnesium 2.1 mg/dL (1.6-2.6); Potassium 4.3 mmol/L (3.3-5.1); Sodium 131 mmol/L (135-145); Total Protein 7.8 g/dL (6.5-8.0)
[2023-06-14 14:59] LABS: Troponin-I High Sensitivity 57.1 ng/L (<3.5-17.0)
[2023-06-14] MEDS: Furosemide 40 MG/4 ML VIAL IVPUSH (15:04)
[2023-06-14 15:05] LABS: Appearance Urine Hazy; Color Urine Yellow; Glucose Urine UA 100 mg/dL (Negative); Leukocyte Esterase Urine Large (3+) (Negative); Nitrite Urine Negative (Negative); PH 5.5 (5.0-9.0); Specific Gravity - Urine 1.015 (1.005-1.025); UMIC TRIGGER UACC YES; Urine Blood Moderate (2+) (Negative); Urine Ketones Negative (Negative); Urine Protein Negative (Neg-Trace)
[2023-06-14 15:07] LABS: Procalcitonin 1.35 ng/mL
--- NOTE | 2023-06-14 15:07 | PC.NURSE ---
pharmacy called for anmol
[2023-06-14] MEDS: 0.9 % Sodium Chloride 250 ML IV (15:17)
[2023-06-14] MEDS: vancomycin HCL 1,500 MG in 0.9 % Sodium Chloride 500 ML 333.33 MG IV (15:17)
[2023-06-14 15:31] LABS: RBC Urine 0-2 /HPF (0-2); UACC Culture Trigger YES
[2023-06-14 15:32] LABS: Bacteria Urine 4+ (None Seen); Hyaline Casts Urine 0-2 /LPF (0-2); Squamous Epithelial Cell Urine 0-2 /HPF (0-2)
[2023-06-14 16:05] LABS: MRSA Nasal PCR POSITIVE (Negative); SA Nasal PCR POSITIVE (Negative)
[2023-06-14 16:21] LABS: Reflex Lactate? Lactic Acid Added
--- NOTE | 2023-06-14 16:59 | MHC.EDTECH ---
This quality control technician asked Kaveh [place] if he could draw the Lactic Acid for this quality control technician because when I frannie the Troponin the Lactic Acid wasn't ready for draw and I stuck the patient twice. Kaveh said, sure, I'll try.
[2023-06-14 17:29] LABS: Troponin-I High Sensitivity 71.5 ng/L (<3.5-17.0)
[2023-06-14 17:42] LABS: ~Lactic Acid-LAB USE ONLY 2.2 mmol/L (0.5-2.0)
--- NOTE | 2023-06-14 19:15 | PC.NURSE ---
this rn assumed care of pt at 1900. pt resting in stretcher comfortably. pt on highflow 40% at this time, pt o2 sat 98-99% at this time. no acute distress noted. respirations even and unlabored.
[2023-06-14 19:23] LABS: Reflex Lactate? 2 Y
--- NOTE | 2023-06-14 19:46 | PHA.MEDREC ---
Pharmacy Consult ? Medication Reconciliation Pharmacy has completed the medication reconciliation. Confirmed medication with list sent by Maldonado Collins (and phone call). Bonita Forte CPhT
[2023-06-14 20:45] LABS: ~Lactic Acid-LAB USE ONLY 1.4 mmol/L (0.5-2.0)
[2023-06-14 21:27] LABS: Glucose, Whole Blood 272 mg/dL (60-115)
[2023-06-14] MEDS: Apixaban 5 MG TABLET PO (21:27)
[2023-06-14] MEDS: Insulin Lispro 100 UNIT/ML 3 ML VIAL SUBCUT (21:27)
[2023-06-14] MEDS: carvediloL 12.5 MG TABLET PO (21:27)
--- NOTE | 2023-06-14 21:29 | PC.NURSE ---
pt medicated per mar at this time, pt tolerated well with water.
--- NOTE | 2023-06-14 21:58 | PM.IMHP ---
History of Present Illness Date of Service: 06/14/23 Attending physician on admission: Arlene Shirley Chief Complaint: Shortness of breath Brenna Driver is a 73 y/o woman with past medical history significant for HFrEF (25-30%), pulmonary embolus on Eliquis, hypertension, chronic kidney disease, type 2 diabetes on insulin essential thrombocythemia was brought to the emergency department from [facility] due to respiratory failure. She was found to have significant low oxygen saturation (low 50s yesterday and in the 70s today). The patient looks acutely ill and tired and and was able to answer simple questions appropriately. His daughter was at bedside and contributed with the HPI. The patient denied chest pain or palpitations. She also denied any abdominal pain, nausea, vomiting or diarrhea. There is no fever or chills reported. In the ED, she was found to have significant tachypnea and tachycardia. There is no fever. She is currently on high-flow via nasal cannula. Her blood workup was remarkable for leukocytosis of 17.5 and lactic acidosis that is improving (3.1-->2.2). Venous blood gas showed no respiratory acidosis. There is mild hyponatremia. Creatinine is increasing. Troponin is elevated. BNP is 2,178. UA consistent with urinary tract infection. CXR is consistent with congestive heart failure with bilateral pleural effusion and bibasilar consolidation/atelectasis. ED tx: Oxygen (high-flow) Solu-Medrol 60 mg IV, albuterol 7.5 mg neb, cefepime 1 g IV, NS 750 mL, vancomycin 1.5 g. Review of Systems Review of Systems: Limited due to mental status. [facility] Medical History Atrial fibrillation with rapid ventricular response Essential thrombocythemia Rheumatic valvular disease Hyperlipemia HTN (hypertension) Atrial fibrillation CKD (chronic kidney disease) stage 3, GFR 30-59 ml/min Diabetes mellitus Aphasia Chronic ischemic left MCA stroke Social History Household Members: Friend(s) Housing: House Do you presently have visiting nurse or other home services: No Patient Tobacco Use Status: Never used Tobacco Smoked in Last 30 Days: No Use of substances other than those prescribed or required for medical reasons: No Advance Directives: Yes Advance Directives on File: Yes Advance Directives Date on File: 03/13/23 service: No Meds Allergies Allergy/AdvReac Type Severity Reaction Status Date / Time lisinopril Allergy Unknown Unknown Verified 03/12/23 23:14 atorvastatin AdvReac Unknown Unknown Verified 03/12/23 23:14 metformin AdvReac Unknown Unknown Verified 03/12/23 23:14 spironolactone AdvReac Unknown Unknown Verified 03/12/23 23:14 Active Medications: Current Medications Acetaminophen (Acetaminophen 325 Mg Tablet) 650 mg PO Q6H PRN PRN Reason: Pain, Mild (Pain Scale 1-3) Albuterol/Ipratropium (Albuterol/Iprat 2.5/0.5mg 3 Ml Ampul.Neb) 3 ml INHALE RQ4H WHILE AWAKE PRN PRN Reason: Shortness of Breath/Wheezing Amlodipine Besylate (Amlodipine Besylate 10 Mg Tablet) 10 mg PO DAILY [facility]; Protocol Apixaban (Apixaban 5 Mg Tablet) 5 mg PO BID [facility] Last Admin: 06/14/23 21:27 Dose: 5 mg Aspirin (Aspirin Enteric Coated 81 Mg Tablet.Dr) 81 mg PO DAILY [facility] Carvedilol (Carvedilol 12.5 Mg Tablet) 12.5 mg PO BID [facility]; Protocol Last Admin: 06/14/23 21:27 Dose: 12.5 mg Dextrose (Dextrose 50 % 25 Gm/50 Ml Syringe) 25 gm IVPUSH Q15M PRN; Protocol PRN Reason: per Hypoglycemia Standing Ord. Furosemide (Furosemide 100 Mg/10 Ml Vial) 60 mg IVPUSH DAILY [facility]; Protocol Glucose (Glucose Gel 15 Gm Gel..Gram.) 15 gm PO Q15M PRN; Protocol PRN Reason: per Hypoglycemia Standing Ord. Cefepime HCl 1 gm/ Sodium (Chloride) 50 mls @ 100 mls/hr IV Q12H [facility] Insulin Human Lispro (Insulin Lispro 100 Unit/Ml 3 Ml Vial) 0 unit SUBCUT Q6H [facility]; Protocol Last Admin: 06/14/23 21:27 Dose: 6 unit Potassium Chloride (Potassium Chloride Er 10 Meq Tablet.Er) 40 meq PO DAILY [facility] Sodium Chloride (0.9 % Sodium Chloride Flush 3 Ml Syringe) 3 ml IVFLUSH QSHIFT [facility] Home Medications Medication Instructions Recorded Confirmed Last Taken Type amlodipine 10 mg tablet 10 mg PO DAILY 10/24/23 01/25/24 Unknown History aspirin 81 mg tablet,delayed 81 mg PO DAILY 03/13/23 06/14/23 Unknown History release carvedilol 12.5 mg tablet 12.5 mg PO BID 03/13/23 06/14/23 Unknown History glipizide 10 mg tablet 10 mg PO DAILY 03/13/23 06/14/23 Unknown History insulin glargine 100 unit/mL (3 20 unit subcut BEDTIME 03/13/23 06/14/23 Unknown History mL) subcutaneous pen (Lantus Solostar U-100 Insulin) melatonin 3 mg tablet 3 mg PO BEDTIME PRN Sleep 03/13/23 06/14/23 Unknown History potassium chloride 10 mEq 40 meq PO DAILY 03/13/23 06/14/23 Unknown History capsule,extended release sodium bicarbonate 650 mg tablet 1,300 mg PO DAILY 03/13/23 06/14/23 Unknown History furosemide 20 mg tablet 20 mg PO BID 06/14/23 06/14/23 Unknown History insulin aspart U-100 100 unit/mL 0 sliding scale dose subcut QIDACHS 06/14/23 06/14/23 Unknown History (3 mL) subcutaneous pen sodium chloride 1 gram tablet 1 g PO QAM 06/14/23 06/14/23 Unknown History tramadol 50 mg tablet 25 mg PO Q6H PRN Pain 06/14/23 06/14/23 Unknown History trazodone 50 mg tablet 25 mg PO BID 06/14/23 06/14/23 Unknown History Physical Exam Vital Signs and Narrative: Vital Signs: Last Vital Signs Temp 98.9 F 06/14/23 21:06 Pulse 91 06/14/23 21:06 Resp 14 06/14/23 21:06 BP 141/55 H 06/14/23 21:06 Pulse Ox 100 06/14/23 21:06 O2 Del Method High Flow Nasal C annula 06/14/23 21:06 O2 Flow Rate 54.2 06/14/23 19:59 FiO2 58 06/14/23 16:55 Oxygen Flow Rate 40 06/14/23 13:38 BMI result Body Mass Index 27.4 Constitutional - Somnolent but easy to arouse. Answering questions appropriate. Acutely ill. On high flow (NC) HEENT - Atraumatic. Normocephalic. Pupils equally rounds. Heart - RRR, distant sounds. Respiratory - Normal lung expansion, poor respiratory effort, No respiratory distress. Tachypneic. Decreased breath sounds at the bases. No wheezing. No rhonchi. Gastrointestinal - NT / ND; +BS; No rebound or guarding Extremities - pitting edema Musculoskeletal - Normal inspection, normal ROM Skin - Warm/Dry Neurological - Oriented x3. No focal weeks and grossly noted. Dysarthria (chronic, old CVA) Psychological - depressed affect Results Labs 06/14/23 13:53 06/14/23 14:17 Labs: Laboratory Results - last 24 hr 06/14/23 06/14/23 06/14/23 13:53 13:54 14:17 MCV 76.0 L MCH 25.4 L MCHC 33.4 RDW 13.8 Plt Count 386 MPV 10.2 Immature Gran % (Auto) 0.5 H Neut % (Auto) 86.6 H Lymph % (Auto) 7.7 L [place] % (Auto) 4.9 Eos % (Auto) 0.1 Baso % (Auto) 0.2 Lymph # (Auto) 1.4 [place] # (Auto) 0.9 Eos # (Auto) 0.0 Baso # (Auto) 0.0 Abs Immat Gran (auto) 0.09 H Absolute Neuts (auto) 15.1 H Absolute Nucleated RBC 0.000 Nucleated RBC % (auto) 0.0 PT 25.5 H D INR 2.1 H VBG pH VBG pCO2 VBG pO2 VBG HCO3 VBG O2 Saturation VBG Base Excess Anion Gap 17 Estim Creat Clear Calc 20.5 Estimated GFR 23 POC Glucose Random Glucose 192 H Lactic Acid 3.1 H* Lactic Acid F/U @ 2Hr Lactic Acid F/U @ 4Hr Calcium 11.1 H D Magnesium 2.1 Total Bilirubin 1.2 H Direct Bilirubin 0.4 AST 13 ALT 7 Alkaline Phosphatase 88 B-Natriuretic Peptide 2178 H Total Protein 7.8 Albumin 3.6 Lipase 6 L Procalcitonin 1.35 Urine Color Urine Appearance Urine pH Ur Specific [place] Urine Protein Urine Glucose (UA) Urine Ketones Urine Blood Urine Nitrite Ur Leukocyte Esterase Urine RBC Urine WBC Ur Squamous Epith Cells Urine Bacteria Hyaline Casts Nasal Screen MRSA (PCR) Nasal S. aureus Screen Nasal MRSA/S.aureus Interp Digoxin < 0.2 L COVID-19 ([facility]) Negative COVID-19 Clin Com See Note 06/14/23 06/14/23 06/14/23 14:21 14:22 14:53 MCV MCH MCHC RDW Plt Count MPV Immature Gran % (Auto) Neut % (Auto) Lymph % (Auto) [place] % (Auto) Eos % (Auto) Baso % (Auto) Lymph # (Auto) [place] # (Auto) Eos # (Auto) Baso # (Auto) Abs Immat Gran (auto) Absolute Neuts (auto) Absolute Nucleated RBC Nucleated RBC % (auto) PT INR VBG pH 7.53 H VBG pCO2 32 VBG pO2 73 VBG HCO3 27 H VBG O2 Saturation 97.0 VBG Base Excess 5.3 Anion Gap Estim Creat Clear Calc Estimated GFR POC Glucose Random Glucose Lactic Acid Lactic Acid F/U @ 2Hr Lactic Acid F/U @ 4Hr Calcium Magnesium Total Bilirubin Direct Bilirubin AST ALT Alkaline Phosphatase B-Natriuretic Peptide Total Protein Albumin Lipase Procalcitonin Urine Color Yellow Urine Appearance Hazy Urine pH 5.5 Ur Specific [place] 1.015 Urine Protein Negative Urine Glucose (UA) 100 H Urine Ketones Negative Urine Blood Moderate (2+) H Urine Nitrite Negative Ur Leukocyte Esterase Large (3+) H Urine RBC 0-2 Urine WBC 11-20 Ur Squamous Epith Cells 0-2 Urine Bacteria 4+ Hyaline Casts 0-2 Nasal Screen MRSA (PCR) POSITIVE A Nasal S. aureus Screen POSITIVE A Nasal MRSA/S.aureus Interp SEE NOTE Digoxin COVID-19 ([facility]) COVID-19 Clin Com 06/14/23 06/14/23 06/14/23 17:18 20:29 21:23 MCV MCH MCHC RDW Plt Count MPV Immature Gran % (Auto) Neut % (Auto) Lymph % (Auto) [place] % (Auto) Eos % (Auto) Baso % (Auto) Lymph # (Auto) [place] # (Auto) Eos # (Auto) Baso # (Auto) Abs Immat Gran (auto) Absolute Neuts (auto) Absolute Nucleated RBC Nucleated RBC % (auto) PT INR VBG pH VBG pCO2 VBG pO2 VBG HCO3 VBG O2 Saturation VBG Base Excess Anion Gap Estim Creat Clear Calc Estimated GFR POC Glucose 272 H Random Glucose Lactic Acid Lactic Acid F/U @ 2Hr 2.2 H* Lactic Acid F/U @ 4Hr 1.4 Calcium Magnesium Total Bilirubin Direct Bilirubin AST ALT Alkaline Phosphatase B-Natriuretic Peptide Total Protein Albumin Lipase Procalcitonin Urine Color Urine Appearance Urine pH Ur Specific [place] Urine Protein Urine Glucose (UA) Urine Ketones Urine Blood Urine Nitrite Ur Leukocyte Esterase Urine RBC Urine WBC Ur Squamous Epith Cells Urine Bacteria Hyaline Casts Nasal Screen MRSA (PCR) Nasal S. aureus Screen Nasal MRSA/S.aureus Interp Digoxin COVID-19 ([facility]) COVID-19 Clin Com Imaging Radiologist's Impressions: Impressions Chest X-Ray 06/14/23 14:03 IMPRESSION: Congestive heart failure with bilateral pleural effusions and bibasilar consolidation/atelectasis. Assessment and Plan (1) Hypoxic respiratory failure: Qualifiers: Chronicity: acute Qualified Code(s): J96.01 - Acute respiratory failure with hypoxia Status: Acute (2) Pneumonia: Qualifiers: Laterality: right Lung location: lower lobe of lung Pneumonia type: due to unspecified organism Qualified Code(s): J18.9 - Pneumonia, unspecified organism Status: Acute Plan Brenna Driver is a 73 y/o woman admitted with: Hypoxic respiratory failure likely multifactorial: Acute on chronic congestive heart failure associated with bilateral pleural effusion + possible pneumonia. Admit to hospitalist service. Telemetry. Continue therapy with high-flow to keep oxygen saturation above 92%. Continue Lasix IV daily. Continue Coreg. Daily weight. Empiric IV antibiotic therapy with cefepime and azithromycin. Sepsis criteria: Tachycardia, leukocytosis and lactic acidosis. Possible secondary to pneumonia and/or urinary tract infection. This can be also caused hypoxic respiratory failure and congestive heart failure. Continue treatment with cefepime Blood cultures were obtained we will follow resolved. Continue to follow lactic acid. Careful IV fluids administration due to severe congestive heart failure. Urinary tract infection. UC obtained, we will follow resolved. Continue cefepime. History of pulmonary embolism. Continue Eliquis, dose was adjusted to renal function. Chronic kidney disease, renal function is declining likely secondary to acute congestive heart failure. Diuresis is also contributing to this. Avoid nephrotoxic agents. Continue to monitor renal function. Essential hypertension. Continue amlodipine and Coreg if blood pressure allows. History of essential thombocythemia. Platelets are normal. Type 2 diabetes mellitus. Continue to monitor blood glucose every 6 hours while NPO. Blood glucose control with insulin sliding scale as needed. NPO status. Patient looks somnolent and acutely ill. Aspiration precautions. Chronic anemia, stable. Continue to monitor hemoglobin. DVT prophylaxis: On Eliquis GI prophylaxis: Protonix IV Code status: DNR/DNI (d/w patient and daughter. Quality Stroke Does the patient have a stroke diagnosis?: No VTE Prior VTE?: No VTE Risk Level:: Medical - moderate - high VTE Device Contraindication: Treatment Not Indicated VTE Drug Contraindication: N/A - Med Ordered
[2023-06-15] VITALS (13 sets, daily range): BP systolic 125–144; BP diastolic 57–86; PULSE 59–106; RESP 15–30; TEMP 36–37; O2SAT 92–100; BMI 23.2
--- NOTE | 2023-06-15 00:11 | PC.RT ---
Pt trialed off HFNC and placed on 4LPM via NC with humidity. Pt nacho well at this time with no resp. distress noted at this time. RN notified. HFNC on standby
--- NOTE | 2023-06-15 00:11 | PC.NURSE ---
respiratory at bedside, removed pt from highflow, pt placed on 4L nasal cannula sating 98%.
[2023-06-15] MEDS: Azithromycin 500 MG in 0.9 % Sodium Chloride 250 ML 125 MG IV ×2 (00:12→23:23)
--- NOTE | 2023-06-15 00:33 | PC.NURSE ---
this rn unable to edit previously documented ED admission handoff report. report given to Minal OROPEZA via phone.
[2023-06-15 00:42] LABS: Glucose, Whole Blood 295 mg/dL (60-115)
[2023-06-15 01:53] LABS: Troponin-I High Sensitivity 87.2 ng/L (<3.5-17.0)
--- NOTE | 2023-06-15 02:12 | PC.RT ---
RT Notified by RN that pt had arrived from ED with an inceased WOB and desaturating. PT was placed back on HFNC 40L 50% to maintain O2 sats above 90%
[2023-06-15] MEDS: cefEPime HCl 1 GM in 0.9 % Sodium Chloride 50 ML IV ×2 (05:45→13:14)
[2023-06-15] MEDS: Pantoprazole Sodium 40 MG/10 ML VIAL IVPUSH (05:45)
[2023-06-15 05:50] LABS: Glucose, Whole Blood 310 mg/dL (60-115)
[2023-06-15] MEDS: Insulin Lispro 100 UNIT/ML 3 ML VIAL SUBCUT ×3 (06:00→16:55)
[2023-06-15 06:50] LABS: MANUAL DIFF FLAG NO
[2023-06-15 06:53] LABS: Basophils Percent Auto 0.2 % (0-2); Hematocrit 27.2 % (37.0-47.0); Imm Gran Abs Auto 0.02 X10*3/uL (0.00-0.03); Imm Gran Pct Auto 0.3 % (0.0-0.4); Lymphocytes Absolute Auto 0.7 X10*3/uL (1.2-4.9); Lymphocytes Percent Auto 11.4 % (20-40); Mean Corpuscular HGB Conc 33.1 g/dl (31.0-35.0); Mean Corpuscular Hemoglobin 25.3 pg (27.0-33.0); Mean Corpuscular Volume 76.4 fL (80.0-98.0); Mean Platelet Volume 10.6 fL (9.4-12.3); Monocytes Absolute Auto 0.2 X10*3/uL (0.1-1.2); Monocytes Percent Auto 3.7 % (2-11); Neutrophils Absolute Auto 5.3 x10*3/uL (2.0-8.3); Neutrophils Percent Auto 84.4 % (45-73); Platelet Count 245 X10*3/uL (160-400); Red Blood Count 3.56 X10*6/uL (4.20-5.50); Red Cell Distribution Width 14.1 % (11.0-16.0); White Blood Count 6.3 X10*3/uL (4.8-10.8)
[2023-06-15 07:10] LABS: Alanine Aminotransferase 7 U/L (0-31); Albumin Level 2.9 g/dL (3.5-5.0); Alkaline Phosphatase 66 U/L (39-117); Anion Gap 19 (12-20); Aspartate Amino Transferase 10 U/L (5-31); Blood Urea Nitrogen 51 mg/dL (9-16); Calcium 10.2 mg/dL (8.4-10.2); Carbon Dioxide 21 mmol/L (22-29); Chloride 97 mmol/L (96-108); Creatinine Clr Calc Pharmacy 18.8; Estimated Glomerular Filt Rate 25; Glucose Random 341 mg/dL (60-115); Magnesium 2.1 mg/dL (1.6-2.6); Potassium 4.6 mmol/L (3.3-5.1); Sodium 132 mmol/L (135-145); Total Protein 6.4 g/dL (6.5-8.0)
[2023-06-15 07:28] LABS: Troponin-I High Sensitivity 70.1 ng/L (<3.5-17.0)
--- NOTE | 2023-06-15 08:20 | MHC.CM.PN ---
CM met with Patient at bedside and attempted to address IMM with her,but Patient prefers that CM speak with her Daughter/HCP/Haily @ [phone] (original will be mailed certified letter to Haily and a copy has been placed on the chart). Patient states that she is a STR Resident of [facility] and returning there to complete STR is her goal. CM has initiated and will follow for dc planning.
[2023-06-15] MEDS: Aspirin Enteric Coated 81 MG TABLET.DR PO (08:35)
[2023-06-15] MEDS: carvediloL 12.5 MG TABLET PO ×2 (08:36→21:30)
[2023-06-15] MEDS: amLODIPine Besylate 10 MG TABLET PO (08:36)
[2023-06-15] MEDS: Potassium Chloride ER 10 MEQ TABLET.ER 40 MEQ PO (08:36)
[2023-06-15] MEDS: Furosemide 100 MG/10 ML VIAL 60 MG IVPUSH (08:36)
[2023-06-15] MEDS: Apixaban 2.5 MG TABLET PO ×2 (08:36→21:30)
[2023-06-15] MEDS: 0.9 % Sodium Chloride Flush 3 ML SYRINGE IVFLUSH ×3 (08:37→21:29)
--- NOTE | 2023-06-15 11:14 | PM.CNCAR ---
History of Present Illness History of Present Illness Date of Service: 06/15/23 Requesting physician: Tom Carpenter Chief complaint: CHF Narrative: 73-year-old female with known history of systolic heart failure and previous stroke presenting with shortness of breath. Clinically she was noticed to be in heart failure. She is on high-flow oxygen currently. She has EF of 25 30% based on echocardiography, chronic kidney disease, diabetes type 2 and essential thrombocythemia. She is saying she is feeling little better currently. As mentioned she is on high-flow oxygen. Chest x-ray showed bilateral effusion and changes consistent with congestive heart failure. No chest discomfort. [facility] Past Medical History Medical History Atrial fibrillation with rapid ventricular response Essential thrombocythemia Rheumatic valvular disease Hyperlipemia HTN (hypertension) Atrial fibrillation CKD (chronic kidney disease) stage 3, GFR 30-59 ml/min Diabetes mellitus Aphasia Chronic ischemic left MCA stroke Social History Social History Household Members: Friend(s) Household Members Other:: daughter Housing: Apartment Do you presently have visiting nurse or other home services: Yes (pt currently at [facility]) Patient Tobacco Use Status: Never used Tobacco Advance Directives Date on File: 03/13/23 service: No Meds Allergies Allergy/AdvReac Type Severity Reaction Status Date / Time lisinopril Allergy Unknown Unknown Verified 03/12/23 23:14 atorvastatin AdvReac Unknown Unknown Verified 03/12/23 23:14 metformin AdvReac Unknown Unknown Verified 03/12/23 23:14 spironolactone AdvReac Unknown Unknown Verified 03/12/23 23:14 Active Medications: Current Medications Acetaminophen (Acetaminophen 325 Mg Tablet) 650 mg PO Q6H PRN PRN Reason: Pain, Mild (Pain Scale 1-3) Albuterol/Ipratropium (Albuterol/Iprat 2.5/0.5mg 3 Ml Ampul.Neb) 3 ml INHALE RQ4H WHILE AWAKE PRN PRN Reason: Shortness of Breath/Wheezing Amlodipine Besylate (Amlodipine Besylate 10 Mg Tablet) 10 mg PO DAILY [facility]; Protocol Last Admin: 06/15/23 08:36 Dose: 10 mg Apixaban (Apixaban 2.5 Mg Tablet) 2.5 mg PO BID [facility] Last Admin: 06/15/23 08:36 Dose: 2.5 mg Aspirin (Aspirin Enteric Coated 81 Mg Tablet.Dr) 81 mg PO DAILY [facility] Last Admin: 06/15/23 08:35 Dose: 81 mg Carvedilol (Carvedilol 12.5 Mg Tablet) 12.5 mg PO BID [facility]; Protocol Last Admin: 06/15/23 08:36 Dose: 12.5 mg Dextrose (Dextrose 50 % 25 Gm/50 Ml Syringe) 25 gm IVPUSH Q15M PRN; Protocol PRN Reason: per Hypoglycemia Standing Ord. Furosemide (Furosemide 100 Mg/10 Ml Vial) 60 mg IVPUSH DAILY [facility]; Protocol Last Admin: 06/15/23 08:36 Dose: 60 mg Glucose (Glucose Gel 15 Gm Gel..Gram.) 15 gm PO Q15M PRN; Protocol PRN Reason: per Hypoglycemia Standing Ord. Cefepime HCl 1 gm/ Sodium (Chloride) 50 mls @ 100 mls/hr IV Q12H [facility] Last Infusion: 06/15/23 06:20 Dose: Infused Azithromycin 500 mg/ Sodium (Chloride) 250 mls @ 125 mls/hr IV Q24H [facility] Last Infusion: 06/15/23 02:15 Dose: Infused Insulin Human Lispro (Insulin Lispro 100 Unit/Ml 3 Ml Vial) 0 unit SUBCUT Q6H [facility]; Protocol Last Admin: 06/15/23 06:00 Dose: 8 unit Pantoprazole Sodium (Pantoprazole Sodium 40 Mg/10 Ml Vial) 40 mg IVPUSH DAILY@0630 [facility] Last Admin: 06/15/23 05:45 Dose: 40 mg Potassium Chloride (Potassium Chloride Er 10 Meq Tablet.Er) 40 meq PO DAILY [facility] Last Admin: 06/15/23 08:36 Dose: 40 meq Sodium Chloride (0.9 % Sodium Chloride Flush 3 Ml Syringe) 3 ml IVFLUSH QSHIFT [facility] Last Admin: 06/15/23 08:37 Dose: 3 ml Home Medications Medication Instructions Recorded Confirmed Last Taken Type amlodipine 10 mg tablet 10 mg PO DAILY 03/13/23 06/14/23 Unknown History aspirin 81 mg tablet,delayed 81 mg PO DAILY 03/13/23 06/14/23 Unknown History release carvedilol 12.5 mg tablet 12.5 mg PO BID 03/13/23 06/14/23 Unknown History glipizide 10 mg tablet 10 mg PO DAILY 03/13/23 06/14/23 Unknown History insulin glargine 100 unit/mL (3 20 unit subcut BEDTIME 03/13/23 06/14/23 Unknown History mL) subcutaneous pen (Lantus Solostar U-100 Insulin) melatonin 3 mg tablet 3 mg PO BEDTIME PRN Sleep 03/13/23 06/14/23 Unknown History potassium chloride 10 mEq 40 meq PO DAILY 03/13/23 06/14/23 Unknown History capsule,extended release sodium bicarbonate 650 mg tablet 1,300 mg PO DAILY 03/13/23 06/14/23 Unknown History furosemide 20 mg tablet 20 mg PO BID 06/14/23 06/14/23 Unknown History insulin aspart U-100 100 unit/mL 0 sliding scale dose subcut QIDACHS 06/14/23 06/14/23 Unknown History (3 mL) subcutaneous pen sodium chloride 1 gram tablet 1 g PO QAM 06/14/23 06/14/23 Unknown History tramadol 50 mg tablet 25 mg PO Q6H PRN Pain 06/14/23 06/14/23 Unknown History trazodone 50 mg tablet 25 mg PO BID 06/14/23 06/14/23 Unknown History Physical Exam Vital Signs: Vital Signs: Last Vital Signs Temp 97.2 F 06/15/23 07:22 Pulse 74 06/15/23 07:22 Resp 17 06/15/23 10:14 BP 137/64 06/15/23 07:22 Pulse Ox 100 06/15/23 07:22 O2 Del Method High Flow Nasal C annula 06/15/23 07:22 O2 Flow Rate 40 06/15/23 07:22 FiO2 50 06/15/23 07:22 Oxygen Flow Rate 40 06/14/23 13:38 BMI result Body Mass Index 23.2 GENERAL APPEARANCE: On high-flow oxygen. NECK: no carotid bruit, no obvious jugular venous distention. SKIN: no suspicious lesions, warm and dry. HEART: no murmurs, regular rate and rhythm. LUNGS: Crackles left base. ABDOMEN: soft, nontender. EXTREMITIES: no edema. PERIPHERAL PULSES: equal. NEUROLOGIC: Previous CVA affecting the right side of the body with hemiparesis in the right leg. Objective Labs and Meds 06/15/23 06:22 06/15/23 06:22 Lab results: Laboratory Results - last 24 hr 06/14/23 06/14/23 06/14/23 13:53 13:54 14:17 WBC 17.5 H RBC 4.25 Hgb 10.8 L Hct 32.3 L MCV 76.0 L MCH 25.4 L MCHC 33.4 RDW 13.8 Plt Count 386 MPV 10.2 Immature Gran % (Auto) 0.5 H Neut % (Auto) 86.6 H Lymph % (Auto) 7.7 L [place] % (Auto) 4.9 Eos % (Auto) 0.1 Baso % (Auto) 0.2 Lymph # (Auto) 1.4 [place] # (Auto) 0.9 Eos # (Auto) 0.0 Baso # (Auto) 0.0 Abs Immat Gran (auto) 0.09 H Absolute Neuts (auto) 15.1 H Absolute Nucleated RBC 0.000 Nucleated RBC % (auto) 0.0 PT 25.5 H D INR 2.1 H VBG pH VBG pCO2 VBG pO2 VBG HCO3 VBG O2 Saturation VBG Base Excess Sodium 131 L Potassium 4.3 Chloride 92 L Carbon Dioxide 26 Anion Gap 17 BUN 45 H Creatinine 2.09 H Estim Creat Clear Calc 20.5 Estimated GFR 23 POC Glucose Random Glucose 192 H Lactic Acid 3.1 H* Lactic Acid F/U @ 2Hr Lactic Acid F/U @ 4Hr Calcium 11.1 H D Magnesium 2.1 Total Bilirubin 1.2 H Direct Bilirubin 0.4 AST 13 ALT 7 Alkaline Phosphatase 88 Troponin I High Sens 57.1 H* B-Natriuretic Peptide 2178 H Total Protein 7.8 Albumin 3.6 Lipase 6 L Procalcitonin 1.35 Urine Color Urine Appearance Urine pH Ur Specific [place] Urine Protein Urine Glucose (UA) Urine Ketones Urine Blood Urine Nitrite Ur Leukocyte Esterase Urine RBC Urine WBC Ur Squamous Epith Cells Urine Bacteria Hyaline Casts Nasal Screen MRSA (PCR) Nasal S. aureus Screen Nasal MRSA/S.aureus Interp Digoxin < 0.2 L COVID-19 ([facility]) Negative COVID-19 Clin Com See Note 06/14/23 06/14/23 06/14/23 14:21 14:22 14:53 WBC RBC Hgb Hct MCV MCH MCHC RDW Plt Count MPV Immature Gran % (Auto) Neut % (Auto) Lymph % (Auto) [place] % (Auto) Eos % (Auto) Baso % (Auto) Lymph # (Auto) [place] # (Auto) Eos # (Auto) Baso # (Auto) Abs Immat Gran (auto) Absolute Neuts (auto) Absolute Nucleated RBC Nucleated RBC % (auto) PT INR VBG pH 7.53 H VBG pCO2 32 VBG pO2 73 VBG HCO3 27 H VBG O2 Saturation 97.0 VBG Base Excess 5.3 Sodium Potassium Chloride Carbon Dioxide Anion Gap BUN Creatinine Estim Creat Clear Calc Estimated GFR POC Glucose Random Glucose Lactic Acid Lactic Acid F/U @ 2Hr Lactic Acid F/U @ 4Hr Calcium Magnesium Total Bilirubin Direct Bilirubin AST ALT Alkaline Phosphatase Troponin I High Sens B-Natriuretic Peptide Total Protein Albumin Lipase Procalcitonin Urine Color Yellow Urine Appearance Hazy Urine pH 5.5 Ur Specific [place] 1.015 Urine Protein Negative Urine Glucose (UA) 100 H Urine Ketones Negative Urine Blood Moderate (2+) H Urine Nitrite Negative Ur Leukocyte Esterase Large (3+) H Urine RBC 0-2 Urine WBC 11-20 Ur Squamous Epith Cells 0-2 Urine Bacteria 4+ Hyaline Casts 0-2 Nasal Screen MRSA (PCR) POSITIVE A Nasal S. aureus Screen POSITIVE A Nasal MRSA/S.aureus Interp SEE NOTE Digoxin COVID-19 ([facility]) COVID-19 Clin Com 06/14/23 06/14/23 06/14/23 16:54 17:18 20:29 WBC RBC Hgb Hct MCV MCH MCHC RDW Plt Count MPV Immature Gran % (Auto) Neut % (Auto) Lymph % (Auto) [place] % (Auto) Eos % (Auto) Baso % (Auto) Lymph # (Auto) [place] # (Auto) Eos # (Auto) Baso # (Auto) Abs Immat Gran (auto) Absolute Neuts (auto) Absolute Nucleated RBC Nucleated RBC % (auto) PT INR VBG pH VBG pCO2 VBG pO2 VBG HCO3 VBG O2 Saturation VBG Base Excess Sodium Potassium Chloride Carbon Dioxide Anion Gap BUN Creatinine Estim Creat Clear Calc Estimated GFR POC Glucose Random Glucose Lactic Acid Lactic Acid F/U @ 2Hr 2.2 H* Lactic Acid F/U @ 4Hr 1.4 Calcium Magnesium Total Bilirubin Direct Bilirubin AST ALT Alkaline Phosphatase Troponin I High Sens 71.5 H* B-Natriuretic Peptide Total Protein Albumin Lipase Procalcitonin Urine Color Urine Appearance Urine pH Ur Specific [place] Urine Protein Urine Glucose (UA) Urine Ketones Urine Blood Urine Nitrite Ur Leukocyte Esterase Urine RBC Urine WBC Ur Squamous Epith Cells Urine Bacteria Hyaline Casts Nasal Screen MRSA (PCR) Nasal S. aureus Screen Nasal MRSA/S.aureus Interp Digoxin COVID-19 ([facility]) COVID-19 Clin Com 06/14/23 06/15/23 06/15/23 21:23 00:35 01:16 WBC RBC Hgb Hct MCV MCH MCHC RDW Plt Count MPV Immature Gran % (Auto) Neut % (Auto) Lymph % (Auto) [place] % (Auto) Eos % (Auto) Baso % (Auto) Lymph # (Auto) [place] # (Auto) Eos # (Auto) Baso # (Auto) Abs Immat Gran (auto) Absolute Neuts (auto) Absolute Nucleated RBC Nucleated RBC % (auto) PT INR VBG pH VBG pCO2 VBG pO2 VBG HCO3 VBG O2 Saturation VBG Base Excess Sodium Potassium Chloride Carbon Dioxide Anion Gap BUN Creatinine Estim Creat Clear Calc Estimated GFR POC Glucose 272 H 295 H Random Glucose Lactic Acid Lactic Acid F/U @ 2Hr Lactic Acid F/U @ 4Hr Calcium Magnesium Total Bilirubin Direct Bilirubin AST ALT Alkaline Phosphatase Troponin I High Sens 87.2 H* B-Natriuretic Peptide Total Protein Albumin Lipase Procalcitonin Urine Color Urine Appearance Urine pH Ur Specific [place] Urine Protein Urine Glucose (UA) Urine Ketones Urine Blood Urine Nitrite Ur Leukocyte Esterase Urine RBC Urine WBC Ur Squamous Epith Cells Urine Bacteria Hyaline Casts Nasal Screen MRSA (PCR) Nasal S. aureus Screen Nasal MRSA/S.aureus Interp Digoxin COVID-19 ([facility]) COVID-19 Clin Com 06/15/23 06/15/23 05:46 06:22 WBC 6.3 RBC 3.56 L Hgb 9.0 L Hct 27.2 L MCV 76.4 L MCH 25.3 L MCHC 33.1 RDW 14.1 Plt Count 245 D MPV 10.6 Immature Gran % (Auto) 0.3 Neut % (Auto) 84.4 H Lymph % (Auto) 11.4 L [place] % (Auto) 3.7 Eos % (Auto) 0.0 Baso % (Auto) 0.2 Lymph # (Auto) 0.7 L [place] # (Auto) 0.2 Eos # (Auto) 0.0 Baso # (Auto) 0.0 Abs Immat Gran (auto) 0.02 Absolute Neuts (auto) 5.3 Absolute Nucleated RBC 0.000 Nucleated RBC % (auto) 0.0 PT INR VBG pH VBG pCO2 VBG pO2 VBG HCO3 VBG O2 Saturation VBG Base Excess Sodium 132 L Potassium 4.6 Chloride 97 Carbon Dioxide 21 L Anion Gap 19 BUN 51 H Creatinine 1.98 H Estim Creat Clear Calc 18.8 Estimated GFR 25 POC Glucose 310 H Random Glucose 341 H Lactic Acid Lactic Acid F/U @ 2Hr Lactic Acid F/U @ 4Hr Calcium 10.2 D Magnesium 2.1 Total Bilirubin 1.0 Direct Bilirubin AST 10 ALT 7 Alkaline Phosphatase 66 Troponin I High Sens 70.1 H* B-Natriuretic Peptide Total Protein 6.4 L Albumin 2.9 L Lipase Procalcitonin Urine Color Urine Appearance Urine pH Ur Specific [place] Urine Protein Urine Glucose (UA) Urine Ketones Urine Blood Urine Nitrite Ur Leukocyte Esterase Urine RBC Urine WBC Ur Squamous Epith Cells Urine Bacteria Hyaline Casts Nasal Screen MRSA (PCR) Nasal S. aureus Screen Nasal MRSA/S.aureus Interp Digoxin COVID-19 ([facility]) COVID-19 Clin Com Imaging Radiologist's impression: Impressions Chest X-Ray 06/14/23 14:03 IMPRESSION: Congestive heart failure with bilateral pleural effusions and bibasilar consolidation/atelectasis. Assessment and Plan (1) Hypoxic respiratory failure: Qualifiers: Chronicity: acute Qualified Code(s): J96.01 - Acute respiratory failure with hypoxia Status: Acute (2) Acute on chronic clinical systolic heart failure: Status: Acute Plan Pleasant 73 year female with known history of systolic heart failure presenting with shortness of breath and clinical evidence of heart failure. She is on IV Lasix 60 mg daily. She was taking 20 mg p.o. b.i.d. Lasix at home. She is on Eliquis for previous pulmonary embolism. Continue diuresis. Aim for negative balance more than 1 L. wean off oxygen as tolerated. It appears she had an allergy to lisinopril which is unknown and currently she has not on Van or ARB. We will follow along with you. Thank you for allowing me to participate in the care of your patient. Please feel free to contact me if you have any questions. Procedures Date of Service Date of Service: 06/15/23
--- NOTE | 2023-06-15 11:31 | P.PNIM_ITS ---
Subjective Subjective Date of Service: 06/15/23 Interval History: f/u on speis, heart failure, uti, pna still on hiflow,seems very anxious Physical Exam 2 Vital Signs: Vital Signs: Last Vital Signs Temp 97.2 F 06/15/23 07:22 Pulse 74 06/15/23 07:22 Resp 17 06/15/23 10:14 BP 137/64 06/15/23 07:22 Pulse Ox 100 06/15/23 07:22 O2 Del Method High Flow Nasal C annula 06/15/23 07:22 O2 Flow Rate 40 06/15/23 07:22 FiO2 50 06/15/23 07:22 Oxygen Flow Rate 40 06/14/23 13:38 BMI result Body Mass Index 23.2 Const: Other: General: alert, anxious, no acute distress Resp: rhonchi, CVS: S1,S2,RRR, 1+ leg edema GI: +BS, NT, no distention Skin: No rash Neuro: motor grossly intact Psych:anxious Objective Data Active Medications Acetaminophen (Acetaminophen 325 Mg Tablet) 650 mg PO Q6H PRN PRN Reason: Pain, Mild (Pain Scale 1-3) Albuterol/Ipratropium (Albuterol/Iprat 2.5/0.5mg 3 Ml Ampul.Neb) 3 ml INHALE RQ4H WHILE AWAKE PRN PRN Reason: Shortness of Breath/Wheezing Amlodipine Besylate (Amlodipine Besylate 10 Mg Tablet) 10 mg PO DAILY [facility]; Protocol Last Admin: 06/15/23 08:36 Dose: 10 mg Documented By: ALEX Apixaban (Apixaban 2.5 Mg Tablet) 2.5 mg PO BID [facility] Last Admin: 06/15/23 08:36 Dose: 2.5 mg Documented By: ALEX Aspirin (Aspirin Enteric Coated 81 Mg Tablet.) 81 mg PO DAILY [facility] Last Admin: 06/15/23 08:35 Dose: 81 mg Documented By: ALEX Carvedilol (Carvedilol 12.5 Mg Tablet) 12.5 mg PO BID [facility]; Protocol Last Admin: 06/15/23 08:36 Dose: 12.5 mg Documented By: ALEX Dextrose (Dextrose 50 % 25 Gm/50 Ml Syringe) 25 gm IVPUSH Q15M PRN; Protocol PRN Reason: per Hypoglycemia Standing Ord. Furosemide (Furosemide 100 Mg/10 Ml Vial) 60 mg IVPUSH DAILY [facility]; Protocol Last Admin: 06/15/23 08:36 Dose: 60 mg Documented By: ALEX Glucose (Glucose Gel 15 Gm Gel..Gram.) 15 gm PO Q15M PRN; Protocol PRN Reason: per Hypoglycemia Standing Ord. Cefepime HCl 1 gm/ Sodium (Chloride) 50 mls @ 100 mls/hr IV Q12H [facility] Last Infusion: 06/15/23 06:20 Dose: Infused Documented By: RADHA Azithromycin 500 mg/ Sodium (Chloride) 250 mls @ 125 mls/hr IV Q24H [facility] Last Infusion: 06/15/23 02:15 Dose: Infused Documented By: RADHA Insulin Human Lispro (Insulin Lispro 100 Unit/Ml 3 Ml Vial) 0 unit SUBCUT Q6H [facility]; Protocol Last Admin: 06/15/23 06:00 Dose: 8 unit Documented By: RADHA Pantoprazole Sodium (Pantoprazole Sodium 40 Mg/10 Ml Vial) 40 mg IVPUSH DAILY@0630 [facility] Last Admin: 06/15/23 05:45 Dose: 40 mg Documented By: RADHA Potassium Chloride (Potassium Chloride Er 10 Meq Tablet.Er) 40 meq PO DAILY [facility] Last Admin: 06/15/23 08:36 Dose: 40 meq Documented By: ALEX Sodium Chloride (0.9 % Sodium Chloride Flush 3 Ml Syringe) 3 ml IVFLUSH QSHIFT [facility] Last Admin: 06/15/23 08:37 Dose: 3 ml Documented By: ALEX Labs 06/15/23 06:22 06/15/23 06:22 Labs: Laboratory Results - last 24 hr 06/14/23 06/14/23 06/14/23 13:53 13:54 14:17 MCV 76.0 L MCH 25.4 L MCHC 33.4 RDW 13.8 Plt Count 386 MPV 10.2 Immature Gran % (Auto) 0.5 H Neut % (Auto) 86.6 H Lymph % (Auto) 7.7 L [place] % (Auto) 4.9 Eos % (Auto) 0.1 Baso % (Auto) 0.2 Lymph # (Auto) 1.4 [place] # (Auto) 0.9 Eos # (Auto) 0.0 Baso # (Auto) 0.0 Abs Immat Gran (auto) 0.09 H Absolute Neuts (auto) 15.1 H Absolute Nucleated RBC 0.000 Nucleated RBC % (auto) 0.0 PT 25.5 H D INR 2.1 H VBG pH VBG pCO2 VBG pO2 VBG HCO3 VBG O2 Saturation VBG Base Excess Anion Gap 17 Estim Creat Clear Calc 20.5 Estimated GFR 23 POC Glucose Random Glucose 192 H Lactic Acid 3.1 H* Lactic Acid F/U @ 2Hr Lactic Acid F/U @ 4Hr Calcium 11.1 H D Magnesium 2.1 Total Bilirubin 1.2 H Direct Bilirubin 0.4 AST 13 ALT 7 Alkaline Phosphatase 88 B-Natriuretic Peptide 2178 H Total Protein 7.8 Albumin 3.6 Lipase 6 L Procalcitonin 1.35 Urine Color Urine Appearance Urine pH Ur Specific [place] Urine Protein Urine Glucose (UA) Urine Ketones Urine Blood Urine Nitrite Ur Leukocyte Esterase Urine RBC Urine WBC Ur Squamous Epith Cells Urine Bacteria Hyaline Casts Nasal Screen MRSA (PCR) Nasal S. aureus Screen Nasal MRSA/S.aureus Interp Digoxin < 0.2 L COVID-19 ([facility]) Negative COVID-19 Clin Com See Note 06/14/23 06/14/23 06/14/23 14:21 14:22 14:53 MCV MCH MCHC RDW Plt Count MPV Immature Gran % (Auto) Neut % (Auto) Lymph % (Auto) [place] % (Auto) Eos % (Auto) Baso % (Auto) Lymph # (Auto) [place] # (Auto) Eos # (Auto) Baso # (Auto) Abs Immat Gran (auto) Absolute Neuts (auto) Absolute Nucleated RBC Nucleated RBC % (auto) PT INR VBG pH 7.53 H VBG pCO2 32 VBG pO2 73 VBG HCO3 27 H VBG O2 Saturation 97.0 VBG Base Excess 5.3 Anion Gap Estim Creat Clear Calc Estimated GFR POC Glucose Random Glucose Lactic Acid Lactic Acid F/U @ 2Hr Lactic Acid F/U @ 4Hr Calcium Magnesium Total Bilirubin Direct Bilirubin AST ALT Alkaline Phosphatase B-Natriuretic Peptide Total Protein Albumin Lipase Procalcitonin Urine Color Yellow Urine Appearance Hazy Urine pH 5.5 Ur Specific [place] 1.015 Urine Protein Negative Urine Glucose (UA) 100 H Urine Ketones Negative Urine Blood Moderate (2+) H Urine Nitrite Negative Ur Leukocyte Esterase Large (3+) H Urine RBC 0-2 Urine WBC 11-20 Ur Squamous Epith Cells 0-2 Urine Bacteria 4+ Hyaline Casts 0-2 Nasal Screen MRSA (PCR) POSITIVE A Nasal S. aureus Screen POSITIVE A Nasal MRSA/S.aureus Interp SEE NOTE Digoxin COVID-19 ([facility]) COVID-19 Clin Com 06/14/23 06/14/23 06/14/23 17:18 20:29 21:23 MCV MCH MCHC RDW Plt Count MPV Immature Gran % (Auto) Neut % (Auto) Lymph % (Auto) [place] % (Auto) Eos % (Auto) Baso % (Auto) Lymph # (Auto) [place] # (Auto) Eos # (Auto) Baso # (Auto) Abs Immat Gran (auto) Absolute Neuts (auto) Absolute Nucleated RBC Nucleated RBC % (auto) PT INR VBG pH VBG pCO2 VBG pO2 VBG HCO3 VBG O2 Saturation VBG Base Excess Anion Gap Estim Creat Clear Calc Estimated GFR POC Glucose 272 H Random Glucose Lactic Acid Lactic Acid F/U @ 2Hr 2.2 H* Lactic Acid F/U @ 4Hr 1.4 Calcium Magnesium Total Bilirubin Direct Bilirubin AST ALT Alkaline Phosphatase B-Natriuretic Peptide Total Protein Albumin Lipase Procalcitonin Urine Color Urine Appearance Urine pH Ur Specific [place] Urine Protein Urine Glucose (UA) Urine Ketones Urine Blood Urine Nitrite Ur Leukocyte Esterase Urine RBC Urine WBC Ur Squamous Epith Cells Urine Bacteria Hyaline Casts Nasal Screen MRSA (PCR) Nasal S. aureus Screen Nasal MRSA/S.aureus Interp Digoxin COVID-19 ([facility]) COVID-19 Clin Com 06/15/23 06/15/23 06/15/23 00:35 05:46 06:22 MCV 76.4 L MCH 25.3 L MCHC 33.1 RDW 14.1 Plt Count 245 D MPV 10.6 Immature Gran % (Auto) 0.3 Neut % (Auto) 84.4 H Lymph % (Auto) 11.4 L [place] % (Auto) 3.7 Eos % (Auto) 0.0 Baso % (Auto) 0.2 Lymph # (Auto) 0.7 L [place] # (Auto) 0.2 Eos # (Auto) 0.0 Baso # (Auto) 0.0 Abs Immat Gran (auto) 0.02 Absolute Neuts (auto) 5.3 Absolute Nucleated RBC 0.000 Nucleated RBC % (auto) 0.0 PT INR VBG pH VBG pCO2 VBG pO2 VBG HCO3 VBG O2 Saturation VBG Base Excess Anion Gap 19 Estim Creat Clear Calc 18.8 Estimated GFR 25 POC Glucose 295 H 310 H Random Glucose 341 H Lactic Acid Lactic Acid F/U @ 2Hr Lactic Acid F/U @ 4Hr Calcium 10.2 D Magnesium 2.1 Total Bilirubin 1.0 Direct Bilirubin AST 10 ALT 7 Alkaline Phosphatase 66 B-Natriuretic Peptide Total Protein 6.4 L Albumin 2.9 L Lipase Procalcitonin Urine Color Urine Appearance Urine pH Ur Specific [place] Urine Protein Urine Glucose (UA) Urine Ketones Urine Blood Urine Nitrite Ur Leukocyte Esterase Urine RBC Urine WBC Ur Squamous Epith Cells Urine Bacteria Hyaline Casts Nasal Screen MRSA (PCR) Nasal S. aureus Screen Nasal MRSA/S.aureus Interp Digoxin COVID-19 ([facility]) COVID-19 Clin Com Assessment and Plan (1) Hypoxic respiratory failure: Status: Acute (2) Acute on chronic clinical systolic heart failure: Status: Acute (3) Pneumonia: Status: Acute (4) Pulmonary embolism: Status: Acute Plan 73/F wth DM, HTN, HFrEF, h/o PE, here with Hypoxic respiratory failure likely multifactorial d/t PNA and heart failure, treat underlying issues and aim for O2 of 92, wean off HiFlow Acute on chronic HFrEF -continue IV Lasix, I/O, weight, low salt diet, continue coreg, allergic to ARIELA Elevated troponin I, likely type 2 NSTEMI --seen by card, no further testing at this time Sepsis criteria d/t PNA and UTI, sepsis resolved -Continue Cefepime + Azithro, follow cultures H/o PE. Eliquis CKD 4, stable. HTN continue Coreg and Norvasc History of essential thombocythemia. Platelets are normal. DM2, hyperglycemia, didn't get lantus last night, give 10 now, SSI, Lantus at bedtiem, hold glipizide since NPO, and if eating can resume Dysphagia--speech recommens NDD2, thin liquids Chronic anemia, stable. Continue to monitor hemoglobin. DVT P : eliquis need for inpt: IV diuretics for CHF, IV Abx for sepsis Quality Stroke Does the patient have a stroke diagnosis?: No VTE Prior VTE?: No VTE Risk Level:: Medical - moderate - high VTE Device Contraindication: Treatment Not Indicated VTE Drug Contraindication: N/A - Med Ordered
[2023-06-15 11:46] LABS: Glucose, Whole Blood 403 mg/dL (60-115)
[2023-06-15] MEDS: Insulin Glargine,Hum.rec.anlog 100 UNIT/ML 10 ML VIAL 10 UNIT SUBCUT ×2 (12:10→21:30)
--- NOTE | 2023-06-15 13:26 | MHC.CLN ---
RE: CONSULT PT WITH INCREASED NUTRITION RISK R/T PRESSURE INJURY PT WITH 10% NONSIGNIFICANT WT LOSS X 10 MONTHS DIET RX: 1800DM GRD M/S-APPROPRIATE RECOMMEND ADDING ENSURE MAX BID TO PROMOTE WOUND HEALING SUPP PROVIDES 300KCALS, 60G PROTEIN MONITOR PO INTAKE AND ENCOURAGE SUPPLEMENT SEE ALSO FULL CLINICAL NUTRITION ASSESSMENT
--- NOTE | 2023-06-15 14:08 | MHC.SL.SWA ---
Speech Pathologist Impression: Risk of aspiration, oropharyngeal dysphagia Risk of Aspiration Due to: Neurological Condition History of Pneumonia Dysphasia Diet Status: Start on NDD2/THIN Liquid Consistency and Strategies for Safe Swallow: Liquid Intake Recommendation: Thin Liquid Intake Strategies: Small Sips No Straws Solid Food Consistency: Dietary Recommendations: Grnd/Mech Altered (NDD2) Additional Modifications to Solid Foods: Recommend UPGRADE from NPO, START on GROUND/MECH ALTERED (NDD2) diet with THIN liquids, pills WHOLE in PUREE. Provide 1:1 assistance feeding and maintain standard aspiration precautions. Oral Medication Intake: Whole with Puree Please contact the pharmacy regarding appropriate crushable or liquid drug formulations that are available whenever modified delivery is recommended. Compensatory Strategies and Precautions to be Taken for Safe Swallow: Sitting Upright (90 deg) Double Swallow No Straw Small Bites and Sips Rate of Ingestion Change Avoid Specific Foods Supervision While Eating and Drinking for Safe Swallow: Total Assistance (1:1) Foods to Avoid: Hard, crunchy, or sticky foods Swallowing Recommended Treatments: Compens. Strategy Educat. Recommendation for Speech: Inpatient Speech Therapy Comment: 1:1 assistance feeding Frequency/Duration: PRN M-F Date Range for Service Req: Timeline to reassess: Pig Farm Manager Clinican/Clinical Fellow: No Supervisory Statement: I have reviewed and agree with the student/clinical fellow's documentation: N/A Speech Language Pathologist: Shanna Rodriguez M.A., CCC-INDUSTRIAL CHEMISTRY TEACHER
[2023-06-15 16:49] LABS: Glucose, Whole Blood 426 mg/dL (60-115)
[2023-06-15] MEDS: Insulin Regular, Human 100 UNIT/ML 3 ML VIAL 10 UNIT IVPUSH (17:17)
[2023-06-15 17:50] LABS: Anion Gap 19 (12-20); Blood Urea Nitrogen 62 mg/dL (9-16); Calcium 10.1 mg/dL (8.4-10.2); Carbon Dioxide 21 mmol/L (22-29); Chloride 97 mmol/L (96-108); Creatinine Clr Calc Pharmacy 16.5; Estimated Glomerular Filt Rate 21; Glucose Random 502 mg/dL (60-115); Potassium 4.2 mmol/L (3.3-5.1); Sodium 133 mmol/L (135-145)
[2023-06-15 17:54] LABS: Glucose, Whole Blood 420 mg/dL (60-115)
[2023-06-15] MEDS: Sodium Chloride 0.45 % 1,000 ML 150 ML IVCONT (18:07)
[2023-06-15 18:48] LABS: Glucose, Whole Blood 361 mg/dL (60-115)
[2023-06-15] MEDS: Insulin Lispro 100 UNIT/ML 3 ML VIAL 7 UNIT SUBCUT (19:25)
[2023-06-15 20:46] LABS: Glucose, Whole Blood 273 mg/dL (60-115)
--- NOTE | 2023-06-15 20:49 | PM.EVENT ---
Event Note Date of Service: 06/15/23 Event Note: Pt's blood sugars have been high throuhout the day, was given half of her usual bedtime Lantus in the morning in addition to sliding scale. Additional was given IV insulin and IVF fluid to drive sugar down. BMP show no DKA, sugars are now down considerably. Will give other half of daily lantus and HS and continue monitoring sugars until AM Additonally Doxy added for positive MRSA and positive S. 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
[2023-06-15] MEDS: Doxycycline Hyclate 100 MG in 0.9 % Sodium Chloride 250 ML 166.67 MG IV (21:27)
[2023-06-15 23:32] LABS: Glucose, Whole Blood 183 mg/dL (60-115)
[2023-06-16] MEDS: Mupirocin 2 % Oint 22 GM TUBE 1 APPL TOPICAL ×2 (01:18→08:59)
[2023-06-16] MEDS: cefEPime HCl 1 GM in 0.9 % Sodium Chloride 50 ML IV (01:21)
[2023-06-16 03:24] VITALS: BP 139/60; PULSE 79; RESP 18; TEMP 37; O2SAT 95
[2023-06-16 03:33] LABS: Glucose, Whole Blood 200 mg/dL (60-115)
[2023-06-16] MEDS: Insulin Lispro 100 UNIT/ML 3 ML VIAL SUBCUT ×3 (05:09→17:10)
[2023-06-16] MEDS: Pantoprazole Sodium 40 MG/10 ML VIAL IVPUSH (05:09)
[2023-06-16 06:00] VITALS: BMI 24.4
[2023-06-16 07:31] VITALS: BP 110/64; PULSE 121; RESP 20; TEMP 36.6; O2SAT 92
--- NOTE | 2023-06-16 07:41 | ECG_ITS ---
Test Reason : tachycardia Blood Pressure : / mmHG Vent. Rate : 095 BPM Atrial Rate : 000 BPM P-R Int : 000 ms QRS Dur : 160 ms QT Int : 402 ms P-R-T Axes : 000 126 -49 degrees QTc Int : 505 ms Atrial fibrillation with premature ventricular or aberrantly conducted complexes Non-specific intra-ventricular conduction block Left ventricular hypertrophy with repolarization abnormality ( [place] product ) Abnormal ECG When compared with ECG of 14-JUN-2023 13:53, Atrial fibrillation has replaced Sinus rhythm Non-specific intra-ventricular conduction block has replaced Left bundle branch block Referred By: Deb Escamilla Electronically Signed By:Nicolás Godwin
[2023-06-16 08:10] LABS: Anion Gap 17 (12-20); Blood Urea Nitrogen 62 mg/dL (9-16); Calcium 10.5 mg/dL (8.4-10.2); Carbon Dioxide 25 mmol/L (22-29); Chloride 97 mmol/L (96-108); Creatinine Clr Calc Pharmacy 21.4; Estimated Glomerular Filt Rate 26; Glucose Random 158 mg/dL (60-115); Potassium 3.3 mmol/L (3.3-5.1); Sodium 136 mmol/L (135-145)
--- NOTE | 2023-06-16 08:18 | PC.NURSE ---
pt rhythm changed to SVT this AM. pt asymptomatic, vitals WNL. informed and ECG obtained while Md at bedside. afterwards rhythm changed to afib/afib RVR. informed.
[2023-06-16] MEDS: Potassium Chloride ER 10 MEQ TABLET.ER 40 MEQ PO (08:48)
[2023-06-16] MEDS: Doxycycline Hyclate 100 MG in 0.9 % Sodium Chloride 250 ML 166.67 MG IV ×2 (08:48→20:32)
[2023-06-16] MEDS: amLODIPine Besylate 10 MG TABLET PO (08:48)
[2023-06-16] MEDS: Apixaban 2.5 MG TABLET PO ×2 (08:48→20:19)
[2023-06-16] MEDS: Aspirin Enteric Coated 81 MG TABLET.DR PO (08:48)
[2023-06-16] MEDS: Acetaminophen 325 MG TABLET 650 MG PO (08:48)
[2023-06-16] MEDS: carvediloL 12.5 MG TABLET PO ×2 (08:48→20:19)
[2023-06-16] MEDS: Furosemide 100 MG/10 ML VIAL 60 MG IVPUSH (08:49)
--- NOTE | 2023-06-16 08:51 | HO.PM.IMPN ---
Subjective Subjective Date of Service: 06/16/23 Interval History: Had an episode of atrial flutter with RVR that lasted for one min and self resolved. Pt on 5L supplemental oxygen and denies any complaints. Review of Systems Limited due to mental status. Constitutional Constitutional: Reports no additional constitutional complaints Cardiovascular Cardiovascular: Reports no additional cardiovascular complaints Respiratory Respiratory: Reports no additional respiratory complaints Physical Exam Vital Signs: Vital Signs: Last Vital Signs Temp 97.9 F 06/16/23 07:31 Pulse 121 H 06/16/23 07:31 Resp 20 06/16/23 07:31 BP 110/64 06/16/23 07:31 Pulse Ox 92 06/16/23 07:31 O2 Del Method Nasal Cannula 06/16/23 07:31 O2 Flow Rate 5 06/16/23 07:31 FiO2 35.1 06/15/23 11:44 Oxygen Flow Rate 40 06/14/23 13:38 BMI result Body Mass Index 24.4 Const: Other: General: alert, anxious, no acute distress Resp: rhonchi b/l CVS: S1,S2,RRR, 1+ leg edema GI: +BS, NT, no distention Skin: No rash Neuro: motor grossly intact Psych:anxious Objective Data Active Medications Acetaminophen (Acetaminophen 325 Mg Tablet) 650 mg PO Q6H PRN PRN Reason: Pain, Mild (Pain Scale 1-3) Albuterol/Ipratropium (Albuterol/Iprat 2.5/0.5mg 3 Ml Ampul.Neb) 3 ml INHALE RQ4H WHILE AWAKE PRN PRN Reason: Shortness of Breath/Wheezing Amlodipine Besylate (Amlodipine Besylate 10 Mg Tablet) 10 mg PO DAILY REPLACED BY [facility]; Protocol Last Admin: 06/15/23 08:36 Dose: 10 mg Documented By: ALEX Apixaban (Apixaban 2.5 Mg Tablet) 2.5 mg PO BID REPLACED BY [facility] Last Admin: 06/15/23 21:30 Dose: 2.5 mg Documented By: OLMAN Aspirin (Aspirin Enteric Coated 81 Mg Tablet.) 81 mg PO DAILY REPLACED BY [facility] Last Admin: 06/15/23 08:35 Dose: 81 mg Documented By: ALEX Carvedilol (Carvedilol 12.5 Mg Tablet) 12.5 mg PO BID REPLACED BY [facility]; Protocol Last Admin: 06/15/23 21:30 Dose: 12.5 mg Documented By: OLMAN Dextrose (Dextrose 50 % 25 Gm/50 Ml Syringe) 25 gm IVPUSH Q15M PRN; Protocol PRN Reason: per Hypoglycemia Standing Ord. Furosemide (Furosemide 100 Mg/10 Ml Vial) 60 mg IVPUSH DAILY REPLACED BY [facility]; Protocol Last Admin: 06/15/23 08:36 Dose: 60 mg Documented By: ALEX Glucose (Glucose Gel 15 Gm Gel..Gram.) 15 gm PO Q15M PRN; Protocol PRN Reason: per Hypoglycemia Standing Ord. Cefepime HCl 1 gm/ Sodium (Chloride) 50 mls @ 100 mls/hr IV Q12H REPLACED BY [facility] Last Infusion: 06/16/23 02:05 Dose: Infused Documented By: OLMAN Azithromycin 500 mg/ Sodium (Chloride) 250 mls @ 125 mls/hr IV Q24H REPLACED BY [facility] Last Infusion: 06/16/23 01:39 Dose: Infused Documented By: OLMAN Doxycycline Hyclate 100 mg/ (Sodium Chloride) 250 mls @ 166.67 mls/hr IV BID REPLACED BY [facility] Last Infusion: 06/15/23 23:28 Dose: Infused Documented By: ANGELICA Insulin Glargine (Insulin Glargine,Hum.Rec.Anlog 100 Unit/Ml 10 Ml Vial) 10 unit SUBCUT BEDTIME REPLACED BY [facility] Last Admin: 06/15/23 21:30 Dose: 10 unit Documented By: OLMAN Insulin Human Lispro (Insulin Lispro 100 Unit/Ml 3 Ml Vial) 0 unit SUBCUT Q6H REPLACED BY [facility]; Protocol Last Admin: 06/16/23 05:09 Dose: 2 unit Documented By: OLMAN Mupirocin (Mupirocin 2 % Oint 22 Gm Tube) 1 appl TOPICAL BID REPLACED BY [facility]; Protocol Last Admin: 06/16/23 01:18 Dose: 1 appl Documented By: OLMAN Pantoprazole Sodium (Pantoprazole Sodium 40 Mg/10 Ml Vial) 40 mg IVPUSH DAILY@0630 REPLACED BY [facility] Last Admin: 06/16/23 05:09 Dose: 40 mg Documented By: OLMAN Potassium Chloride (Potassium Chloride Er 10 Meq Tablet.Er) 40 meq PO DAILY REPLACED BY [facility] Last Admin: 06/15/23 08:36 Dose: 40 meq Documented By: ALEX Sodium Chloride (0.9 % Sodium Chloride Flush 3 Ml Syringe) 3 ml IVFLUSH QSHIFT REPLACED BY [facility] Last Admin: 06/16/23 07:31 Dose: Not Given Documented By: GILDARDO Non-Admin Reason: See Note Labs 06/15/23 06:22 06/16/23 07:28 Labs: Laboratory Results - last 24 hr 06/15/23 06/15/23 06/15/23 11:41 16:45 17:29 Anion Gap 19 Estim Creat Clear Calc 16.5 Estimated GFR 21 POC Glucose 403 H* 426 H* Random Glucose 502 H* Calcium 10.1 06/15/23 06/15/23 06/15/23 17:50 18:44 20:25 Anion Gap Estim Creat Clear Calc Estimated GFR POC Glucose 420 H* 361 H* 273 H Random Glucose Calcium 06/15/23 06/16/23 06/16/23 23:19 03:29 07:28 Anion Gap 17 Estim Creat Clear Calc 21.4 Estimated GFR 26 POC Glucose 183 H 200 H Random Glucose 158 H Calcium 10.5 H Microbiology Microbiology Results: Microbiology 06/14/23 15:32 Urine Culture - Final Urine clean catch - Urine hickman top Escherichia coli 06/14/23 14:12 Blood Culture - Preliminary Blood - Venous No growth after 24 hours. 06/14/23 14:04 Blood Culture - Preliminary Blood - Venous No growth after 24 hours. Assessment and Plan (1) Acute on chronic clinical systolic heart failure: Status: Acute Plan 73/F wth DM, HTN, HFrEF, h/o PE, here with: Hypoxic respiratory failure likely multifactorial d/t PNA and heart failure, treat underlying issues and aim for O2 of 92, wean off O2 Acute on chronic HFrEF -continue IV Lasix, I/O, weight, low salt diet, continue coreg, allergic to ARIELA. Cardiology on board Elevated troponin I, likely type 2 NSTEMI --seen by card, no further testing at this time Sepsis criteria d/t PNA and UTI -Urine culture with ESBL. Initiating meropenem (06/16). Nasal screen + for MRSA. Follow blood cultures. -Sepsis resolved, WBC trended down Paroxysmal atrial flutter Had an episode of RVR which lasted for about a minute and self-resolved. Patient on anticoagulation. Continue to monitor. H/o PE. Eliquis CKD 4, stable. HTN continue Coreg and Norvasc History of essential thombocythemia. Platelets are normal. DM2, hyperglycemia, On basal plus insulin regimen Dysphagia--speech recommens NDD2, thin liquids Chronic anemia, stable. Continue to monitor hemoglobin. DVT P : eliquis need for inpt: IV diuretics for CHF, IV Abx for ESBL UTI/PNA Quality Stroke Does the patient have a stroke diagnosis?: No VTE Prior VTE?: No VTE Risk Level:: Medical - moderate - high VTE Device Contraindication: Treatment Not Indicated VTE Drug Contraindication: N/A - Med Ordered
[2023-06-16 11:47] VITALS: BP 129/62; PULSE 78; RESP 20; TEMP 36.7; O2SAT 95
[2023-06-16 11:54] LABS: Glucose, Whole Blood 281 mg/dL (60-115)
--- NOTE | 2023-06-16 13:15 | P.PNCA_ITS ---
Subjective Subjective Date of Service: 06/16/23 Interval history: Seen and examined at bedside. Breathing improving. Not on high-flow oxygen anymore. Physical Exam Vital Signs: Last Vital Signs Temp 98.1 F 06/16/23 11:47 Pulse 78 06/16/23 11:47 Resp 20 06/16/23 11:47 BP 129/62 06/16/23 11:47 Pulse Ox 95 06/16/23 11:47 O2 Del Method Nasal Cannula 06/16/23 11:47 O2 Flow Rate 5 06/16/23 11:47 FiO2 35.1 06/15/23 11:44 Oxygen Flow Rate 40 06/14/23 13:38 BMI result Body Mass Index 24.4 GENERAL APPEARANCE: On nasal cannula. NECK: no carotid bruit, no obvious jugular venous distention. SKIN: no suspicious lesions, warm and dry. HEART: no murmurs, regular rate and rhythm. LUNGS: Crackles left base. ABDOMEN: soft, nontender. EXTREMITIES: no edema. PERIPHERAL PULSES: equal. NEUROLOGIC: Previous CVA affecting the right side of the body with hemiparesis in the right leg. Objective Labs and Meds 06/15/23 06:22 06/16/23 07:28 Lab results: Laboratory Results - last 24 hr 06/15/23 06/15/23 06/15/23 16:45 17:29 17:50 Sodium 133 L Potassium 4.2 Chloride 97 Carbon Dioxide 21 L Anion Gap 19 BUN 62 H Creatinine 2.25 H Estim Creat Clear Calc 16.5 Estimated GFR 21 POC Glucose 426 H* 420 H* Random Glucose 502 H* Calcium 10.1 06/15/23 06/15/23 06/15/23 18:44 20:25 23:19 Sodium Potassium Chloride Carbon Dioxide Anion Gap BUN Creatinine Estim Creat Clear Calc Estimated GFR POC Glucose 361 H* 273 H 183 H Random Glucose Calcium 06/16/23 06/16/23 06/16/23 03:29 07:28 11:46 Sodium 136 Potassium 3.3 D Chloride 97 Carbon Dioxide 25 Anion Gap 17 BUN 62 H Creatinine 1.89 H Estim Creat Clear Calc 21.4 Estimated GFR 26 POC Glucose 200 H 281 H Random Glucose 158 H Calcium 10.5 H Progress Note: A&P Assessment and plan (1) Acute on chronic clinical systolic heart failure: Status: Acute Plan [age] year female presenting for shortness of breath. Clinically she was in heart failure and was diuresed. She appears to be euvolemic at this stage. Blood pressure is well controlled currently. I think most of her bleeding issues now are due to pneumonia. She also has an ESBL UTI. She is on broad- spectrum antibiotics. I think she can be transitioned to oral diuretics at this stage. Thank you for allowing me to participate in the care of your patient. Please feel free to contact me if you have any questions. Time Spent With Patient Time: Total time managing care of this patient today ____ minutes. Progress Note: Quality Stroke Does the patient have a stroke diagnosis?: No Procedures Date of Service Date of Service: 06/16/23
[2023-06-16 15:21] LABS: Thyroid Stimulating Hormone 1.27 uIU/mL (0.32-4.0)
[2023-06-16 15:28] VITALS: BP 123/63; PULSE 79; RESP 20; TEMP 36.1; O2SAT 92
[2023-06-16 17:09] LABS: Glucose, Whole Blood 168 mg/dL (60-115)
[2023-06-16 19:21] VITALS: BP 137/60; PULSE 85; RESP 20; TEMP 36.6; O2SAT 88
[2023-06-16] MEDS: LORazepam 0.5 MG TABLET PO (20:19)
[2023-06-16] MEDS: Potassium Chloride ER 20 MEQ TAB.ER.PRT 40 MEQ PO (20:32)
[2023-06-16] MEDS: 0.9 % Sodium Chloride Flush 3 ML SYRINGE IVFLUSH (20:36)
[2023-06-16] MEDS: Albuterol/Iprat 2.5/0.5MG 3 ML AMPUL.NEB INHALE (20:45)
[2023-06-16 20:46] VITALS: PULSE 84; RESP 20; O2SAT 91
[2023-06-16 20:51] LABS: Glucose, Whole Blood 130 mg/dL (60-115)
[2023-06-16] MEDS: Insulin Glargine,Hum.rec.anlog 100 UNIT/ML 10 ML VIAL 10 UNIT SUBCUT (21:32)
--- NOTE | 2023-06-16 23:42 | W.PM.IDCN ---
History of Present Illness Data of Consult Service Date: 06/16/23 Requesting physician: Roberto Escamilla Primary Care Provider: Israel Figueredo MD [facility] Reason for consult: hypoxia She presents with shortness of breath for last day. She has basilar consolidation She has hypoxia. She has had CVA and DM Review of Systems Review of Systems: Yes all other systems are reviewed and are negative PMFSH Past Medical History Medical History Atrial fibrillation with rapid ventricular response Essential thrombocythemia Rheumatic valvular disease Hyperlipemia HTN (hypertension) Atrial fibrillation CKD (chronic kidney disease) stage 3, GFR 30-59 ml/min Diabetes mellitus Aphasia Chronic ischemic left MCA stroke Family History Family history: reviewed and not pertinent Social History Social History Household Members: Friend(s) Household Members Other:: daughter Housing: Apartment Do you presently have visiting nurse or other home services: Yes (pt currently at [facility]) Patient Tobacco Use Status: Never used Tobacco Advance Directives Date on File: 03/13/23 service: No Meds Allergies Allergy/AdvReac Type Severity Reaction Status Date / Time lisinopril Allergy Unknown Unknown Verified 03/12/23 23:14 atorvastatin AdvReac Unknown Unknown Verified 03/12/23 23:14 metformin AdvReac Unknown Unknown Verified 03/12/23 23:14 spironolactone AdvReac Unknown Unknown Verified 03/12/23 23:14 Active Medications: Current Medications Acetaminophen (Acetaminophen 325 Mg Tablet) 650 mg PO Q6H PRN PRN Reason: Pain, Mild (Pain Scale 1-3) Last Admin: 06/16/23 08:48 Dose: 650 mg Albuterol/Ipratropium (Albuterol/Iprat 2.5/0.5mg 3 Ml Ampul.Neb) 3 ml INHALE RQ4H WHILE AWAKE PRN PRN Reason: Shortness of Breath/Wheezing Last Admin: 06/16/23 20:45 Dose: 3 ml Amlodipine Besylate (Amlodipine Besylate 10 Mg Tablet) 10 mg PO DAILY [facility]; Protocol Last Admin: 06/16/23 08:48 Dose: 10 mg Apixaban (Apixaban 2.5 Mg Tablet) 2.5 mg PO BID [facility] Last Admin: 06/16/23 20:19 Dose: 2.5 mg Aspirin (Aspirin Enteric Coated 81 Mg Tablet.Dr) 81 mg PO DAILY [facility] Last Admin: 06/16/23 08:48 Dose: 81 mg Carvedilol (Carvedilol 12.5 Mg Tablet) 12.5 mg PO BID [facility]; Protocol Last Admin: 06/16/23 20:19 Dose: 12.5 mg Dextrose (Dextrose 50 % 25 Gm/50 Ml Syringe) 25 gm IVPUSH Q15M PRN; Protocol PRN Reason: per Hypoglycemia Standing Ord. Furosemide (Furosemide 100 Mg/10 Ml Vial) 60 mg IVPUSH DAILY [facility]; Protocol Last Admin: 06/16/23 08:49 Dose: 60 mg Glucose (Glucose Gel 15 Gm Gel..Gram.) 15 gm PO Q15M PRN; Protocol PRN Reason: per Hypoglycemia Standing Ord. Doxycycline Hyclate 100 mg/ (Sodium Chloride) 250 mls @ 166.67 mls/hr IV BID [facility] Last Admin: 06/16/23 20:32 Dose: 166.67 mls/hr Meropenem 1 gm/ Sodium (Chloride) 100 mls @ 200 mls/hr IV Q12H [facility] Last Infusion: 06/16/23 12:04 Dose: Infused Insulin Glargine (Insulin Glargine,Hum.Rec.Anlog 100 Unit/Ml 10 Ml Vial) 10 unit SUBCUT BEDTIME [facility] Last Admin: 06/16/23 21:32 Dose: 10 unit Insulin Human Lispro (Insulin Lispro 100 Unit/Ml 3 Ml Vial) 0 unit SUBCUT Q6H [facility]; Protocol Last Admin: 06/16/23 23:24 Dose: Not Given Mupirocin (Mupirocin 2 % Oint 22 Gm Tube) 1 appl TOPICAL BID [facility]; Protocol Last Admin: 06/16/23 08:59 Dose: 1 appl Pantoprazole Sodium (Pantoprazole Sodium 40 Mg/10 Ml Vial) 40 mg IVPUSH DAILY@0630 [facility] Last Admin: 06/16/23 05:09 Dose: 40 mg Potassium Chloride (Potassium Chloride Er 10 Meq Tablet.Er) 40 meq PO DAILY [facility] Last Admin: 06/16/23 08:48 Dose: 40 meq Sodium Chloride (0.9 % Sodium Chloride Flush 3 Ml Syringe) 3 ml IVFLUSH QSHIFT [facility] Last Admin: 06/16/23 20:36 Dose: 3 ml Home Medications Medication Instructions Recorded Confirmed Last Taken Type amlodipine 10 mg tablet 10 mg PO DAILY 03/13/23 06/14/23 Unknown History aspirin 81 mg tablet,delayed 81 mg PO DAILY 03/13/23 06/14/23 Unknown History release carvedilol 12.5 mg tablet 12.5 mg PO BID 03/13/23 06/14/23 Unknown History glipizide 10 mg tablet 10 mg PO DAILY 03/13/23 06/14/23 Unknown History insulin glargine 100 unit/mL (3 20 unit subcut BEDTIME 03/13/23 06/14/23 Unknown History mL) subcutaneous pen (Lantus Solostar U-100 Insulin) melatonin 3 mg tablet 3 mg PO BEDTIME PRN Sleep 03/13/23 06/14/23 Unknown History potassium chloride 10 mEq 40 meq PO DAILY 03/13/23 06/14/23 Unknown History capsule,extended release sodium bicarbonate 650 mg tablet 1,300 mg PO DAILY 03/13/23 06/14/23 Unknown History furosemide 20 mg tablet 20 mg PO BID 06/14/23 06/14/23 Unknown History insulin aspart U-100 100 unit/mL 0 sliding scale dose subcut QIDACHS 06/14/23 06/14/23 Unknown History (3 mL) subcutaneous pen sodium chloride 1 gram tablet 1 g PO QAM 06/14/23 06/14/23 Unknown History tramadol 50 mg tablet 25 mg PO Q6H PRN Pain 06/14/23 06/14/23 Unknown History trazodone 50 mg tablet 25 mg PO BID 06/14/23 06/14/23 Unknown History Physical Exam Vital Signs: Vital Signs: Last Vital Signs Temp 98 F 06/16/23 19:21 Pulse 84 06/16/23 20:46 Resp 20 06/16/23 20:46 BP 137/60 06/16/23 19:21 Pulse Ox 88 L 06/16/23 19:21 O2 Del Method Nasal Cannula 06/16/23 19:21 O2 Flow Rate 5 06/16/23 19:21 FiO2 35.1 06/15/23 11:44 Oxygen Flow Rate 40 06/14/23 13:38 BMI result Body Mass Index 24.4 Const: General: cooperative HEENT: Head: Yes normal to inspection Face and sinus: Yes normal facial exam Mouth: Normal oral and palatal mucosa present Teeth and gingiva: dentition normal Eyes: General: appearance normal, both eyes and all related structures Pupils: Equal, round and reactive pupils present Resp: Effort & Inspection: normal respiratory effort Cardio: Rate: regular rate Rhythm: regular rhythm GI: Palpation (GI): Soft to palpation and nontender : General: Yes no CVA tenderness Back/Spine/Pelvis: Back: no CVA tenderness Skin: General skin exam: no rashes or lesions noted Neuro: General: moves all extremities Cranial nerves: Yes Equal, round and reactive pupils present Extrem: General: Yes normal to inspection Psych: Appearance: grossly normal Results Labs 06/15/23 06:22 06/16/23 07:28 Labs: BMP 06/16/23 07:28 Sodium 136 Potassium 3.3 D Chloride 97 Carbon Dioxide 25 BUN 62 H Creatinine 1.89 H Calcium 10.5 H Microbiology Microbiology Results: Microbiology 06/14/23 14:12 Blood - Venous Blood Culture - Preliminary No growth after 48 hours. 06/14/23 14:04 Blood - Venous Blood Culture - Preliminary No growth after 48 hours. 06/14/23 15:32 Urine clean catch - Urine hickman top Urine Culture - Final Escherichia coli Assessment and Plan (1) Hypoxic respiratory failure: Qualifiers: Chronicity: acute Qualified Code(s): J96.01 - Acute respiratory failure with hypoxia Status: Acute She has no signs of UTI but has basilar infiltrates. SHe has procalcitonin of 1.35. She has MRSA nasal (2) Acute on chronic clinical systolic heart failure: Status: Acute Plan Would continue Doxycycline possible 7 days change to po Would stop Merem at this time;has had Cdiff and has MRSA.
[2023-06-17] VITALS (7 sets, daily range): BP systolic 117–160; BP diastolic 55–83; PULSE 71–106; RESP 16–30; TEMP 36.6–37.2; O2SAT 89–93; BMI 24.7
[2023-06-17 00:16] LABS: Glucose, Whole Blood 150 mg/dL (60-115)
[2023-06-17 05:15] LABS: Glucose, Whole Blood 146 mg/dL (60-115)
[2023-06-17] MEDS: Pantoprazole Sodium 40 MG/10 ML VIAL IVPUSH (05:31)
[2023-06-17 06:15] LABS: MANUAL DIFF FLAG NO
[2023-06-17 06:32] LABS: Basophils Percent Auto 0.2 % (0-2); Eosinophils Absolute Auto 0.1 X10*3/uL (0.0-0.4); Eosinophils Percent Auto 0.9 % (0-4); Hematocrit 28.6 % (37.0-47.0); Hemoglobin 9.3 g/dl (12.0-16.0); Imm Gran Abs Auto 0.05 X10*3/uL (0.00-0.03); Imm Gran Pct Auto 0.5 % (0.0-0.4); Lymphocytes Absolute Auto 1.5 X10*3/uL (1.2-4.9); Lymphocytes Percent Auto 14.6 % (20-40); Mean Corpuscular HGB Conc 32.5 g/dl (31.0-35.0); Mean Corpuscular Hemoglobin 25.2 pg (27.0-33.0); Mean Corpuscular Volume 77.5 fL (80.0-98.0); Mean Platelet Volume 10.8 fL (9.4-12.3); Monocytes Percent Auto 10.5 % (2-11); Neutrophils Absolute Auto 7.3 x10*3/uL (2.0-8.3); Neutrophils Percent Auto 73.3 % (45-73); Platelet Count 358 X10*3/uL (160-400); Red Blood Count 3.69 X10*6/uL (4.20-5.50); Red Cell Distribution Width 14.4 % (11.0-16.0); White Blood Count 9.9 X10*3/uL (4.8-10.8)
[2023-06-17 06:41] LABS: Anion Gap 16 (12-20); Blood Urea Nitrogen 58 mg/dL (9-16); Calcium 9.9 mg/dL (8.4-10.2); Carbon Dioxide 24 mmol/L (22-29); Chloride 102 mmol/L (96-108); Creatinine Clr Calc Pharmacy 25.8; Estimated Glomerular Filt Rate 32; Glucose Random 152 mg/dL (60-115); Potassium 3.5 mmol/L (3.3-5.1); Sodium 138 mmol/L (135-145)
[2023-06-17 06:44] LABS: Magnesium 1.9 mg/dL (1.6-2.6)
[2023-06-17] MEDS: 0.9 % Sodium Chloride Flush 3 ML SYRINGE IVFLUSH ×2 (09:13→18:34)
[2023-06-17] MEDS: amLODIPine Besylate 10 MG TABLET PO (09:13)
[2023-06-17] MEDS: Apixaban 2.5 MG TABLET PO ×2 (09:13→21:22)
[2023-06-17] MEDS: Aspirin Enteric Coated 81 MG TABLET.DR PO (09:13)
[2023-06-17] MEDS: carvediloL 12.5 MG TABLET PO ×2 (09:14→21:22)
[2023-06-17] MEDS: Doxycycline Hyclate 100 MG in 0.9 % Sodium Chloride 250 ML 166.67 MG IV ×2 (09:14→21:21)
[2023-06-17] MEDS: Potassium Chloride ER 10 MEQ TABLET.ER 40 MEQ PO (09:16)
[2023-06-17] MEDS: Furosemide 100 MG/10 ML VIAL 60 MG IVPUSH (10:20)
[2023-06-17] MEDS: Albuterol/Iprat 2.5/0.5MG 3 ML AMPUL.NEB INHALE (11:15)
[2023-06-17 12:16] LABS: Glucose, Whole Blood 254 mg/dL (60-115)
[2023-06-17] MEDS: Isosorbide Mononitrate 30 MG TAB.ER.24H PO (12:17)
[2023-06-17] MEDS: Insulin Lispro 100 UNIT/ML 3 ML VIAL SUBCUT ×2 (12:18→21:30)
--- NOTE | 2023-06-17 12:53 | HO.PM.IMPN ---
Subjective Subjective Date of Service: 06/17/23 Interval History: Slowly improving. No acute issues overnight Review of Systems Aphasic. Unable to obtain Physical Exam Vital Signs: Vital Signs: Last Vital Signs Temp 98.3 F 06/17/23 12:00 Pulse 89 06/17/23 12:00 Resp 19 06/17/23 12:00 BP 134/57 L 06/17/23 12:00 Pulse Ox 89 L 06/17/23 12:00 O2 Del Method Nasal Cannula 06/17/23 07:58 O2 Flow Rate 5 06/17/23 07:58 FiO2 35.1 06/15/23 11:44 Oxygen Flow Rate 40 06/14/23 13:38 BMI result Body Mass Index 24.7 Const: Other: Awake alert ; aphasic in no acute distress Resp: Other: Diminished at bases with scant expiratory wheezes throughout Cardio: Other: No S4; positive S1-S2; no S3 murmurs rubs or gallops GI: Other: Soft nontender nondistended normoactive bowel sounds Extrem: Other: Extremities without edema Objective Data Active Medications Acetaminophen (Acetaminophen 325 Mg Tablet) 650 mg PO Q6H PRN PRN Reason: Pain, Mild (Pain Scale 1-3) Last Admin: 06/16/23 08:48 Dose: 650 mg Documented By: GILDARDO Albuterol/Ipratropium (Albuterol/Iprat 2.5/0.5mg 3 Ml Ampul.Neb) 3 ml INHALE RQ4H WHILE AWAKE PRN PRN Reason: Shortness of Breath/Wheezing Last Admin: 06/17/23 11:15 Dose: 3 ml Documented By: NEIL Amlodipine Besylate (Amlodipine Besylate 10 Mg Tablet) 10 mg PO DAILY [facility]; Protocol Last Admin: 06/17/23 09:13 Dose: 10 mg Documented By: JESUSMOTORRES Apixaban (Apixaban 2.5 Mg Tablet) 2.5 mg PO BID [facility] Last Admin: 06/17/23 09:13 Dose: 2.5 mg Documented By: SULEMA Aspirin (Aspirin Enteric Coated 81 Mg Tablet.) 81 mg PO DAILY [facility] Last Admin: 06/17/23 09:13 Dose: 81 mg Documented By: SULEMA Carvedilol (Carvedilol 12.5 Mg Tablet) 12.5 mg PO BID [facility]; Protocol Last Admin: 06/17/23 09:14 Dose: 12.5 mg Documented By: SULEMA Dextrose (Dextrose 50 % 25 Gm/50 Ml Syringe) 25 gm IVPUSH Q15M PRN; Protocol PRN Reason: per Hypoglycemia Standing Ord. Furosemide (Furosemide 100 Mg/10 Ml Vial) 60 mg IVPUSH DAILY [facility]; Protocol Last Admin: 06/17/23 10:20 Dose: 60 mg Documented By: SULEMA Glucose (Glucose Gel 15 Gm Gel..Gram.) 15 gm PO Q15M PRN; Protocol PRN Reason: per Hypoglycemia Standing Ord. Doxycycline Hyclate 100 mg/ (Sodium Chloride) 250 mls @ 166.67 mls/hr IV BID [facility] Last Infusion: 06/17/23 10:44 Dose: Infused Documented By: SULEMA Insulin Glargine (Insulin Glargine,Hum.Rec.Anlog 100 Unit/Ml 10 Ml Vial) 10 unit SUBCUT BEDTIME [facility] Last Admin: 06/16/23 21:32 Dose: 10 unit Documented By: COREY Insulin Human Lispro (Insulin Lispro 100 Unit/Ml 3 Ml Vial) 0 unit SUBCUT Q6H [facility]; Protocol Last Admin: 06/17/23 12:18 Dose: 6 unit Documented By: SULEMA Isosorbide Mononitrate (Isosorbide Mononitrate 30 Mg Tab.Er.24h) 30 mg PO DAILY [facility]; Protocol Last Admin: 06/17/23 12:17 Dose: 30 mg Documented By: SULEMA Mupirocin (Mupirocin 2 % Oint 22 Gm Tube) 1 appl TOPICAL BID [facility]; Protocol Last Admin: 06/17/23 10:22 Dose: Not Given Documented By: SULEMA Non-Admin Reason: Med Not Available Pantoprazole Sodium (Pantoprazole Sodium 40 Mg/10 Ml Vial) 40 mg IVPUSH DAILY@0630 [facility] Last Admin: 06/17/23 05:31 Dose: 40 mg Documented By: COREY Potassium Chloride (Potassium Chloride Er 10 Meq Tablet.Er) 40 meq PO DAILY [facility] Last Admin: 06/17/23 09:16 Dose: 40 meq Documented By: SULEMA Sodium Chloride (0.9 % Sodium Chloride Flush 3 Ml Syringe) 3 ml IVFLUSH QSHIFT [facility] Last Admin: 06/17/23 09:13 Dose: 3 ml Documented By: PODMORP Labs 06/17/23 05:24 06/17/23 05:24 Labs: Laboratory Results - last 24 hr 06/16/23 06/16/23 06/16/23 07:28 17:06 20:47 MCV MCH MCHC RDW Plt Count MPV Immature Gran % (Auto) Neut % (Auto) Lymph % (Auto) [place] % (Auto) Eos % (Auto) Baso % (Auto) Lymph # (Auto) [place] # (Auto) Eos # (Auto) Baso # (Auto) Abs Immat Gran (auto) Absolute Neuts (auto) Absolute Nucleated RBC Nucleated RBC % (auto) Anion Gap Estim Creat Clear Calc Estimated GFR POC Glucose 168 H 130 H Random Glucose Calcium Magnesium TSH 1.27 06/17/23 06/17/23 06/17/23 00:02 05:11 05:24 MCV 77.5 L MCH 25.2 L MCHC 32.5 RDW 14.4 Plt Count 358 D MPV 10.8 Immature Gran % (Auto) 0.5 H Neut % (Auto) 73.3 H Lymph % (Auto) 14.6 L [place] % (Auto) 10.5 Eos % (Auto) 0.9 Baso % (Auto) 0.2 Lymph # (Auto) 1.5 [place] # (Auto) 1.0 Eos # (Auto) 0.1 Baso # (Auto) 0.0 Abs Immat Gran (auto) 0.05 H Absolute Neuts (auto) 7.3 Absolute Nucleated RBC 0.000 Nucleated RBC % (auto) 0.0 Anion Gap 16 Estim Creat Clear Calc 25.8 Estimated GFR 32 POC Glucose 150 H 146 H Random Glucose 152 H Calcium 9.9 Magnesium 1.9 TSH 06/17/23 12:12 MCV MCH MCHC RDW Plt Count MPV Immature Gran % (Auto) Neut % (Auto) Lymph % (Auto) [place] % (Auto) Eos % (Auto) Baso % (Auto) Lymph # (Auto) [place] # (Auto) Eos # (Auto) Baso # (Auto) Abs Immat Gran (auto) Absolute Neuts (auto) Absolute Nucleated RBC Nucleated RBC % (auto) Anion Gap Estim Creat Clear Calc Estimated GFR POC Glucose 254 H Random Glucose Calcium Magnesium TSH Microbiology Microbiology Results: Microbiology 06/14/23 14:12 Blood Culture - Preliminary Blood - Venous No growth after 48 hours. 06/14/23 14:04 Blood Culture - Preliminary Blood - Venous No growth after 48 hours. 06/14/23 15:32 Urine Culture - Final Urine clean catch - Urine hickman top Escherichia coli Assessment and Plan (1) Hypoxic respiratory failure: Status: Acute (2) Pneumonia: Status: Acute Plan 73-year-old female presents from local [facility] with complaints of shortness or breath that developed 24 hours before presentation. Chest x-ray concerning for pneumonia 1.Hypoxic respiratory failure... Multifactorial; pneumonia question acute systolic CHF exacerbation -appreciate ID input. -doxycycline 100 mg IV daily(3) -switch to orals upon DC 2.Acute on chronic systolic heart failure HFrEF -was switched to p.o. Lasix at this time -Lasix 20 mg p.o. b.i.d. 3.Paroxysmal atrial fibrillation -acceptable rate control at this time -continue Eliquis -adjust as indicated 4.CKD 4 -at baseline -follow renals/divalents 5.HTN -acceptable control on current therapies -adjust as indicated 6.Type II diabetes -acceptable control on current therapy -lispro correctional scale -adjust as indicated Eliquis DNR/DNI Requires ongoing antibiotics to treat be acquired pneumonia and UTI Quality Stroke Does the patient have a stroke diagnosis?: No VTE Prior VTE?: No VTE Risk Level:: Medical - moderate - high VTE Device Contraindication: Treatment Not Indicated VTE Drug Contraindication: N/A - Med Ordered
[2023-06-17 17:46] LABS: Glucose, Whole Blood 190 mg/dL (60-115)
[2023-06-17] MEDS: Furosemide 20 MG TABLET PO (18:33)
[2023-06-17] MEDS: Insulin Glargine,Hum.rec.anlog 100 UNIT/ML 10 ML VIAL 10 UNIT SUBCUT (21:22)
[2023-06-17] MEDS: Mupirocin 2 % Oint 22 GM TUBE 1 APPL TOPICAL (21:30)
[2023-06-17 21:31] LABS: Glucose, Whole Blood 211 mg/dL (60-115)
[2023-06-18] VITALS (7 sets, daily range): BP systolic 109–132; BP diastolic 56–85; PULSE 66–100; RESP 18–24; TEMP 36.2–36.9; O2SAT 92–98; BMI 25.1
[2023-06-18] MEDS: 0.9 % Sodium Chloride Flush 3 ML SYRINGE IVFLUSH ×2 (00:30→07:39)
[2023-06-18 01:20] LABS: Glucose, Whole Blood 171 mg/dL (60-115)
--- NOTE | 2023-06-18 04:00 | PC.NURSE ---
Pt continues to have runs of wide complex tachycardia,asymptomatic.Dr Reaves updated. aware pt has severe CHF with low EF and states this will happen. added MAG level to AM labs.
[2023-06-18 04:39] LABS: Glucose, Whole Blood 158 mg/dL (60-115)
[2023-06-18] MEDS: Insulin Lispro 100 UNIT/ML 3 ML VIAL SUBCUT ×4 (04:52→21:38)
[2023-06-18] MEDS: Pantoprazole Sodium 40 MG/10 ML VIAL IVPUSH (05:49)
--- NOTE | 2023-06-18 07:25 | PC.NURSE ---
Pt had burst of slow idioventricular rhythmn with pauses up to 3.8 seconds, then resumed afib bbb.Asymptomatic,denied chest pain. notified and updated.Pt resting quietly.No further ectopy at this time.Next shift updated.
[2023-06-18 07:34] LABS: MANUAL DIFF FLAG NO
[2023-06-18] MEDS: ondansetron HCL 4 MG/2 ML VIAL IVPUSH (07:37)
[2023-06-18 07:54] LABS: Basophils Percent Auto 0.3 % (0-2); Eosinophils Absolute Auto 0.2 X10*3/uL (0.0-0.4); Hematocrit 26.2 % (37.0-47.0); Hemoglobin 8.4 g/dl (12.0-16.0); Imm Gran Abs Auto 0.06 X10*3/uL (0.00-0.03); Imm Gran Pct Auto 0.7 % (0.0-0.4); Lymphocytes Absolute Auto 1.4 X10*3/uL (1.2-4.9); Lymphocytes Percent Auto 16.1 % (20-40); Mean Corpuscular HGB Conc 32.1 g/dl (31.0-35.0); Mean Corpuscular Hemoglobin 25.1 pg (27.0-33.0); Mean Corpuscular Volume 78.2 fL (80.0-98.0); Mean Platelet Volume 10.7 fL (9.4-12.3); Monocytes Percent Auto 10.8 % (2-11); Neutrophils Absolute Auto 6.3 x10*3/uL (2.0-8.3); Neutrophils Percent Auto 70.1 % (45-73); Platelet Count 327 X10*3/uL (160-400); Red Blood Count 3.35 X10*6/uL (4.20-5.50); Red Cell Distribution Width 14.3 % (11.0-16.0)
[2023-06-18 08:11] LABS: Alanine Aminotransferase 6 U/L (0-31); Albumin Level 2.7 g/dL (3.5-5.0); Alkaline Phosphatase 61 U/L (39-117); Anion Gap 14 (12-20); Aspartate Amino Transferase 10 U/L (5-31); Blood Urea Nitrogen 52 mg/dL (9-16); Calcium 9.8 mg/dL (8.4-10.2); Carbon Dioxide 25 mmol/L (22-29); Chloride 102 mmol/L (96-108); Estimated Glomerular Filt Rate 35; Glucose Fasting 154 mg/dL (60-99); Magnesium 1.7 mg/dL (1.6-2.6); Potassium 2.9 mmol/L (3.3-5.1); Sodium 138 mmol/L (135-145); Total Protein 5.5 g/dL (6.5-8.0)
[2023-06-18] MEDS: Aspirin Enteric Coated 81 MG TABLET.DR PO (09:14)
[2023-06-18] MEDS: Isosorbide Mononitrate 30 MG TAB.ER.24H PO (09:14)
[2023-06-18] MEDS: Apixaban 2.5 MG TABLET PO ×2 (09:15→21:36)
[2023-06-18] MEDS: Potassium Chloride ER 10 MEQ TABLET.ER 40 MEQ PO (09:15)
[2023-06-18] MEDS: Potassium Chloride Packet 20 MEQ PACKET 40 MEQ PO ×2 (09:15→21:39)
[2023-06-18] MEDS: amLODIPine Besylate 10 MG TABLET PO (09:15)
[2023-06-18] MEDS: Furosemide 20 MG TABLET PO ×2 (09:15→16:50)
[2023-06-18] MEDS: Mupirocin 2 % Oint 22 GM TUBE 1 APPL TOPICAL ×2 (09:16→21:40)
[2023-06-18] MEDS: carvediloL 12.5 MG TABLET PO ×2 (09:16→21:36)
[2023-06-18] MEDS: Doxycycline Hyclate 100 MG in 0.9 % Sodium Chloride 250 ML 166.67 MG IV (09:28)
[2023-06-18] MEDS: Acetaminophen 325 MG TABLET 650 MG PO (09:36)
--- NOTE | 2023-06-18 10:31 | MHC.CLN ---
F/U PT WITH INCREASED NUTRITION RISK R/T PRESSURE INJURY PO INTAKE VARIABLE RANGING FROM 25-100% NOTED WT UP SINCE ADMISSION OVERALL DIET RX: 1800DM GRD M/S-APPROPRIATE PT RECEIVING ENSURE MAX BID TO PROMOTE WOUND HEALING PROVIDES 300KCALS, 60G PROTEIN MONITOR PO INTAKE AND ENCOURAGE SUPPLEMENT
--- NOTE | 2023-06-18 10:40 | MHC.SL.SWA ---
Speech Pathologist Impression: Risk of aspiration, oropharyngeal dysphagia Risk of Aspiration Due to: Neurological Condition History of Pneumonia Dysphasia Diet Status: No changes recommended Liquid Consistency and Strategies for Safe Swallow: Liquid Intake Recommendation: Thin Liquid Intake Strategies: Small Sips Solid Food Consistency: Dietary Recommendations: Grnd/Mech Altered (NDD2) Additional Modifications to Solid Foods: Recommend continue with pt's reported baseline diet of GROUND/MECH ALTERED (NDD2) solids with THIN liquids. Pt requires total 1:1 assistance feeding and takes pills whole with applesauce. Maintain aspiration precautions. ROAD CONSULTANT intervention is no longer warranted at this level of care. Please re-refer with any changes or if ROAD CONSULTANT can be of further assistance. Oral Medication Intake: Whole with Puree Please contact the pharmacy regarding appropriate crushable or liquid drug formulations that are available whenever modified delivery is recommended. Compensatory Strategies and Precautions to be Taken for Safe Swallow: Sitting Upright (90 deg) No Straw Small Bites and Sips Alternate Liquids/Solids Rate of Ingestion Change Avoid Specific Foods Supervision While Eating and Drinking for Safe Swallow: Total Assistance (1:1) Foods to Avoid: Hard, crunchy, or sticky foods Swallowing Recommended Treatments: Compens. Strategy Educat. Recommendation for Speech: D/C Kiln Remover Clinican/Clinical Fellow: No Supervisory Statement: I have reviewed and agree with the student/clinical fellow's documentation: N/A Speech Language Pathologist: Shanna Rodriguez M.A., [facility]-ROAD CONSULTANT
[2023-06-18 11:28] LABS: Glucose, Whole Blood 299 mg/dL (60-115)
--- NOTE | 2023-06-18 12:04 | HE.PHANOTE ---
re doxycycline changed iv doxycycline to po doxycycline per policy/dr andersen
--- NOTE | 2023-06-18 12:21 | P.PNIM_ITS ---
Subjective Subjective Date of Service: 06/18/23 Interval History: No acute issues overnight. Hypokalemic this a.m. Review of Systems Aphasic. Unable to obtain Physical Exam 2 Vital Signs: Vital Signs: Last Vital Signs Temp 97.8 F 06/18/23 11:26 Pulse 73 06/18/23 11:26 Resp 20 06/18/23 11:26 BP 109/56 L 06/18/23 11:26 Pulse Ox 94 06/18/23 11:26 O2 Del Method Nasal Cannula 06/18/23 11:26 O2 Flow Rate 5 06/18/23 11:26 FiO2 35.1 06/15/23 11:44 Oxygen Flow Rate 40 06/14/23 13:38 BMI result Body Mass Index 25.1 Const: Other: Awake alert ; aphasic in no acute distress Resp: Other: Diminished at bases with scant expiratory wheezes throughout Cardio: Other: No S4; positive S1-S2; no S3 murmurs rubs or gallops GI: Other: Soft nontender nondistended normoactive bowel sounds Extrem: Other: Extremities without edema Objective Data Active Medications Acetaminophen (Acetaminophen 325 Mg Tablet) 650 mg PO Q6H PRN PRN Reason: Pain, Mild (Pain Scale 1-3) Last Admin: 06/18/23 09:36 Dose: 650 mg Documented By: ALEX Albuterol/Ipratropium (Albuterol/Iprat 2.5/0.5mg 3 Ml Ampul.Neb) 3 ml INHALE RQ4H WHILE AWAKE PRN PRN Reason: Shortness of Breath/Wheezing Last Admin: 06/17/23 11:15 Dose: 3 ml Documented By: NEIL Amlodipine Besylate (Amlodipine Besylate 10 Mg Tablet) 10 mg PO DAILY [facility]; Protocol Last Admin: 06/18/23 09:15 Dose: 10 mg Documented By: ALEX Apixaban (Apixaban 2.5 Mg Tablet) 2.5 mg PO BID [facility] Last Admin: 06/18/23 09:15 Dose: 2.5 mg Documented By: ALEX Aspirin (Aspirin Enteric Coated 81 Mg Tablet.) 81 mg PO DAILY [facility] Last Admin: 06/18/23 09:14 Dose: 81 mg Documented By: ALEX Carvedilol (Carvedilol 12.5 Mg Tablet) 12.5 mg PO BID [facility]; Protocol Last Admin: 06/18/23 09:16 Dose: 12.5 mg Documented By: ALEX Dextrose (Dextrose 50 % 25 Gm/50 Ml Syringe) 25 gm IVPUSH Q15M PRN; Protocol PRN Reason: per Hypoglycemia Standing Ord. Doxycycline Monohydrate (Doxycycline Monohydrate 100 Mg Capsule) 100 mg PO Q12H [place] Furosemide (Furosemide 20 Mg Tablet) 20 mg PO BID@0900,1800 [facility]; Protocol Last Admin: 06/18/23 09:15 Dose: 20 mg Documented By: ALEX Glucose (Glucose Gel 15 Gm Gel..Gram.) 15 gm PO Q15M PRN; Protocol PRN Reason: per Hypoglycemia Standing Ord. Insulin Glargine (Insulin Glargine,Hum.Rec.Anlog 100 Unit/Ml 10 Ml Vial) 10 unit SUBCUT BEDTIME [facility] Last Admin: 06/17/23 21:22 Dose: 10 unit Documented By: LIZY Insulin Human Lispro (Insulin Lispro 100 Unit/Ml 3 Ml Vial) 0 unit SUBCUT QIDACHS [facility]; Protocol Isosorbide Mononitrate (Isosorbide Mononitrate 30 Mg Tab.Er.24h) 30 mg PO DAILY [facility]; Protocol Last Admin: 06/18/23 09:14 Dose: 30 mg Documented By: ALEX Mupirocin (Mupirocin 2 % Oint 22 Gm Tube) 1 appl TOPICAL BID [facility]; Protocol Last Admin: 06/18/23 09:16 Dose: 1 appl Documented By: ALEX Ondansetron HCl (Ondansetron Hcl 4 Mg/2 Ml Vial) 4 mg IVPUSH Q4H PRN PRN Reason: Nausea and Vomiting Last Admin: 06/18/23 07:37 Dose: 4 mg Documented By: ALEX Potassium Chloride (Potassium Chloride Er 10 Meq Tablet.Er) 40 meq PO DAILY [facility] Last Admin: 06/18/23 09:15 Dose: 40 meq Documented By: ALEX Potassium Chloride (Potassium Chloride Packet 20 Meq Packet) 40 meq PO BID [facility] Stop: 06/19/23 09:01 Last Admin: 06/18/23 09:15 Dose: 40 meq Documented By: ALEX Sodium Chloride (0.9 % Sodium Chloride Flush 3 Ml Syringe) 3 ml IVFLUSH QSHIFT [facility] Last Admin: 06/18/23 07:39 Dose: 3 ml Documented By: ALEX Labs 06/18/23 06:43 06/18/23 06:43 Labs: Laboratory Results - last 24 hr 06/17/23 06/17/23 06/18/23 17:42 21:20 01:11 MCV MCH MCHC RDW Plt Count MPV Immature Gran % (Auto) Neut % (Auto) Lymph % (Auto) [place] % (Auto) Eos % (Auto) Baso % (Auto) Lymph # (Auto) [place] # (Auto) Eos # (Auto) Baso # (Auto) Abs Immat Gran (auto) Absolute Neuts (auto) Absolute Nucleated RBC Nucleated RBC % (auto) Anion Gap Estim Creat Clear Calc Estimated GFR POC Glucose 190 H 211 H 171 H Fasting Glucose Calcium Magnesium Total Bilirubin AST ALT Alkaline Phosphatase Total Protein Albumin 06/18/23 06/18/23 06/18/23 04:33 06:43 11:25 MCV 78.2 L MCH 25.1 L MCHC 32.1 RDW 14.3 Plt Count 327 MPV 10.7 Immature Gran % (Auto) 0.7 H Neut % (Auto) 70.1 Lymph % (Auto) 16.1 L [place] % (Auto) 10.8 Eos % (Auto) 2.0 Baso % (Auto) 0.3 Lymph # (Auto) 1.4 [place] # (Auto) 1.0 Eos # (Auto) 0.2 Baso # (Auto) 0.0 Abs Immat Gran (auto) 0.06 H Absolute Neuts (auto) 6.3 Absolute Nucleated RBC 0.000 Nucleated RBC % (auto) 0.0 Anion Gap 14 Estim Creat Clear Calc 28.0 Estimated GFR 35 POC Glucose 158 H 299 H Fasting Glucose 154 H Calcium 9.8 Magnesium 1.7 Total Bilirubin 1.0 AST 10 ALT 6 Alkaline Phosphatase 61 Total Protein 5.5 L Albumin 2.7 L Assessment and Plan (1) Hypoxic respiratory failure: Status: Acute (2) Pneumonia: Status: Acute Plan 73-year-old female presents from local [place] with complaints of shortness or breath that developed 24 hours before presentation. Chest x-ray concerning for pneumonia 1.Hypoxic respiratory failure... Multifactorial; pneumonia question acute systolic CHF exacerbation -appreciate ID input. -doxycycline 100 mg IV daily(3)... Switch to p.o. at this time -complete course as outpatient 2.Acute on chronic systolic heart failure HFrEF -was switched to p.o. Lasix at this time -Lasix 20 mg p.o. b.i.d. -will replete potassium today -follow renals/divalents in am 3.Paroxysmal atrial fibrillation -acceptable rate control at this time -continue Eliquis -adjust as indicated 4.CKD 4 -at baseline -follow renals/divalents 5.HTN -acceptable control on current therapies -adjust as indicated 6.Type II diabetes -acceptable control on current therapy -lispro correctional scale -adjust as indicated Eliquis DNR/DNI Requires ongoing antibiotics to treat be acquired pneumonia and UTI Quality Stroke Does the patient have a stroke diagnosis?: No VTE Prior VTE?: No VTE Risk Level:: Medical - moderate - high VTE Device Contraindication: Treatment Not Indicated VTE Drug Contraindication: N/A - Med Ordered
--- NOTE | 2023-06-18 14:26 | PC.NURSE ---
Patient lost IV access. Multiple peripheral IV's attempted with no success. Right AC periph IV removed without issue. Dr Clayton made aware of challenges, order to keep IV out & plan to change antibiotics to PO. Primary RN udpated about plan of care - Sarah Del Cid RN.
--- NOTE | 2023-06-18 16:05 | HO.WOUND ---
Wound Consult: Initial 73yr old?F admitted to [facility] on 06/14 - See progress notes and H&P for detailed history.? Wound consult placed for Sacral Wound POA.? Patient agreeable to assessment and photo documentation.? Of note the patient is incontinent at baseline - Purewick in place - no in correct placement - placement adjusted and direct care team will monitor for effectiveness. Attempted off loading - pt yelled out and riped pillows out from under sides and legs to elevate heels. She was not talking coherently at this point in the consultation, she was anxious and calling out Oh God repeatedly. Concern for new pressure injury development if preventative measures and off loading in place - all pressure relief measures should be emplpoyed. Coccyx Etiology: ??Unstageable Pressure Injury Present on Admission Measurements: 1.2cm x 1.5cm x 0.2 cm Wound Bed: appreciated depth - red moist wound bed with scattered thick adherent yellow slough Drainage / Odor: serosang drainage noted on dressing Edges: ? irregular Natalie wound: ?red pink purple intact tissue - despite pigmentation tissue remains blanchable including light purple coloring. No Induration, Fluctuance or Warmth noted Pain: difficult to assess - pt became anxious during assessment and called out repeatedly - slow to console - repositioned and provided theraputic back rub to sooth - pt reported less anxiety Goals of Treatment: ? Moist wound healing protect from Moisture and friction. Recommendations: 1. Turn and Reposition every 2 hours and as needed for patient comfort.? Use pillows or wedges to support off loading positions. 2. Off Load all bony prominences with use of pillows and heel boots if needed.? Apply Preventative foams where needed. ? 3. Monitor for incontinence and moisture control, use barrier creams when needed for prevention and treatment. - Purewick in place. 4. Provide adequate and supplemental nutrition.? 5. Order or Continue low air loss mattress. 6. Sacrum and Coccyx - Off Load Pressure - Cleanse with PH balance spray or wipes, pat dry. ?Apply thin layer of Triad to wound bed. Do not remove all of paste between applications as this may cause further skin damage.? Cover with foam dressing to aid in off loading and protection from friction. Change every other day and PRN. Re-consult wound care Nurse for wound deterioration or wound changes.
[2023-06-18 16:14] LABS: Glucose, Whole Blood 185 mg/dL (60-115)
[2023-06-18 20:19] LABS: Glucose, Whole Blood 194 mg/dL (60-115)
[2023-06-18] MEDS: Doxycycline Monohydrate 100 MG CAPSULE PO (21:36)
[2023-06-18] MEDS: Insulin Glargine,Hum.rec.anlog 100 UNIT/ML 10 ML VIAL 10 UNIT SUBCUT (21:37)
[2023-06-18] MEDS: Albuterol/Iprat 2.5/0.5MG 3 ML AMPUL.NEB INHALE (22:07)
[2023-06-19] VITALS (16 sets, daily range): BP systolic 107–136; BP diastolic 52–68; PULSE 65–88; RESP 18–28; TEMP 36.1–37.2; O2SAT 92–100; BMI 24.9
--- NOTE | 2023-06-19 00:41 | PM.EVENT ---
Event Note Date of Service: 06/19/23 Event Note: Patient with increasing oxygen requirements overnight. Upon examination, patient with bilateral crackles and tachypnea. Ordered chest x-ray and ABG. Will place on high-flow nasal cannula Time Spent With Patient Time: Total time managing care of this patient today ____ minutes.
[2023-06-19 01:11] LABS: Venous Blood Gas Refer to POC result
[2023-06-19] MEDS: 0.9 % Sodium Chloride Flush 3 ML SYRINGE IVFLUSH ×4 (01:11→21:40)
[2023-06-19] MEDS: Morphine Sulfate 2 MG/ML CARTRIDGE IVPUSH ×3 (01:12→23:12)
[2023-06-19 01:15] LABS: VBG HCO3 27 mmol/L (22-26); VBG pCO2 37 mmHg; VBG pH 7.47 (7.32-7.43); VBG pO2 39 mmHg
[2023-06-19] MEDS: Furosemide 40 MG/4 ML VIAL IVPUSH (02:46)
[2023-06-19 06:14] LABS: MANUAL DIFF FLAG NO
[2023-06-19 06:23] LABS: Basophils Percent Auto 0.4 % (0-2); Eosinophils Absolute Auto 0.4 X10*3/uL (0.0-0.4); Eosinophils Percent Auto 3.7 % (0-4); Imm Gran Abs Auto 0.06 X10*3/uL (0.00-0.03); Imm Gran Pct Auto 0.5 % (0.0-0.4); Lymphocytes Absolute Auto 1.7 X10*3/uL (1.2-4.9); Lymphocytes Percent Auto 15.2 % (20-40); Mean Corpuscular HGB Conc 32.1 g/dl (31.0-35.0); Mean Corpuscular Hemoglobin 25.8 pg (27.0-33.0); Mean Corpuscular Volume 80.2 fL (80.0-98.0); Mean Platelet Volume 10.3 fL (9.4-12.3); Monocytes Absolute Auto 0.8 X10*3/uL (0.1-1.2); Monocytes Percent Auto 7.6 % (2-11); Neutrophils Percent Auto 72.6 % (45-73); Platelet Count 383 X10*3/uL (160-400); Red Blood Count 3.49 X10*6/uL (4.20-5.50); Red Cell Distribution Width 14.2 % (11.0-16.0)
[2023-06-19 06:40] LABS: Alanine Aminotransferase 7 U/L (0-31); Albumin Level 2.9 g/dL (3.5-5.0); Alkaline Phosphatase 65 U/L (39-117); Anion Gap 12 (12-20); Aspartate Amino Transferase 11 U/L (5-31); Bilirubin Total 0.9 mg/dL (0.0-1.0); Blood Urea Nitrogen 52 mg/dL (9-16); Calcium 10.1 mg/dL (8.4-10.2); Carbon Dioxide 25 mmol/L (22-29); Chloride 102 mmol/L (96-108); Creatinine Clr Calc Pharmacy 24.7; Estimated Glomerular Filt Rate 30; Glucose Fasting 138 mg/dL (60-99); Potassium 4.3 mmol/L (3.3-5.1); Sodium 135 mmol/L (135-145); Total Protein 6.3 g/dL (6.5-8.0)
--- NOTE | 2023-06-19 07:29 | PC.NURSE ---
This RN was alerted to pt desatting on monitor at 2352. Attempted to reposition pt and ensure O2 was coming up. O2 via n/c titrated up to 12 with sats still continuing to drop. MD Escamilla paged to bedside, Resp therapy called to room. Pt with significant increase in WOB. She had suprasternal, supraclavicular, and intercostal retracting. NRB applied over n/c while high flow n/c was obtained and set up. blood gas obtained with low pO2, xray obtained, morphine given with slow + effect. Lasix given after xray read. Pt required another dose of morphine as pt chanting, restless/agitated. Pt now sleeping with no s/s distress. sats are holding in mid 90's with no further s/s distress.
[2023-06-19 07:32] LABS: Glucose, Whole Blood 127 mg/dL (60-115)
[2023-06-19] MEDS: carvediloL 12.5 MG TABLET PO ×2 (08:22→21:39)
[2023-06-19] MEDS: Apixaban 2.5 MG TABLET PO ×2 (08:22→21:39)
[2023-06-19] MEDS: Potassium Chloride Packet 20 MEQ PACKET 40 MEQ PO (08:22)
[2023-06-19] MEDS: Isosorbide Mononitrate 30 MG TAB.ER.24H PO (08:22)
[2023-06-19] MEDS: Aspirin Enteric Coated 81 MG TABLET.DR PO (08:22)
[2023-06-19] MEDS: Potassium Chloride ER 10 MEQ TABLET.ER 40 MEQ PO (08:23)
[2023-06-19] MEDS: amLODIPine Besylate 10 MG TABLET PO (08:23)
[2023-06-19] MEDS: Furosemide 20 MG TABLET PO ×2 (08:23→16:13)
[2023-06-19] MEDS: Doxycycline Monohydrate 100 MG CAPSULE PO ×2 (08:23→21:39)
--- NOTE | 2023-06-19 08:26 | P.CDIM_ITS ---
PROVIDER RESPONSE TEXT: To clarify, the appropriate diagnosis supported by the clinical indicators: Diabetic ulcer: Sacrum QUERY TEXT: PHYSICIAN'S DOCUMENTATION REQUEST Date of Query: 06/18/2023 08:08 AM EST Patient Name: Brenna Driver Admit Date: 06/15/2023 Dear Vito Clayton, A review of the medical record indicates additional documentation may be needed. Please review below and update the documentation accordingly. Clinical Indicators: Per Nursing Pressure Injury Assessment 06/15/23, coccyx stage 2 wound foam dressing, barrier cream Based on the above, could you please provide further information regarding the ulcer/wound: Diabetic ulcer Please specify the location and laterality of the ulcer/wound Venous stasis ulcer Please specify the location and laterality of the ulcer/wound Arterial (ischemic) ulcer Please specify the location and laterality of the ulcer/wound Pressure (decubitus) ulcer, stage 2 coccyx Please include the stage of the ulcer and specify the location and laterality of the ulcer/wound Traumatic wound Please specify the location and laterality of the ulcer/wound Other (explain) Clinically unable to determine (explain) Thank you, Luba Robles RN Use of terms such as suspected, likely, concern for, or probable (associated with a specific diagnosi s that is being evaluated, monitored, or treated as if it exists) are acceptable and can be coded in the inpatient se tting, when documented at the time of discharge. Please use your independent medical judgment in providing your response. THIS QUERY IS PART OF THE PERMANENT MEDICAL RECORD
[2023-06-19] MEDS: Mupirocin 2 % Oint 22 GM TUBE 1 APPL TOPICAL ×2 (08:29→21:40)
[2023-06-19 11:24] LABS: Glucose, Whole Blood 250 mg/dL (60-115)
[2023-06-19] MEDS: Insulin Lispro 100 UNIT/ML 3 ML VIAL SUBCUT ×2 (12:00→21:39)
[2023-06-19 15:56] LABS: Glucose, Whole Blood 147 mg/dL (60-115)
[2023-06-19 19:56] LABS: Glucose, Whole Blood 196 mg/dL (60-115)
[2023-06-19] MEDS: Insulin Glargine,Hum.rec.anlog 100 UNIT/ML 10 ML VIAL 10 UNIT SUBCUT (21:39)
--- NOTE | 2023-06-19 23:01 | PC.NURSE ---
Pt c/o air hunger stating I can't breath , tachypnea, yelling out to staff. MD Escamilla notified. PRN Morphine order placed for dyspnea. Continues on HFNC.
[2023-06-20 03:57] VITALS: PULSE 65; RESP 18; O2SAT 100
[2023-06-20 04:00] VITALS: BP 115/51; PULSE 65; RESP 18; TEMP 37.4; O2SAT 99
[2023-06-20 04:39] VITALS: RESP 24
[2023-06-20] MEDS: Morphine Sulfate 2 MG/ML CARTRIDGE IVPUSH (04:39)
[2023-06-20 06:00] VITALS: BMI 25.1
[2023-06-20 07:23] LABS: MANUAL DIFF FLAG NO
[2023-06-20 07:33] LABS: Basophils Absolute Auto 0.1 X10*3/uL (0.0-0.2); Basophils Percent Auto 0.5 % (0-2); Eosinophils Absolute Auto 0.7 X10*3/uL (0.0-0.4); Eosinophils Percent Auto 7.1 % (0-4); Hematocrit 25.7 % (37.0-47.0); Hemoglobin 8.2 g/dl (12.0-16.0); Imm Gran Abs Auto 0.06 X10*3/uL (0.00-0.03); Imm Gran Pct Auto 0.6 % (0.0-0.4); Lymphocytes Absolute Auto 1.5 X10*3/uL (1.2-4.9); Lymphocytes Percent Auto 15.2 % (20-40); Mean Corpuscular HGB Conc 31.9 g/dl (31.0-35.0); Mean Corpuscular Volume 78.4 fL (80.0-98.0); Mean Platelet Volume 9.7 fL (9.4-12.3); Monocytes Absolute Auto 0.8 X10*3/uL (0.1-1.2); Monocytes Percent Auto 7.7 % (2-11); Neutrophils Absolute Auto 6.9 x10*3/uL (2.0-8.3); Neutrophils Percent Auto 68.9 % (45-73); Platelet Count 392 X10*3/uL (160-400); Red Blood Count 3.28 X10*6/uL (4.20-5.50); Red Cell Distribution Width 14.1 % (11.0-16.0)
[2023-06-20 07:43] LABS: Glucose, Whole Blood 65 mg/dL (60-115)
[2023-06-20 07:46] VITALS: BP 121/68; PULSE 65; RESP 20; TEMP 36.3
[2023-06-20 07:46] LABS: Alanine Aminotransferase 5 U/L (0-31); Albumin Level 2.7 g/dL (3.5-5.0); Alkaline Phosphatase 61 U/L (39-117); Anion Gap 12 (12-20); Aspartate Amino Transferase 10 U/L (5-31); Bilirubin Total 0.8 mg/dL (0.0-1.0); Blood Urea Nitrogen 44 mg/dL (9-16); Carbon Dioxide 27 mmol/L (22-29); Chloride 101 mmol/L (96-108); Creatinine Clr Calc Pharmacy 30.9; Estimated Glomerular Filt Rate 39; Glucose Fasting 62 mg/dL (60-99); Potassium 3.7 mmol/L (3.3-5.1); Sodium 136 mmol/L (135-145); Total Protein 5.9 g/dL (6.5-8.0)
[2023-06-20] MEDS: Doxycycline Monohydrate 100 MG CAPSULE PO (08:45)
[2023-06-20] MEDS: Potassium Chloride ER 10 MEQ TABLET.ER 40 MEQ PO (08:45)
[2023-06-20] MEDS: Isosorbide Mononitrate 30 MG TAB.ER.24H PO (08:46)
[2023-06-20] MEDS: Furosemide 20 MG TABLET PO (08:46)
[2023-06-20] MEDS: Aspirin Enteric Coated 81 MG TABLET.DR PO (08:46)
[2023-06-20] MEDS: carvediloL 12.5 MG TABLET PO (08:46)
[2023-06-20] MEDS: 0.9 % Sodium Chloride Flush 3 ML SYRINGE IVFLUSH (08:46)
[2023-06-20] MEDS: Apixaban 2.5 MG TABLET PO (08:46)
[2023-06-20] MEDS: amLODIPine Besylate 10 MG TABLET PO (08:46)
--- NOTE | 2023-06-20 10:28 | HO.WOUND ---
Wound Consult: Follow up 73yr old? F admitted to [facility] [place] on - See progress notes and H&P for detailed history.? Wound consult follow up for heel assessment. Patient agreeable to assessment. Bilateral heels were assessed - remain intact and pink but blanchable throughout. No pressure Injury noted at this time. There are preventative foam dressing in place appropriately. Recommend continue with foam dressing for prevention and float heels off of bed surface when patient is agreeable. No new topical recommendations needed at this time.
--- NOTE | 2023-06-20 10:36 | MHC.CM.PN ---
Per ROUNDS discussion, Patient is medically cleared for dc to SNF/STR today. Patient will return to [facility] today at 12:30PM, via [facility]. CM met with Patient at bedside and addressed IMM with her (original was given to Patient and a copy has been placed on the chart). CM left a detailed message for HCP/Haily @ [phone], informing her of the dc plan.
[2023-06-20 11:17] VITALS: BP 126/65; PULSE 66; RESP 20; TEMP 36.1; O2SAT 96
[2023-06-20 11:23] LABS: Glucose, Whole Blood 165 mg/dL (60-115)
--- NOTE | 2023-06-20 11:40 | MHC.CLN ---
F/U PT WITH INCREASED NUTRITION RISK R/T PRESSURE INJURY PO INTAKE REMAINS VARIABLE RANGING FROM 25-100% REQUIRES 1:1 FEED DIET RX: 1800DM GRD M/S-APPROPRIATE PT RECEIVING ENSURE MAX BID TO PROMOTE WOUND HEALING PROVIDES 300KCALS, 60G PROTEIN CONTINUE TO MONITOR PO INTAKE AND ENCOURAGE SUPPLEMENT POSSIBLE D/C BACK TO SNF TODAY
--- NOTE | 2023-06-20 12:13 | P.DS_ITS ---
DS: Providers Provider Date of Service: 06/20/23 Date of admission: 06/14/23 20:07 Date of discharge: 06/20/23 Primary care physician: Israel Figueredo MD Consults: 06/14/23 20:13 Consult to Cardiology Routine Consulting Provider: [facility] [place] [facility] Reason for consultation: CHF, bilat pleural effusions Has provider been notified: No 06/15/23 07:54 Consult to Wound Care Routine Reason for consultation: sacral wound 06/16/23 08:57 Consult to Infectious Diseases Routine Consulting Provider: Liz Christiansen Reason for consultation: ESBL UTI DS: Diagnosis Discharge Diagnosis (1) Hypoxic respiratory failure: Status: Acute (2) Pneumonia: Status: Acute DS: Summary Hospital Course Hospital Course: 73 y/o woman with past medical history significant for HFrEF (25-30%), pulmonary embolus on Eliquis, hypertension, chronic kidney disease, 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 She was found to have significant low oxygen saturation (low 50s yesterday and in the 70s today). The patient looks acutely ill and tired and and was able to answer simple questions appropriately. His daughter was at bedside and contributed with the HPI. The patient denied chest pain or palpitations. She also denied any abdominal pain, nausea, vomiting or diarrhea. There is no fever or chills reported. In the ED, she was found to have significant tachypnea and tachycardia. There is no fever. She is currently on high-flow via nasal cannula. Her blood workup was remarkable for leukocytosis of 17.5 and lactic acidosis that is improving (3.1-->2.2). Venous blood gas showed no respiratory acidosis. There is mild hyponatremia. Creatinine is increasing. Troponin is elevated. BNP is 2,178. UA consistent with urinary tract infection. CXR is consistent with congestive heart failure with bilateral pleural effusion and bibasilar consolidation/atelectasis. ED tx: Oxygen (high-flow) Solu-Medrol 60 mg IV, albuterol 7.5 mg neb, cefepime 1 g IV, NS 750 mL, vancomycin 1.5 g. Hospital course Admitted to telemetry and started on cefepime and azithromycin.Lasix was switched to IV. Other medicines were continued. Over the course of the next several days she gradually improved and at this point in time is ready to be dis charged on a course of oral doxycycline at the recommendation of Infectious Disease Time Attestation Discharge coordination time: Greater than 30 minutes Quality: Safe Use of Opioids Does Pt have an Active Cancer Diagnosis on the Problem List?: No Quality: Stroke Does the patient have a stroke diagnosis?: No Physical Exam Vital Signs: Vital Signs: Last Vital Signs Temp 97.0 F 06/20/23 11:17 Pulse 66 06/20/23 11:17 Resp 20 06/20/23 11:17 BP 126/65 06/20/23 11:17 Pulse Ox 96 06/20/23 11:17 O2 Del Method Nasal Cannula 06/20/23 11:17 O2 Flow Rate 4 06/20/23 11:17 FiO2 43 06/20/23 07:46 Oxygen Flow Rate 40 06/14/23 13:38 BMI result Body Mass Index 25.1 Const: Other: Awake alert ; aphasic in no acute distress Resp: Other: Diminished at bases with scant expiratory wheezes throughout Cardio: Other: No S4; positive S1-S2; no S3 murmurs rubs or gallops GI: Other: Soft nontender nondistended normoactive bowel sounds Extrem: Other: Extremities without edema DS: Data Data Completed and Pending Completed studies during hospitalization [Text1]: Procedures Insertion of Infusion Device into Superior Vena Cava, Percutaneous Approach (03/13/23) Introduction of Remdesivir Anti-infective into Peripheral Vein, Percutaneous Approach, [employer] 5 (03/13/23) Ultrasonography of Superior Vena Cava, Guidance (03/13/23) Labs on day of discharge: Laboratory Results - last 24 hr 06/19/23 06/19/23 06/20/23 15:51 19:53 06:59 WBC 10.0 RBC 3.28 L Hgb 8.2 L Hct 25.7 L MCV 78.4 L MCH 25.0 L MCHC 31.9 RDW 14.1 Plt Count 392 MPV 9.7 Immature Gran % (Auto) 0.6 H Neut % (Auto) 68.9 Lymph % (Auto) 15.2 L [place] % (Auto) 7.7 Eos % (Auto) 7.1 H Baso % (Auto) 0.5 Lymph # (Auto) 1.5 [place] # (Auto) 0.8 Eos # (Auto) 0.7 H Baso # (Auto) 0.1 Abs Immat Gran (auto) 0.06 H Absolute Neuts (auto) 6.9 Absolute Nucleated RBC 0.000 Nucleated RBC % (auto) 0.0 Sodium 136 Potassium 3.7 Chloride 101 Carbon Dioxide 27 Anion Gap 12 BUN 44 H Creatinine 1.33 Estim Creat Clear Calc 30.9 Estimated GFR 39 POC Glucose 147 H 196 H Fasting Glucose 62 Calcium 10.0 Total Bilirubin 0.8 AST 10 ALT 5 Alkaline Phosphatase 61 Total Protein 5.9 L Albumin 2.7 L 06/20/23 06/20/23 07:35 11:15 WBC RBC Hgb Hct MCV MCH MCHC RDW Plt Count MPV Immature Gran % (Auto) Neut % (Auto) Lymph % (Auto) [place] % (Auto) Eos % (Auto) Baso % (Auto) Lymph # (Auto) [place] # (Auto) Eos # (Auto) Baso # (Auto) Abs Immat Gran (auto) Absolute Neuts (auto) Absolute Nucleated RBC Nucleated RBC % (auto) Sodium Potassium Chloride Carbon Dioxide Anion Gap BUN Creatinine Estim Creat Clear Calc Estimated GFR POC Glucose 65 165 H Fasting Glucose Calcium Total Bilirubin AST ALT Alkaline Phosphatase Total Protein Albumin Discharge Plan Discharge Anticipated Discharge Date/Time: 06/20/23 12:09 Patient Disposition: [facility] Discharge Diagnosis: Acute on chronic systolic congestive heart failure Referrals: Maldonado Collins [Outside] - 1 Week Israel Figueredo MD [Primary Care Provider] - 1 Week Discharge Medications: New ipratropium-albuterol 0.5 mg-3 mg(2.5 mg base)/3 mL Solution For Nebulization 3 ml inhalation RQ4H WHILE AWAKE PRN (Reason: Shortness Of Breath/Wheezing) Qty: 270 0RF isosorbide mononitrate 30 mg Tablet Extended Release 24 Hr 30 mg PO DAILY Qty: 30 0RF Protocol: Hold for SBP< HOLD for SBP < : 90 doxycycline monohydrate 100 mg Capsule 100 mg PO Q12H Qty: 14 0RF Continued trazodone 50 mg tablet 25 mg PO BID sodium chloride 1 gram Tablet 1 g PO QAM furosemide 20 mg Tablet 20 mg PO BID insulin aspart U-100 100 unit/mL (3 mL) insulin pen 0 sliding scale dose subcut QIDACHS Protocol: Insulin Correction Scale Less than or equal to 110 ---- Give (units): 0 111 to 150 Give (units): 0 151 to 200 Give (units): 2 201 to 250 Give (units): 4 251 to 300 Give (units): 6 301 to 350 Give (units): 8 Greater than 350 Give (units): 10 Call MD if Blood Glucose > : 350 tramadol 50 mg Tablet 25 mg PO Q6H PRN (Reason: Pain) potassium chloride 10 mEq Capsule, Extended Release 40 meq PO DAILY carvedilol 12.5 mg Tablet 12.5 mg PO BID Rx Instructions: must administer with a meal/food glipizide 10 mg Tablet 10 mg PO DAILY melatonin 3 mg Tablet 3 mg PO BEDTIME PRN (Reason: Sleep) aspirin 81 mg Tablet,Delayed Release (Dr/Ec) 81 mg PO DAILY sodium bicarbonate 650 mg Tablet 1,300 mg PO DAILY amlodipine 10 mg tablet 10 mg PO DAILY insulin glargine [Lantus Solostar U-100 Insulin] 100 unit/mL (3 mL) Insulin Pen 20 unit SUBCUT BEDTIME Eliquis 5 mg Tablet 5 mg PO BID Qty: 60 0RF Discharge Orders: Discharge Order (Routine); Ordered 06/20/23 Ordered By: Vito Clayton Diet: Advance to usual diet Activity on Discharge: As tolerated Stand Alone Forms: Patient Portal Discharge page Care Plan Goals: Continue all pre-hospital medications as ordered; Imdur has been added to your regimen Health Concerns: Complete a course of doxycycline 100 mg twice daily Plan of Treatment: As per receiving facility Assessment: See discharge summary
[2023-06-20] MEDS: Insulin Lispro 100 UNIT/ML 3 ML VIAL SUBCUT (12:32)
[2023-06-20] MEDS: Mupirocin 2 % Oint 22 GM TUBE 1 APPL TOPICAL (12:33)
== END 2023-06-20 13:00 | disposition skilled nursing facility (03) | DRG 871 ==
LOC: HO.ED 18:42 → HO.EDOVER 20:13 → HO.IMC 06-15 00:16
PROVIDERS: Internal Medicine; Student in an Organized Health Care Education/Training Program; Admitting Provider Internal Medicine; Emergency Provider Emergency Medicine; PCP Family Medicine; Visit Provider Hospitalist
DX: A41.9 Sepsis, unspecified organism (principal); I21.A1 Myocardial infarction type 2; I50.23 Acute on chronic systolic (congestive) heart failure; J96.01 Acute respiratory failure with hypoxia; J18.9 Pneumonia, unspecified organism; R47.01 Aphasia; Z16.12 Extended spectrum beta lactamase (ESBL) resistance; I13.0 Hypertensive heart and chronic kidney disease with heart failure and stage 1 through stage 4 chronic kidney disease, or unspecified chronic kidney disease; N18.4 Chronic kidney disease, stage 4 (severe); N39.0 Urinary tract infection, site not specified; I48.92 Unspecified atrial flutter; I69.351 Hemiplegia and hemiparesis following cerebral infarction affecting right dominant side; R13.10 Dysphagia, unspecified; L98.499 Non-pressure chronic ulcer of skin of other sites with unspecified severity; Z66 Do not resuscitate; E11.22 Type 2 diabetes mellitus with diabetic chronic kidney disease; E78.2 Mixed hyperlipidemia; D63.1 Anemia in chronic kidney disease; Z20.822 Contact with and (suspected) exposure to COVID-19; Z86.711 Personal history of pulmonary embolism; Z79.4 Long term (current) use of insulin; Z79.01 Long term (current) use of anticoagulants; Z79.82 Long term (current) use of aspirin; Z79.899 Other long term (current) drug therapy
CPT/HCPCS: 36415; 71045; 80048; 80053; 80076; 80162; 81001; 81003; 82803; 82947; 83605; 83690; 83735; 83880; 84145; 84443; 84484; 85025; 85610; 87040; 87086; 87088; 87186; 87635; 87640; 87641; 92526; 92610; 92950; 93005; 94640; 99285; C9113; J0456; J0692; J1940; J2185; J2270; J2405; J2930; J3371

== ENCOUNTER → 2023-06-14 13:35 | Outpatient (BNV) | payer MEDICARE, SELFPAY | PROVIDERS: Emergency Provider Emergency Medicine; PCP Family Medicine; Visit Provider Internal Medicine Cardiovascular Disease | DX: R06.02 Shortness of breath (principal) | CPT/HCPCS: 93010 ==

== ENCOUNTER 2023-06-14 20:07 | Outpatient (BNV) | payer MEDICARE, SELFPAY | END 2023-06-16 07:41 | PROVIDERS: Admitting Provider Internal Medicine; Emergency Provider Emergency Medicine; PCP Family Medicine; Visit Provider Internal Medicine Cardiovascular Disease | DX: R00.0 Tachycardia, unspecified (principal) | CPT/HCPCS: 93010 ==

== ENCOUNTER → 2023-06-14 20:07 | Outpatient (BNV) | payer MEDICARE, SELFPAY | PROVIDERS: Admitting Provider Internal Medicine; Emergency Provider Emergency Medicine; PCP Family Medicine; Visit Provider Internal Medicine Cardiovascular Disease | DX: I50.23 Acute on chronic systolic (congestive) heart failure (principal) | CPT/HCPCS: 99222; 99232 ==

== ENCOUNTER → 2023-06-14 20:07 | Outpatient (BNV) | payer MEDICARE, SELFPAY | PROVIDERS: Admitting Provider Internal Medicine; Emergency Provider Emergency Medicine; PCP Family Medicine; Visit Provider Internal Medicine | DX: J96.01 Acute respiratory failure with hypoxia (principal); I50.23 Acute on chronic systolic (congestive) heart failure; J18.9 Pneumonia, unspecified organism; I26.99 Other pulmonary embolism without acute cor pulmonale | CPT/HCPCS: 99223; 99232; 99233; 99239; 99499 ==

== ENCOUNTER → 2023-06-14 20:07 | Outpatient (BNV) | payer MEDICARE, SELFPAY | PROVIDERS: Admitting Provider Internal Medicine; Emergency Provider Emergency Medicine; PCP Family Medicine; Visit Provider Internal Medicine | DX: J96.01 Acute respiratory failure with hypoxia (principal); I50.23 Acute on chronic systolic (congestive) heart failure | CPT/HCPCS: 99222 ==